=== PATIENT | female | born 1940 | race Caucasian/White ===

== ENCOUNTER → 2017-02-28 | Outpatient (CLI) | payer MEDICARE, OTHER ==
[~2017-02-28] MED LIST: ASPI1TAB PO; COUM2.5T17 PO; HAIRTAB5 PO; MAGN400C2 PO; NITR0.4D6 SL; OCUVCAP2 PO; PERC5TAB12 PO; PRAV40TA2 PO; SYST1SOL OU; TYLE325T5 PO
--- NOTE | 2017-02-28 15:21 | REP ---
MR LUMBAR SPINE WITHOUT CONTRAST: HISTORY: Spinal stenosis. Decreased signal intensity is on T2-weighted images is present in the lumbar intervertebral discs. The discs are decreased in height. These findings are consistent with disc degeneration. There is no disc bulge or herniation at the L1-2 level. There is hypertrophy of the posterior articulating facets. The L1 nerves exit the neural foramina without compression. A diffuse disc bulge is present at the L2-3 level. There is hypertrophy of the ligamenta flava and posterior articulating facets. There are 4 mm of grade I spondylolisthesis of L2 on 3. These findings produce minimal central canal stenosis. The L2 nerves exit the neural foramina without compression. A diffuse disc bulge is present at the L3-4 level. There is hypertrophy of the ligamenta flava and posterior articulating facets. These findings produce mild central canal stenosis. The L3 nerves exit the neural foramina without compression. A diffuse disc bulge is present at the L4-5 level. There is hypertrophy of the ligamenta flava and posterior articulating facets. Synovial cysts 4 mm in size are present medial to the L4-5 facet joints. There are 3 mm of grade I spondylolisthesis of L4 on 5. These findings produce severe central canal stenosis. The L4 nerves exit the neural foramina without compression. A diffuse disc bulge is present at the L5-S1 level. There is no thecal sac compression. There is hypertrophy of the posterior articulating facets. The L4 nerves exit the neural foramina without compression. The conus medullaris is normal in appearance terminating at the level of the L1-2 intervertebral disc. Increased signal intensity on T2-weighted images is present in the inferior endplate of the L3 vertebral body. This represents degenerative change. Normal signal intensity is present in the remaining lumbar vertebral bodies. IMPRESSION: 1. Minimal central canal stenosis at the L2-3 level secondary to disc bulge, ligamentous and facet hypertrophy and grade 1 spondylolisthesis. 2. Mild central canal stenosis at the L3-4 level secondary to disc bulge, ligamentous and facet hypertrophy. 3. Severe central canal stenosis at the L4-5 level secondary to disc bulge, ligamentous and facet hypertrophy , bilateral synovial cysts and grade 1 spondylolisthesis. 4. Diffuse disc bulge at the L5-S1 level without thecal sac or nerve compression. Signed by Francisco Santoyo MD 02/28/2017 03:34 P
== END ==
LOC: M RAD 13:42
PROVIDERS: ATTEND Orthopaedic Surgery
DX: M99.73 Connective tissue and disc stenosis of intervertebral foramina of lumbar region (principal); M51.37 Other intervertebral disc degeneration, lumbosacral region

== ENCOUNTER → 2017-03-08 | Outpatient (CLI) | payer MEDICARE, OTHER ==
--- NOTE | 2017-03-08 10:55 | REP ---
Right ribs four views: Comparison is 12/25/2015. There is no rib fracture or other rib abnormality. There is grade 1 compression deformity of the T7 vertebral body, unchanged. There is diffuse demineralization. There is thoracic scoliosis convex right. This is unchanged. There is mild right glenohumeral osteoarthritis. There is an accessory ossicle at the superior margin of the right acromioclavicular joint.
--- NOTE | 2017-03-08 11:03 | REP ---
Right scapula two views: There is diffuse demineralization. There is acromioclavicular osteoarthritis. There is glenohumeral osteoarthritis. There is no scapular fracture or other scapular abnormality.
--- NOTE | 2017-03-08 11:04 | REP ---
Right shoulder three views: There is diffuse demineralization. There is acromioclavicular glenohumeral osteoarthritis. There is no fracture or dislocation. There is a calcification at the superior margin of the acromioclavicular joint, likely a degenerative ossicle or accessory ossicle. There are no other calcifications. Impression: Osteoarthritis as described. Calcification at the superior margin of the acromioclavicular joint as described. Demineralization.
--- NOTE | 2017-03-08 11:47 | REP ---
RIGHT HUMERUS: Two views of right humerus performed and demonstrate no fracture or dislocation. There is narrowing, spurring and sclerotic change at the acromioclavicular and glenohumeral joints. IMPRESSION: Degenerative changes at the shoulder without evidence of acute fracture or dislocation.
== END ==
LOC: M CLY 09:55
PROVIDERS: ATTEND Nurse Practitioner Family
DX: S49.91XA Unspecified injury of right shoulder and upper arm, initial encounter (principal); S23.41XA Sprain of ribs, initial encounter; W17.89XA Other fall from one level to another, initial encounter; Y92.009 Unspecified place in unspecified non-institutional (private) residence as the place of occurrence of the external cause; M19.011 Primary osteoarthritis, right shoulder; M41.34 Thoracogenic scoliosis, thoracic region; M85.811 Other specified disorders of bone density and structure, right shoulder; Y99.8 Other external cause status; Y93.01 Activity, walking, marching and hiking
CPT/HCPCS: 71100; 73010; 73030; 73060; G0463

== ENCOUNTER → 2017-06-27 | Outpatient (REF) | payer MEDICARE, OTHER | LOC: M SFHCCLAY 09:24 | PROVIDERS: ATTEND Family Medicine | DX: I25.10 Atherosclerotic heart disease of native coronary artery without angina pectoris (principal); E78.00 Pure hypercholesterolemia, unspecified; M81.0 Age-related osteoporosis without current pathological fracture ==

== ENCOUNTER → 2017-06-27 | Outpatient (CLI) | payer MEDICARE, OTHER ==
--- NOTE | 2017-06-27 11:06 | REP ---
Clinical: Pain. Technique: AP, lateral, bilateral oblique views of the left foot. Findings: Age-related osteopenia and mild midfoot degenerative changes are appreciated including subchondral sclerosis and minimal joint space narrowing. Vascular calcifications are identified at the ankle. No acute fracture dislocation. Impression: Age-related osteopenia and mild midfoot degenerative changes. Signed by Aditya Barcenas MD 06/27/2017 10:57 A
== END ==
LOC: M CLY 09:45
PROVIDERS: ATTEND Family Medicine
DX: M79.672 Pain in left foot (principal); M77.42 Metatarsalgia, left foot; M19.072 Primary osteoarthritis, left ankle and foot; M89.9 Disorder of bone, unspecified
CPT/HCPCS: 73630; 90662; G0008

== ENCOUNTER → 2017-07-02 | Outpatient (REF) | payer MEDICARE, OTHER ==
[2017-07-02 13:41] LABS: ALBUMIN 3.6 GM/DL (3.2-5.2); ALBUMIN/GLOBULIN RATIO 1.09 (1.00-1.93); ALKALINE PHOSPHATASE 62 U/L (45-117); ALT/SGPT 23 U/L (12-78); ANION GAP 7 MEQ/L (8-16); AST/SGOT 16 U/L (7-37); BILIRUBIN,TOTAL 0.5 MG/DL (0.2-1.0); BLOOD UREA NITROGEN 18 MG/DL (7-18); CARBON DIOXIDE LEVEL 31 MEQ/L (21-32); CHLORIDE LEVEL 106 MEQ/L (98-107); CHOLESTEROL LEVEL 197 MG/DL (<200); CREATININE FOR GFR 0.68 MG/DL (0.55-1.02); GLOMERULAR FILTRATION RATE > 60.0 (>39); GLUCOSE, FASTING 86 MG/DL (83-110); POTASSIUM SERUM 4.3 MEQ/L (3.5-5.1); SODIUM LEVEL 144 MEQ/L (136-145); TOTAL PROTEIN 6.9 GM/DL (6.4-8.2); TRIGLYCERIDES LEVEL 94 MG/DL (<150)
== END ==
LOC: M SFHCCLAY 07:02
PROVIDERS: ATTEND Family Medicine
DX: I25.10 Atherosclerotic heart disease of native coronary artery without angina pectoris (principal); E78.00 Pure hypercholesterolemia, unspecified; M81.0 Age-related osteoporosis without current pathological fracture

== ENCOUNTER → 2017-07-09 | Outpatient (CLI) | payer MEDICARE, OTHER ==
--- NOTE | 2017-07-09 11:03 | REP ---
Clinical: Trauma. Fall. Technique: AP, lateral, bilateral oblique views of the left wrist. Findings: There is a comminuted intra-articular fracture of the distal radial metaphysis with volar angulation and overlying soft tissue swelling. Osteopenia and degenerative changes limit further evaluation of the carpal bones/wrist and visualized hand. Impression: 1. Comminuted intra-articular fracture of the distal radial metaphysis with volar angulation. 2. Osteopenia and degenerative changes. Signed by Aditya Barcenas MD 07/09/2017 10:55 A
--- NOTE | 2017-07-09 11:04 | REP ---
Clinical: Trauma. Technique: AP and lateral views of the left forearm. Findings: There is an acute fracture involving the distal radial metaphysis with volar angulation. Impression: Acute fracture involving the distal radial metaphysis. Signed by Aditya Barcenas MD 07/09/2017 10:55 A
== END ==
LOC: M CLY 10:07
PROVIDERS: ATTEND Nurse Practitioner Family
DX: S52.572A Other intraarticular fracture of lower end of left radius, initial encounter for closed fracture (principal); M85.88 Other specified disorders of bone density and structure, other site; R60.0 Localized edema; W19.XXXA Unspecified fall, initial encounter; X58.XXXA Exposure to other specified factors, initial encounter; Y92.098 Other place in other non-institutional residence as the place of occurrence of the external cause; Y93.9 Activity, unspecified
CPT/HCPCS: 73090; 73110; G0463

== ENCOUNTER → 2018-01-22 | Outpatient (CLI) | payer MEDICARE, OTHER | LOC: M CLY 14:57 | DX: M77.32 Calcaneal spur, left foot (principal); M79.672 Pain in left foot | CPT/HCPCS: 73610; G0463 ==

== ENCOUNTER → 2018-06-27 | Outpatient (REF) | payer MEDICARE, OTHER | LOC: M SFHCCLAY 08:26 | DX: I25.10 Atherosclerotic heart disease of native coronary artery without angina pectoris (principal); E78.00 Pure hypercholesterolemia, unspecified; M81.0 Age-related osteoporosis without current pathological fracture ==

== ENCOUNTER → 2018-07-07 | Outpatient (REF) | payer MEDICARE, OTHER ==
[2018-07-07 12:47] LABS: ALBUMIN 3.6 GM/DL (3.2-5.2); ALBUMIN/GLOBULIN RATIO 1.24 (1.00-1.93); ALKALINE PHOSPHATASE 72 U/L (45-117); ALT/SGPT 24 U/L (12-78); ANION GAP 7 MEQ/L (8-16); AST/SGOT 18 U/L (7-37); BILIRUBIN,TOTAL 0.4 MG/DL (0.2-1.0); BLOOD UREA NITROGEN 25 MG/DL (7-18); CALCIUM LEVEL 8.8 MG/DL (8.8-10.2); CARBON DIOXIDE LEVEL 29 MEQ/L (21-32); CHLORIDE LEVEL 106 MEQ/L (98-107); CHOLESTEROL LEVEL 213 MG/DL (<200); CHOLESTEROL RISK RATIO 2.315 (<5); CREATININE FOR GFR 0.71 MG/DL (0.55-1.30); GLOMERULAR FILTRATION RATE > 60.0 (>32); GLUCOSE, FASTING 91 MG/DL (70-100); HDL CHOLESTEROL 92 MG/DL (>40); LDL CHOLESTEROL 105 MG/DL (<100); NON-HDL-C 121 MG/DL; SODIUM LEVEL 142 MEQ/L (136-145); TOTAL 25(OH) VITAMIN D 31.6 NG/ML (30.0-100.0); TOTAL PROTEIN 6.5 GM/DL (6.4-8.2); TRIGLYCERIDES LEVEL 81 MG/DL (<150)
== END ==
LOC: M SFHCCLAY 07:05
DX: I25.10 Atherosclerotic heart disease of native coronary artery without angina pectoris (principal); E78.00 Pure hypercholesterolemia, unspecified; M81.0 Age-related osteoporosis without current pathological fracture
CPT/HCPCS: 80053

== ENCOUNTER → 2019-02-09 | Outpatient (REF) | payer MEDICARE, OTHER ==
[~2019-02-09] MED LIST changes: -ASPI1TAB PO; +ASPI81TA26 PO
[2019-02-09 11:58] LABS: CHOLESTEROL RISK RATIO 1.875 (<5)
== END ==
LOC: M SFHCCLAY 06:57
PROVIDERS: ATTEND Family Medicine
DX: I25.10 Atherosclerotic heart disease of native coronary artery without angina pectoris (principal)

== ENCOUNTER → 2019-07-27 | Outpatient (CLI) | payer MEDICARE, OTHER ==
--- NOTE | 2019-07-27 16:26 | REP ---
MRI lumbar spine: 07/27/2019. Indication: Low back pain. Comparison: 02/28/2017. Technique: Multiplanar short and long TR sequences of the lumbar spine were performed without IV Gadolinium. Findings: There is levoscoliosis of the lumbar spine with the convexity centered at L2/L3. Grade 1 anterolisthesis of L2 on L3 and L4 on L5 are present secondary to facet arthrosis. No worrisome marrow signal is present. Disc desiccation and disc space narrowing is present throughout most pronounced at L3/L4 and L5/S1. The visualized cord is unremarkable. L1/L2: There is no focal disc herniation or significant spinal canal / neural foraminal narrowing. L2/L3: Diffuse disc uncovering/bulge and bilateral facet arthropathy are present with moderate spinal canal and neural foraminal narrowing. L3/L4: Diffuse disc bulge and bilateral facet arthropathy are present with moderate to severe left greater than right recess narrowing. Moderate bilateral neural foraminal narrowing is present. L4/L5: Diffuse disc uncovering/bulge and bilateral facet arthropathy as well as ligamental laxity are present with moderate bilateral recess narrowing. Mild to moderate bilateral neural foraminal narrowing is present. L5/S1: Mild diffuse disc bulge and bilateral facet arthropathy are present without significant spinal canal or neural foraminal narrowing. Impression: Scoliosis, spondylolisthesis and multilevel degenerative sequelae as described. The greatest degree of recess narrowing is on the left at L3/L4. Electronically Signed by Arthur Sullivan DO 07/27/2019 04:16 P
== END ==
LOC: M RAD 15:00
PROVIDERS: ATTEND Orthopaedic Surgery
DX: M43.16 Spondylolisthesis, lumbar region (principal); M51.27 Other intervertebral disc displacement, lumbosacral region

== ENCOUNTER → 2019-09-04 | Outpatient (REF) | payer MEDICARE, OTHER ==
[2019-09-04 11:33] LABS: PLATELET COUNT, AUTOMATED 330 10^3/uL (150-450)
[2019-09-04 11:44] LABS: INR 1.03; PROTHROMBIN TIME 13.3 SECONDS (11.8-14.0)
[2019-09-04 11:45] LABS: PARTIAL THROMBOPLASTIN TIME 28.8 SECONDS (25.0-38.4)
== END ==
LOC: M LABDRAW1 09:15
PROVIDERS: ATTEND Physician Assistant
DX: Z01.812 Encounter for preprocedural laboratory examination (principal); M53.3 Sacrococcygeal disorders, not elsewhere classified

== ENCOUNTER → 2020-01-08 | Outpatient (CLI) | payer MEDICARE, OTHER | LOC: M LABSMTC 09:57 | PROVIDERS: ATTEND Physical Medicine & Rehabilitation | DX: Z11.59 Encounter for screening for other viral diseases (principal) ==

== ENCOUNTER → 2020-02-23 | Outpatient (REF) | payer MEDICARE, OTHER ==
[~2020-02-23] MED LIST changes: +ACET1TAB55 PO; +ALAW0.02 OU; +COLA100C5 PO; +CVS-161 PO; +D31000TA2 PO; +ECOT81TA5 PO; +XARE10TA PO
[2020-02-23 12:57] LABS: ALBUMIN 3.5 GM/DL (3.2-5.2); ALT/SGPT 121 U/L (12-78); BILIRUBIN,TOTAL 0.4 MG/DL (0.2-1.0); BLOOD UREA NITROGEN 16 MG/DL (7-18); CARBON DIOXIDE LEVEL 28 MEQ/L (21-32); CHLORIDE LEVEL 111 MEQ/L (98-107); CHOLESTEROL LEVEL 171 MG/DL (<200); CHOLESTEROL RISK RATIO 2.085 (<5); CREATININE FOR GFR 0.55 MG/DL (0.55-1.30); GLOMERULAR FILTRATION RATE > 60.0 (>32); GLUCOSE, FASTING 85 MG/DL (70-100); HDL CHOLESTEROL 82 MG/DL (>40); LDL CHOLESTEROL 70 MG/DL (<100); NON-HDL-C 89 MG/DL; SODIUM LEVEL 144 MEQ/L (136-145); TOTAL PROTEIN 6.6 GM/DL (6.4-8.2); TRIGLYCERIDES LEVEL 94 MG/DL (<150)
== END ==
LOC: M SFHCCLAY 07:05
PROVIDERS: ATTEND Family Medicine
DX: M81.0 Age-related osteoporosis without current pathological fracture (principal); I25.10 Atherosclerotic heart disease of native coronary artery without angina pectoris; Z79.01 Long term (current) use of anticoagulants; Z79.82 Long term (current) use of aspirin; Z79.899 Other long term (current) drug therapy

== ENCOUNTER → 2020-03-23 | Outpatient (CLI) | payer MEDICARE, OTHER ==
--- NOTE | 2020-05-21 10:34 | REP ---
RIGHT RIB SERIES: 4-VIEWS HISTORY: Contusion right anterior chest. FINDINGS: 4-views of the right rib are performed. There is osteopenia. No fracture or bone lesion is seen. There is mild biapical pleural thickening on the accompanying PA view of the chest with very mild bibasilar interstitial fibrotic change. The lungs are clear. There is no pneumothorax or pleural effusion. The heart is normal in size. There is calcification of the thoracic aorta. There is curvature of the lower thoracic spine convex to the right and at the thoracolumbar junction convex to the left. IMPRESSION: No evidence of right rib fracture. MTDD
== END ==
LOC: M WUC 16:07
PROVIDERS: ATTEND Physician Assistant
DX: S20.211A Contusion of right front wall of thorax, initial encounter (principal); I70.0 Atherosclerosis of aorta; X58.XXXA Exposure to other specified factors, initial encounter; Y92.9 Unspecified place or not applicable

== ENCOUNTER → 2020-05-04 | Outpatient (CLI) | payer MEDICARE, OTHER ==
--- NOTE | 2020-05-13 13:19 | REP ---
CHEST X-RAY: 2-VIEWS HISTORY: Interstitial fibrosis. COMPARISON: 03/23/2020. FINDINGS: The lungs are hyperinflated as before. Pleural angles are sharp. No new infiltrate is seen. Heart is not enlarged. The thoracic spine shows an S-shaped moderate scoliotic curve unchanged. There are clips in the left upper quadrant of the abdomen. Pulmonary vasculature is not increased. IMPRESSION: Thoracic scoliosis and mild hyperinflation. Otherwise, no acute disease. MTDD
== END ==
LOC: M CLY 13:06
PROVIDERS: ATTEND Nurse Practitioner Family
DX: J84.9 Interstitial pulmonary disease, unspecified (principal); M17.11 Unilateral primary osteoarthritis, right knee

== ENCOUNTER → 2020-05-04 | Outpatient (REF) | payer MEDICARE, OTHER ==
[2020-05-04 16:54] LABS: ALBUMIN 3.6 GM/DL (3.2-5.2); ALT/SGPT 94 U/L (12-78); BILIRUBIN,TOTAL 0.3 MG/DL (0.2-1.0); BLOOD UREA NITROGEN 21 MG/DL (7-18); CARBON DIOXIDE LEVEL 30 MEQ/L (21-32); CHLORIDE LEVEL 110 MEQ/L (98-107); CREATININE FOR GFR 0.69 MG/DL (0.55-1.30); GLOMERULAR FILTRATION RATE > 60.0 (>32); GLUCOSE, FASTING 115 MG/DL (70-100); POTASSIUM SERUM 3.9 MEQ/L (3.5-5.1); SODIUM LEVEL 142 MEQ/L (136-145); TOTAL PROTEIN 6.9 GM/DL (6.4-8.2)
[2020-05-04 16:59] LABS: HEMOGLOBIN 13.6 g/dl (12.0-15.5); MEAN CORPUSCULAR HEMOGLOBIN 31.3 pg (27.0-33.0); MEAN CORPUSCULAR HGB CONC 31.6 g/dl (32.0-36.5); MEAN CORPUSCULAR VOLUME 98.9 fl (80.0-96.0); PLATELET COUNT, AUTOMATED 357 10^3/uL (150-450); RED BLOOD COUNT 4.35 10^6/uL (4.00-5.40); WHITE BLOOD COUNT 8.5 10^3/uL (4.0-10.0)
[2020-05-04 17:23] LABS: INR 0.98; PROTHROMBIN TIME 13.2 SECONDS (12.5-14.3)
[2020-05-04 18:27] LABS: ERYTHROCYTE SEDIMENTATION RATE 6 mm/hr (0-30)
== END ==
LOC: M LABDRAWC 16:10
PROVIDERS: ATTEND Orthopaedic Surgery
DX: M17.11 Unilateral primary osteoarthritis, right knee (principal)

== ENCOUNTER → 2020-05-06 | Outpatient (CLI) | payer MEDICARE, OTHER | LOC: M LABSMTC 09:37 | PROVIDERS: ATTEND Anesthesiology | DX: Z01.812 Encounter for preprocedural laboratory examination (principal); Z20.828 Contact with and (suspected) exposure to other viral communicable diseases | CPT/HCPCS: C9803; U0003 ==

== ENCOUNTER 2020-05-11 07:26 | Inpatient (IN) | payer MEDICARE, OTHER ==
--- NOTE | 2020-05-10 14:26 | HPE ---
DATE OF ADMISSION: 05/11/2020 ATTENDING: Dr. Alphonso Rouse. CHIEF COMPLAINT: Right knee pain and stiffness. HISTORY: This is an 80-year-old female patient with progressively worsening right knee pain and stiffness. She failed to improve with conservative management. She has pain with weightbearing activities and activities of daily living. She is elected for surgery for her continued symptoms. She is consented for a right total knee arthroplasty by Dr. Rouse. X-rays are notable for end- stage degenerative changes of the right knee. Medical optimization completed by her primary care office at the [facility]. ALLERGIES: TICLID. CURRENT MEDICATIONS: * Aspirin 81 mg one tablet once per day. She will discontinue that as of today. She was not told to discontinue that prior to today. * Pravastatin 40 mg one tablet once per day. * Vqxa-qxv-zoeihct calcium with vitamin D. * Iqef-dxw-kiyorrj magnesium. * Zcsd-smy-dbedtfi vitamin D. MEDICAL CONDITIONS: * Symptomatic osteoarthritis of the right knee. * Coronary artery disease status post stent placement. * History of myocardial infarction. * Elevated cholesterol. SURGICAL HISTORY: * Total knee arthroplasty on the left side. * Gallbladder removed. * Appendectomy. FAMILY HISTORY: Noncontributory. REVIEW OF SYSTEMS: Denies fever or chills. Denies chest pain, shortness of breath, or cough. Denies difficulty with breathing. She denies exposure to COVID. Denies travel outside of [place]. Denies abdominal pain. She has persistent pain in the right knee with weightbearing activities and activities of daily living. PHYSICAL EXAMINATION: GENERAL: The patient ambulates with a slight limping gait favoring her right side. RIGHT KNEE EXAM: Skin is intact, no erythema, edema, or ecchymosis. Irritability at the extremes of range of motion. The calf is soft, nontender to palpation. Stable to varus and valgus stress. It is a well-perfused right lower extremity. NECK: Supple without adenopathy or JVD. LUNGS: Clear to auscultation without rales or wheeze. HEART: Regular rate and rhythm. ABDOMEN: Bowel sounds are present. VITAL SIGNS: Current blood pressure 120/60, pulse 89, respirations 20, temperature 98.1, weight 115 pounds, height 5 feet 2 inches. LABORATORY DATA: Glucose 115, BUN 21, creatinine 0.69. Sodium 142, potassium 3.9. Pro time 13.2, INR 0.98. Sedimentation rate 6. WBC count 8.5, RBC count 4.3, hemoglobin 13.6, hematocrit 43.0. EKG: EKG notable for sinus rhythm. CHEST X-RAY: Not present for review today. IMPRESSION: Symptomatic osteoarthritis of the right knee. PLAN: She is consented by Dr. Rouse for a right total knee arthroplasty. We discussed the use of the aspirin and she needs to quit it as of today. She should have stopped it 5-7 days ago. I do not feel that it would change our plan for the surgery at this point, as the anesthesia just needs to be aware that she did take her aspirin as of today, 05/09/2020. She understands the importance of being n.p.o. and what n.p.o. means. She will call the hospital one day prior. She understands what time to call. She understands to be on time for her appointment. We went over her directions at this point. In terms of COVID, she should be at home in self-quarantine until the time of her surgery. All of her questions were answered. IESHA
[~2020-05-11] VITALS: Ht 157.5 cm; Wt 53.0 kg
[~2020-05-11 07:26] MED LIST changes: +CelecoXIB 400 MG CAP PO ONE; -ECOT81TA5 PO; +LR 1,000 ML IV ONE; +MIDAZOLAM INJ 2MG/2ML VIAL (J2250 PER 1MG) IV SCH; +PERCOCET 5MG/325MG TAB PO ONE; +PREGABALIN 75 MG CAP(LYRICA) PO ONE; -XARE10TA PO; +ceFAZolin SOD 2 GM in IV 1 EA IV ONE; +fentaNYL 100 MCG/2 ML INJECTION (J3010) IV SCH
[2020-05-11] MEDS ORDERED: TRANEXAMIC ACID 100 MG/ML 10ML VIAL As Ordered ONE (08:35)
[2020-05-11] MEDS ORDERED: BUPIVACAINE/EPIN 0.25% 30 ML VIAL As Ordered ONE (08:35)
[2020-05-11] MEDS ORDERED: BUPIVACAINE HCL 0.5% 10ML VIAL As Ordered ONE (08:35)
[2020-05-11] MEDS ORDERED: BUPIVACAINE LIPOSOME/PF 1.3% 20ML VIAL (13.3MG/ML)(EXPAREL)(C9290 PER1MG) As Ordered ONE (08:36)
[2020-05-11] MEDS ORDERED: EPINEPHrine INJ 1 MG/ML 1ML AMP As Ordered ONE (08:36)
[2020-05-11] MEDS ORDERED: ACETAMINOPHEN 1000MG 100ML IV BTL (OFIRMEV) (J0131 PER 10MG) As Ordered ONE (08:38)
[2020-05-11] MEDS ORDERED: ONDANSETRON 4MG/2ML VIAL As Ordered ONE (08:38)
[2020-05-11] MEDS ORDERED: propofoL 500 MG/50 ML VIAL As Ordered ONE (08:38)
[2020-05-11] MEDS ORDERED: dexameTHASONE 4 MG/ML 1ML VIAL (J1100 PER 1MG) As Ordered ONE (08:38)
[2020-05-11] MEDS ORDERED: LIDOCAINE 2% 100MG/5ML SDV (FOR ANES.) As Ordered ONE (08:38)
[2020-05-11] MEDS ORDERED: KETOROLAC 60MG 2ML VIAL As Ordered ONE (08:38)
[2020-05-11] MEDS ORDERED: fentaNYL 100 MCG/2 ML INJECTION (J3010) As Ordered ONE ×2 (08:39→09:32)
[2020-05-11] MEDS ORDERED: MIDAZOLAM INJ 2MG/2ML VIAL (J2250 PER 1MG) As Ordered ONE ×2 (08:39→09:32)
[2020-05-11] MEDS ORDERED: propofoL 200 MG/20 ML VIAL As Ordered ONE (08:40)
[2020-05-11] MEDS ORDERED: CLINDAMYCIN INJ 900MG/6ML VIAL As Ordered ONE (10:06)
[2020-05-11] MEDS ORDERED: EPINEPHrine 1MG/10ML SYRINGE 1.5IN ONE (11:27)
[2020-05-11] MEDS ORDERED: dexameTHASONE 10MG/1ML VIAL PRES.FREE (J1100 PER 1MG) ONE (11:27)
[2020-05-11] MEDS ORDERED: ROPIvacaine 0.5% 30ML INJECTION (J2795 PER 1MG) ONE (11:27)
[2020-05-11] MEDS ORDERED: oxyCODONE 5MG TAB PO PRN (12:45)
[2020-05-11] MEDS ORDERED: ONDANSETRON 4MG/2ML VIAL IV PRN ×2 (12:45→13:45)
[2020-05-11] MEDS ORDERED: fentaNYL 100 MCG/2 ML INJECTION (J3010) IV PRN (12:45)
[2020-05-11] MEDS ORDERED: METOCLOPRAMIDE INJ 10MG/2ML VIAL (J2765 PER 1) IV PRN (12:45)
[2020-05-11] MEDS ORDERED: MEPERIDINE INJ 25 MG/ML VIAL (J2175) IV PRN (12:45)
[2020-05-11] MEDS ORDERED: LR 1,000 ML IV SCH (12:45)
[2020-05-11] MEDS ORDERED: MORPHINE 4 MG/ML 1ML VIAL/SYRINGE (J2270) IV PRN (13:45)
[2020-05-11] MEDS ORDERED: ACETAMINOPHEN TAB 650MG DOSE (2X325MG) PO PRN (13:45)
[2020-05-11] MEDS ORDERED: MORPHINE 2 MG/ML 1ML VIAL (J2270) IV PRN (13:45)
[2020-05-11] MEDS ORDERED: PERCOCET 5MG/325MG TAB PO PRN (13:45)
[2020-05-11] MEDS ORDERED: PROMETHAZINE INJ 25 MG/ML VIAL (J2550) IV PRN (13:45)
--- NOTE | 2020-05-11 15:05 | CR.PDOC ---
General Date of Consultation: May 11, 2020 Referring Provider: Alphonso Rouse MD Attending Physician: JOSE DE JESUS ADDISON MD Consultation REASON FOR CONSULTATION/CHIEF COMPLAINT: s/p R total knee arthroplasty HISTORY OF PRESENT ILLNESS: Mrs. Epstein is a very pleasant 80-year-old female with a history of end-stage osteoarthritis of the right knee, coronary artery disease status post stent placement, hypercholesterolemia. She is postop day 0 following a right total knee arthroplasty by Dr. Rouse. She is alert and awake. Hospitalist service was consulted for comanagement of medical problems. At this time. She denies any chest pain, shortness of breath, nausea, vomiting, subjective fevers or chills. She is alert and oriented 3. She states that she sustained a myocardial infarction approximately 10 years ago. She continues to take aspirin and statin, but no other cardiovascular medications. ALLERGIES: Please see below. HOME MEDICATIONS: Please see below. PAST MEDICAL HISTORY: VT s/p stenting Hypercholesterolemia HTN Low vitamin D PAST SURGICAL HISTORY: L total knee replacement Cholecystectomy Appendectomy FAMILY HISTORY: Review with patient, no contributory findings SOCIAL HISTORY: Patient denies smoking Patient denies etoh use Patient denies illicit drug use REVIEW OF SYSTEMS: CONSTITUTIONAL: patient denies fevers, chills HEENT: patient denies blurred vision, loss of vision, headache,. CARDIOVASCULAR: patient denies chest pain, palpitations. RESPIRATORY: patient denies shortness of breath, cough, hemoptysis. GASTROINTESTINAL: patient denies abdominal pain, n/v/d, blood in stool. GENITOURINARY: patient denies dysuria, discharge. SKIN: patient denies rashes. MUSCULOSKELETAL: patient denies joint pain, neck pain. NEUROLOGICAL: patient denies focal weakness, numbness, seizures. PSYCHIATRIC: patient denies SI/HI. ENDOCRINE: patient denies polyuria, heat intolerance, cold intolerance. HEMATOLOGIC/LYMPHATIC: patient denies easy bruising. PHYSICAL EXAMINATION: VITAL SIGNS: please see below General: NAD, comfortable HEENT: PERRLA, EOMI, sclerae clear Neck: supple, normal ROM, no JVD Respiratory: lungs CTAB, no wheeze, no rales, no crackles CVS: RRR, normal S1, S2, no murmurs Abdo: soft, no masses, no hepatosplenomegaly, BS+, no rebound tenderness Extremities: no edema, pulses 2+ MSK: no joint deformities, normal ROM. R knee dressing clean, dry and intact. Neuro: no focal neuro deficits, moving all 4 extremities, CN2-12 intact. Strength 5/5 in all 4 extremities. No nystagmus. Psych: calm, cooperative, AAO x 3 LABORATORY DATA: Please see below. ASSESSMENT/PLAN: 1.R knee total arthroplasty: management per Orthopedics service. kamila-op Ancef. Pain control, DVT ppx per ortho service. 2.Constipation ppx: bowel regimen. 3.Hx of CAD: c/w asa/statin. 4.HLD: c/w statin 5.HTN: controlled off medication. BP appropriate for age group. 6. Low vit D: c/w OTC replacement DVT ppx: xarelto per ortho service. Vital Signs/I&O Vital Signs Date Time Temp Pulse Resp B/P (MAP) Pulse Ox O2 Delivery O2 Flow Rate FiO2 05/11/20 14:35 72 18 138/88 (105) 96 Room Air 05/11/20 14:00 98 05/11/20 10:15 2 Allergies Coded Allergies: ticlopidine (Verified Adverse Reaction, Unknown, INCREASED LIVER FUNCTION TEST, 05/11/20) Home Medications Scheduled Acetaminophen (Acetaminophen) 325 Mg Tablet, 325 MG PO ASDIRECTED, (Reported) Aspirin (Aspirin EC) 81 Mg Tab, 81 MG PO DAILY, (Reported) C,E,Zinc,Copper 24/Om3/Lut/My (Ocuvite Adult 50 Plus Softgel) 1 Cap Cap, 1 CAP PO DAILY, (Reported) Ketotifen Fumarate ([place]) 0.025% 10ML Drops, 1 DROP OU BID, #10 (Reported) Magnesium Oxide (Magnesium) 400 Mg Cap, 400 MG PO DAILY, (Reported) Multivitamin with Minerals (Hair, Skin and Nails) 1 Each Tablet, 1 TAB PO DAILY, (Reported) Pravastatin Sodium (Pravastatin Sodium) 40 Mg Tab, 40 MG PO QHS, (Reported) Miscellaneous Medications Cholecalciferol (Vitamin D3) (Vitamin D3) 1,000 Unit Tablet, 2,000 UNITS PO, (Reported) JOSE DE JESUS ADDISON MD May 11, 2020 15:05
[2020-05-11] MEDS ORDERED: SENNA 8.6 MG TAB (SENOKOT) PO PRN (15:15)
[2020-05-11] MEDS ORDERED: MOM 30ML SUSPENSION UDC PO PRN (15:15)
[2020-05-11 17:25] VITALS: BP 143/83
[2020-05-11] MEDS: D5W/0.45% SODIUM CHLORIDE 1,000 ML IV SCH (17:38)
[2020-05-11] MEDS: ceFAZolin SOD 2 GM in IV 1 EA IV SCH (17:38)
[2020-05-11 17:40] VITALS: BP 128/69
[2020-05-11] MEDS: PRAVASTATIN 20 MG TAB PO SCH (20:28)
[2020-05-11 22:00] VITALS: BP 124/69
[2020-05-11] MEDS: PERCOCET 5MG/325MG TAB PO PRN (23:43)
[2020-05-12 02:00] VITALS: BP 126/68
[2020-05-12] MEDS: ceFAZolin SOD 2 GM in IV 1 EA IV SCH (02:32)
[2020-05-12] MEDS: PERCOCET 5MG/325MG TAB PO PRN ×3 (05:48→20:53)
[2020-05-12] MEDS: D5W/0.45% SODIUM CHLORIDE 1,000 ML IV SCH ×2 (05:49→15:52)
[2020-05-12 06:00] VITALS: BP 119/72
[2020-05-12] MEDS ORDERED: PERC5TAB12 PO (06:17)
[2020-05-12] MEDS ORDERED: XARE10TA PO ×2 (06:17→06:22)
--- NOTE | 2020-05-12 07:40 | IPNPDOC ---
Date Seen The patient was seen on 05/12/20. Progress Note SUBJECTIVE: Patient seen and examined at bedside. POD#1 s/p R total knee arthroplasty. Doing well. Knee pain moderate when weight bearing, otherwise mil d. Ambulating, working with PT. No acute events overnight. Denies CP, n/v/d. OBJECTIVE PHYSICAL EXAMINATION: VITAL SIGNS: Please see below. General: NAD, comfortable HEENT: PERRLA, EOMI, sclerae clear Neck: supple, normal ROM, no JVD Respiratory: lungs CTAB, no wheeze, no rales, no crackles CVS: RRR, normal S1, S2, no murmurs Abdo: soft, no masses, no hepatosplenomegaly, BS+, no rebound tenderness Extremities: no edema, pulses 2+ MSK: no joint deformities, normal ROM. R knee dressing clean, dry and intact. Neuro: no focal neuro deficits, moving all 4 extremities, CN2-12 intact. Strength 5/5 in all 4 extremities. No nystagmus. Psych: calm, cooperative, AAO x 3 LABORATORY DATA, IMAGING STUDIES, MICROBIOLOGY: Please see below. DVT prophylaxis ordered?: Y, xarelto Ass;ssment: 80-year-old female with a history of end-stage osteoarthritis of the right knee, coronary artery disease status post stent placement, hypercholesterolemia. She is postop day 1 following a right total knee arthroplasty by Dr. Rouse. 1.R knee total arthroplasty: management per Orthopedics service. kamila-op Ancef. Pain control, DVT ppx per ortho service. 2.Constipation ppx: bowel regimen. 3.Hx of CAD: c/w asa/statin. 4.HLD: c/w statin 5.HTN: controlled off medication. BP appropriate for age group. 6. Low vit D: c/w OTC replacement DVT ppx: xarelto per ortho service. DISPOSITION: likely DC today by primary service. PT/OT deemed safe for DC home. VS, I&O, 24H, Fishbone Vital Signs/I&O Vital Signs Date Time Temp Pulse Resp B/P (MAP) Pulse Ox O2 Delivery O2 Flow Rate FiO2 05/12/20 06:18 18 05/12/20 06:00 97.5 98 119/72 (88) 94 Room Air 05/11/20 10:15 2 I&O- Last 24 Hours up to 6 AM 05/12/20 06:00 Intake Total 2310 ml Output Total 425 ml Balance 1885 ml JOSE DE JESUS ADDISON MD May 12, 2020 07:40
[2020-05-12] MEDS: ASPIRIN 81 MG ENTERIC TAB PO SCH (08:57)
[2020-05-12] MEDS: MAGNESIUM OXIDE 400 MG TAB (MAG-OX) PO SCH (08:57)
[2020-05-12] MEDS: MIRALAX *UNIT DOSE* 17GM PACKET PO SCH (08:58)
[2020-05-12 10:00] VITALS: BP 89/58
[2020-05-12 10:05] VITALS: BP 120/68
[2020-05-12 14:00] VITALS: BP 109/60
[2020-05-12] MEDS ORDERED: RIVAROXABAN 10 MG TAB (XARELTO) PO SCH (18:00)
[2020-05-12 20:00] VITALS: BP 111/59
[2020-05-12] MEDS: PRAVASTATIN 20 MG TAB PO SCH (20:52)
[2020-05-13] MEDS: PERCOCET 5MG/325MG TAB PO PRN ×2 (03:12→10:09)
[2020-05-13] MEDS ORDERED: ECOT81TA5 PO (06:15)
[2020-05-13 06:29] VITALS: BP 106/59
--- NOTE | 2020-05-13 07:35 | IPNPDOC ---
Date Seen The patient was seen on 05/13/20. Progress Note SUBJECTIVE: Patient seen and examined at bedside. POD#2 s/p R total knee arthroplasty. Doing well. Cleared by PT/OT for safe return home. No acute events overnight. Denies CP, n/v/d. OBJECTIVE PHYSICAL EXAMINATION: VITAL SIGNS: Please see below. General: NAD, comfortable HEENT: PERRLA, EOMI, sclerae clear Neck: supple, normal ROM, no JVD Respiratory: lungs CTAB, no wheeze, no rales, no crackles CVS: RRR, normal S1, S2, no murmurs Abdo: soft, no masses, no hepatosplenomegaly, BS+, no rebound tenderness Extremities: no edema, pulses 2+ MSK: no joint deformities, normal ROM. R knee dressing clean, dry and intact. Neuro: no focal neuro deficits, moving all 4 extremities, CN2-12 intact. Strength 5/5 in all 4 extremities. No nystagmus. Psych: calm, cooperative, AAO x 3 LABORATORY DATA, IMAGING STUDIES, MICROBIOLOGY: Please see below. DVT prophylaxis ordered?: Y, xarelto Ass;ssment: 80-year-old female with a history of end-stage osteoarthritis of the right knee, coronary artery disease status post stent placement, hypercholesterolemia. She is postop day 2 following a right total knee arthroplasty by Dr. Rouse. 1.R knee total arthroplasty: management per Orthopedics service. kamila-op Ancef. Pain control, DVT ppx per ortho service. 2.Constipation ppx: bowel regimen. 3.Hx of CAD: c/w asa/statin. 4.HLD: c/w statin 5.HTN: controlled off medication. BP appropriate for age group. 6. Low vit D: c/w OTC replacement DVT ppx: xarelto per ortho service. DISPOSITION:planned for DC today. Require discharge medication planning/insurance approval. VS, I&O, 24H, Fishbone Vital Signs/I&O Vital Signs Date Time Temp Pulse Resp B/P (MAP) Pulse Ox O2 Delivery O2 Flow Rate FiO2 05/13/20 06:29 99.3 91 20 106/59 (75) 97 Room Air 05/11/20 10:15 2 I&O- Last 24 Hours up to 6 AM 05/13/20 05:59 Intake Total 2620 ml Output Total 200 ml Balance 2420 ml JOSE DE JESUS ADDISON MD May 13, 2020 07:35
[2020-05-13] MEDS ORDERED: FLUBLOK(EGG FREE)(QUAD)INFLUENZA VACC 0.5ML SYRINGE 18YRS & OLDER IM ONE (09:00)
[2020-05-13] MEDS: MIRALAX *UNIT DOSE* 17GM PACKET PO SCH (09:01)
[2020-05-13] MEDS: MAGNESIUM OXIDE 400 MG TAB (MAG-OX) PO SCH (09:02)
[2020-05-13] MEDS: ASPIRIN 81 MG ENTERIC TAB PO SCH (09:02)
--- NOTE | 2020-05-17 12:52 | DS ---
DATE OF ADMISSION: 05/11/2020 DATE OF DISCHARGE: 05/13/2020 ATTENDING PHYSICIAN: Alphonso Rouse MD ADMITTING DIAGNOSIS: Right knee osteoarthritis. OTHER DIAGNOSES: Hyperlipidemia, coronary artery disease status post stent, history of acute myocardial infarction (AMI). DISCHARGE DIAGNOSIS: Right knee osteoarthritis status post right total knee arthroplasty. HISTORY: Patient is an 80-year-old female with progressively worsening right knee pain and stiffness. She failed to improve with conservative measures. She continued to have symptoms with weightbearing activities and activities of daily living. She consented for an elective right total knee arthroplasty with Dr. Rouse for her continued symptoms. OPERATION PERFORMED: Right total knee arthroplasty. HOSPITAL COURSE: The patient underwent a right total knee arthroplasty under spinal anesthesia with femoral nerve block. Surgery was uneventful and her hospital course was without complication. She was up with physical therapy per their protocol weightbearing as tolerated on the right lower extremity. Patient was discharged on oral pain medications and will resume her preoperative medications and diet. Patient will use her thromboembolic deterrent stockings and take her anticoagulant postoperatively as directed to prevent deep venous thrombosis. Patient will followup in our office in 12-14 days for a wound check and reevaluation. She will give us a call sooner if there is any increase in pain, redness, drainage, numbness or tingling in the extremity, fever greater than 101 degrees, or any other concerns. Please see medical record for additional details. CLEOPATRAD
--- NOTE | 2020-05-18 08:47 | REP ---
RIGHT KNEE SERIES: 2-VIEWS HISTORY: Postop. COMPARISON: Right knee radiographs from 09/2009. FINDINGS: The patient is status post right knee arthroplasty. Femoral, tibial, and patellar prosthetic components are well-aligned with respect to each other and their [place] bones. There is diffuse osteopenia. Extensive vascular calcification is noted. Periarticular soft tissue emphysema is seen. IMPRESSION: Status post right knee arthroplasty. MTDD
--- NOTE | 2020-05-18 09:24 | RO ---
DATE OF OPERATION: 05/11/2020 PREOPERATIVE DIAGNOSIS: Right knee osteoarthritis. POSTOPERATIVE DIAGNOSIS: Right knee osteoarthritis. PROCEDURE: Right total knee replacement. SURGEON: Alphonso Rouse M.D. ANESTHESIA: Spinal. ESTIMATED BLOOD LOSS: Less than 70 mL, replaced with crystalloid. COMPLICATIONS: No complications. INDICATIONS: Progressive discomfort in the knee and radiographic evidence of right knee osteoarthritis. The patient has elected for operative intervention. COMPONENTS USED: Include the DePuy Attune system, rotating platform, cruciate sparing knee replacement, size 6 femoral component, size 6 mm polyethylene component/spacer, size 6 tibial tray, size 32 mm patellar button. Radiopaque bone cement. INDICATIONS: Progressive discomfort, right knee. The patient has elected for operative intervention. Consent was given in detail including a minesh discussion of pathology involved, procedure performed, alternatives including doing nothing, risks including but not limited to pain, failure, infection, bleeding, blood loss and complete relief from symptoms, blood clots, need for more surgery risks and other problems. The patient agrees to proceed. OPERATIVE COURSE: The patient was identified in the holding area. Site and side verified. Block was accomplished, brought to the operating room. Spinal was accomplished. The patient was positioned for exposure of the right knee for arthroplasty. A tourniquet was placed high on the right thigh. The tourniquet was not inflated during the procedure. She was sterilely prepped and draped in the usual fashion for exposure. Incision was outlined with a marking pen, infiltrated with 1/4% Marcaine with epinephrine and then 6 mL of 1/4% Marcaine with epinephrine was injected intra-articularly. The incision for a standard midline incision was made with a 10 blade, developed down through skin, subcuticular tissues to the extensor mechanism. Standard medial parapatellar arthrotomy accomplished. The medial release was accomplished sharply. The infrapatellar fat pad was sacrificed and removed. The patella was everted. The knee was placed in a flexed position. The femoral opening drill was utilized. The intramedullary guide was placed 6 degrees of valgus alignment. It was pinned into place, intramedullary guide removed. I placed retractors. Mr. Yo utilized the oscillating saw to make the distal femoral cut. The knee was flexed further. AP sizing guide was applied, a size [address], 3 degrees external rotation. Next, once this was accomplished, the guide was removed. Pins were retained. A 4-in-1 cutting block was installed. It was secured with threaded pins. Next, Mr. oY secured retractors while I utilized the oscillating saw to make the anterior, posterior and then the chamfer cuts. Next, this guide was then removed. Next, the sulcus guide, size 6 was applied and I made the sulcus cut using the oscillating saw. Next, the extramedullary tibial guide was installed 4 mm off the medial side. Guide was pinned into place. Retractors were placed and the tibial cut was made with an oscillating saw. Next, once this was accomplished, the lamina spreaders were installed and I removed the meniscal tissue and verified no loose bodies in the posterior capsule. Next, this was accomplished and also the anterior cruciate had been removed. The sizing blocks were utilized with size 6, stable in extension, stable in flexion. Next, appropriate retractors were placed. The tibia was sized for a 6 template which was pinned into place. Next, tibial broach guide was installed. A tibial drill was utilized. Tibial broach was utilized. The broach was left in place, the guide removed. Next, a trial femoral component was installed. A trial 6 spacer was installed. The knee was placed through a range of motion. We were able to achieve full extension and stable flexion, were stable with varus, valgus stress. Femoral drill holes were made with a step drill. Next, the knee was extended, patella everted. A posterior patellar cut was made with the oscillating saw while Mr. Yo secured the patella with retractors. Next, a 32 mm patella cutting jig was installed, held into place by Mr. Yo. I made the patella plug drill holes. Next, a trial patella was installed, 32 mm. The knee was placed through a range of motion. Patellar tracking was excellent. Next, once this was accomplished, all trial components were removed. Capsular tissues were anesthetized with Exparel. We also applied TXA solution for hemostasis. Pulse lavage was then accomplished while Mr. Yo stepped to the back table to prepare the radiopaque bone cement. Next, knee surfaces were dried. When the cement was the appropriate consistency, I applied cement for the proximal tibia and cemented the tibial component. I cleared excess cement using curettes. We installed the nontrial tibial rotating platform, polyethylene. Next, cement was applied to the distal femur. Cruciate sparing femoral component was installed, tamped into place with the nylon impactor, nontrial. Excess cement cleared with curettes. Next, the knee was placed in extended position. A small amount of cement was placed on the posterior patella. Nontrial patella was then cemented into place, secured using the clamp. Excess cement cleared using curettes. Next, pulse lavage was accomplished and again, I applied the remaining TXA solution and we also instilled the remaining Exparel solution through subcuticular tissues. Next, once the cement was the appropriate consistency, the clamps were removed. The knee was inspected. The knee was again placed through a range of motion. The patella was stable. The knee had a good range of motion. Next, arthrotomy was closed with interrupted and Stratafix running stitch. Next, the dermis was closed with interrupted stitch. Prineo dressing was applied. No tourniquet had been utilized for this procedure. The patient was moved to the recovery room in good condition. For further details. please refer to the medical record. Mr. Yo was present and participated in the entirety of rhe case in capacity of assistant professor of biochemistry. IESHA
== END 2020-05-13 10:15 | disposition home health service (06) | DRG 470 ==
LOC: M OR 07:26 → M MS5PR 17:05
PROVIDERS: ADMIT Orthopaedic Surgery; ATTEND Orthopaedic Surgery
PROC: 0SRC0J9 Replacement of Right Knee Joint with Synthetic Substitute, Cemented, Open Approach (ICD-10-PCS; principal; 2020-05-11 09:40)
DX: M17.11 Unilateral primary osteoarthritis, right knee (principal); I25.10 Atherosclerotic heart disease of native coronary artery without angina pectoris; I25.2 Old myocardial infarction; E55.9 Vitamin D deficiency, unspecified; K59.00 Constipation, unspecified; E78.00 Pure hypercholesterolemia, unspecified; I10 Essential (primary) hypertension; R26.89 Other abnormalities of gait and mobility; Z79.82 Long term (current) use of aspirin; Z79.899 Other long term (current) drug therapy; Z96.652 Presence of left artificial knee joint; Z90.49 Acquired absence of other specified parts of digestive tract; Z95.5 Presence of coronary angioplasty implant and graft

== ENCOUNTER → 2020-06-20 | Outpatient (REF) | payer MEDICARE, OTHER ==
[~2020-06-20] MED LIST changes: -CelecoXIB 400 MG CAP PO ONE; +ECOT81TA5 PO; -LR 1,000 ML IV ONE; -MIDAZOLAM INJ 2MG/2ML VIAL (J2250 PER 1MG) IV SCH; -PERCOCET 5MG/325MG TAB PO ONE; -PREGABALIN 75 MG CAP(LYRICA) PO ONE; +XARE10TA PO; -ceFAZolin SOD 2 GM in IV 1 EA IV ONE; -fentaNYL 100 MCG/2 ML INJECTION (J3010) IV SCH
[2020-06-20 11:49] LABS: HEMATOCRIT 43.9 % (36.0-47.0); HEMOGLOBIN 13.4 g/dl (12.0-15.5); MEAN CORPUSCULAR HGB CONC 30.5 g/dl (32.0-36.5); MEAN CORPUSCULAR VOLUME 98.2 fl (80.0-96.0); PLATELET COUNT, AUTOMATED 414 10^3/uL (150-450); RED BLOOD COUNT 4.47 10^6/uL (4.00-5.40); WHITE BLOOD COUNT 7.9 10^3/uL (4.0-10.0)
[2020-06-20 12:09] LABS: ERYTHROCYTE SEDIMENTATION RATE 9 mm/hr (0-30)
[2020-06-20 13:38] LABS: ALBUMIN 3.8 GM/DL (3.2-5.2); ALT/SGPT 61 U/L (12-78); BILIRUBIN,TOTAL 0.3 MG/DL (0.2-1.0); BLOOD UREA NITROGEN 22 MG/DL (7-18); CALCIUM LEVEL 9.5 MG/DL (8.8-10.2); CARBON DIOXIDE LEVEL 29 MEQ/L (21-32); CHLORIDE LEVEL 106 MEQ/L (98-107); FREE T4 1.04 NG/DL (0.76-1.46); GLOMERULAR FILTRATION RATE > 60.0 (>32); GLUCOSE, FASTING 91 MG/DL (70-100); POTASSIUM SERUM 4.5 MEQ/L (3.5-5.1); SODIUM LEVEL 141 MEQ/L (136-145); TOTAL PROTEIN 7.3 GM/DL (6.4-8.2)
== END ==
LOC: M SFHCCLAY 06:50
PROVIDERS: ATTEND Family Medicine
DX: R63.4 Abnormal weight loss (principal); I25.10 Atherosclerotic heart disease of native coronary artery without angina pectoris; E78.00 Pure hypercholesterolemia, unspecified

== ENCOUNTER → 2020-08-01 | Outpatient (REF) | payer MEDICARE, OTHER ==
[2020-08-01 11:55] LABS: PLATELET COUNT, AUTOMATED 356 10^3/uL (150-450)
[2020-08-01 12:13] LABS: INR 0.92; PROTHROMBIN TIME 12.5 SECONDS (12.5-14.3)
[2020-08-01 12:14] LABS: PARTIAL THROMBOPLASTIN TIME 29.2 SECONDS (24.2-38.5)
== END ==
LOC: M LABDRAWC 11:10
PROVIDERS: ATTEND Physician Assistant
DX: M47.817 Spondylosis without myelopathy or radiculopathy, lumbosacral region (principal); Z51.81 Encounter for therapeutic drug level monitoring

== ENCOUNTER → 2021-02-15 | Outpatient (REF) | payer MEDICARE, OTHER ==
[2021-02-15 12:25] LABS: FREE T4 0.94 NG/DL (0.76-1.46); VITAMIN B12 LEVEL 282 PG/ML (247-911)
== END ==
LOC: M SFHCCLAY 09:08
PROVIDERS: ATTEND Family Medicine
DX: G31.84 Mild cognitive impairment of uncertain or unknown etiology (principal)

== ENCOUNTER → 2021-02-21 | Outpatient (CLI) | payer MEDICARE, OTHER ==
[~2021-02-21] MED LIST changes: +ACET-897 PO; +ASPI-161 PO; +PARO10TA3 PO
== END ==
LOC: M WUC 12:05
PROVIDERS: ATTEND Physician Assistant
DX: M19.041 Primary osteoarthritis, right hand (principal); Z87.828 Personal history of other (healed) physical injury and trauma

== ENCOUNTER → 2021-03-01 | Outpatient (CLI) | payer MEDICARE, OTHER ==
[~2021-03-01] MED LIST changes: -ACET-897 PO; -ASPI-161 PO; -PARO10TA3 PO
--- NOTE | 2021-03-01 14:58 | REPVR ---
PROCEDURE INFORMATION: Exam: MR Head Without Contrast Exam date and time: 03/01/2021 12:34 PM Age: 80 years old Clinical indication: Cerebral degeneration; Cognitive impairment; Additional info: Mild cognitive impariment TECHNIQUE: Imaging protocol: MR of the head without contrast. COMPARISON: No relevant prior studies available. FINDINGS: Brain: There is moderate patchy increased T2 signal intensity within the bilateral cerebral periventricular white matter, consistent with chronic microvascular ischemic changes. There are multiple small focal areas of chronic ischemia in bilateral frontal, parietal and periatrial white matter. Chronic ischemic changes/lacunar infarctions are seen in bilateral basal ganglia. Chronic ischemic changes are seen in the nellie. There is no abnormal diffusion weighted signal intensity to suggest an acute ischemic event. There is mild diffuse cerebral atrophy present, consistent with this patient's age. Cerebral ventricles: The ventricular system demonstrates mild diffuse compensatory enlargement. Bones/joints: Unremarkable. Paranasal sinuses: Normal as visualized. No acute sinusitis. Mastoid air cells: Normal as visualized. No mastoid effusion. Orbital cavity: Unremarkable. Soft tissues: Unremarkable. IMPRESSION: 1. No acute infarction, masses or hemorrhage is seen. No acute intracranial abnormality is identified. 2. Diffuse age-related cerebral atrophy and moderate chronic microvascular white matter ischemic changes, without evidence of an acute intracranial abnormality. Electronically signed by: Oscar Olivarez On 03/01/2021 14:57:52 PM
== END ==
LOC: M RAD 11:44
PROVIDERS: ATTEND Family Medicine
DX: G31.89 Other specified degenerative diseases of nervous system (principal)

== ENCOUNTER 2021-04-12 09:54 | Inpatient (IN) | payer MEDICARE, OTHER ==
[~2021-04-12] VITALS: Ht 157.5 cm; Wt 52.7 kg
[2021-04-12] MEDS ORDERED: BOOSTRIX/ADACEL VACCINE (DIPHTH/PERTUSS/ACELL/TETANUS) 0.5ML SYR IM ONE (10:15)
--- NOTE | 2021-04-12 10:31 | REPVR ---
PROCEDURE INFORMATION: Exam: CT Head Without Contrast Exam date and time: 04/12/2021 10:23 AM Age: 81 years old Clinical indication: Injury or trauma; Fall; Blunt trauma (contusions or hematomas) TECHNIQUE: Imaging protocol: Computed tomography of the head without contrast. Radiation optimization: All CT scans at this facility use at least one of these dose optimization techniques: automated exposure control; mA and/or kV adjustment per patient size (includes targeted exams where dose is matched to clinical indication); or iterative reconstruction. COMPARISON: MRI-Brain without Contrast 03/01/2021 12:13 PM FINDINGS: Brain: There is no acute intracranial hemorrhage or mass effect. Moderate diffuse volume loss is within the range of normal for patient age. There are small vessel ischemic changes within the periventricular and subcortical white matter, but the normal muse-white matter delineation is maintained. Cerebral ventricles: Prominence of the ventricular system is commensurate with volume loss. Paranasal sinuses: Visualized sinuses are unremarkable. No fluid levels. Mastoid air cells: Visualized mastoid air cells are well aerated. Bones/joints: Unremarkable. No acute fracture. Soft tissues: There is right parietal soft tissue injury, with hematoma formation. IMPRESSION: No acute intracranial hemorrhage or calvarial fracture. Soft tissue injury. Electronically signed by: Eli Romo On 04/12/2021 10:31:30 AM
--- NOTE | 2021-04-12 10:38 | REPVR ---
PROCEDURE INFORMATION: Exam: CT Cervical Spine Without Contrast Exam date and time: 04/12/2021 10:23 AM Age: 81 years old Clinical indication: Injury or trauma; Fall; Blunt trauma TECHNIQUE: Imaging protocol: Computed tomography images of the cervical spine without contrast. Radiation optimization: All CT scans at this facility use at least one of these dose optimization techniques: automated exposure control; mA and/or kV adjustment per patient size (includes targeted exams where dose is matched to clinical indication); or iterative reconstruction. COMPARISON: CR SPINE CERVICAL COMPL 04/20/2015 11:28 AM FINDINGS: Bones/joints: There is straightening of the normal cervical lordosis. No acute fracture. Normal alignment. Discs/Spinal canal/Neural foramina: There is multilevel severe intervertebral disc space loss at C3/4, C4/5, C5/6 and C6/7. There is multilevel facet hypertrophy. Larynx: There is polypoid soft tissue thickening of the epiglottis. There is suspected right-sided vocal cord paralysis, with medial displacement of the right aryepiglottic fold and right vocal fold. Lungs: There is biapical scarring. Soft tissues: Unremarkable. IMPRESSION: 1. No acute fracture. 2. Polypoid mucosal thickening of the epiglottis. Direct inspection by ENT is recommended to exclude neoplasm. 3. 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 Clinical correlation is recommended. Electronically signed by: Eli Romo On 04/12/2021 10:38:13 AM
--- NOTE | 2021-04-12 11:14 | REP ---
INDICATION: fall. COMPARISON: None. TECHNIQUE: AP view pelvis. FINDINGS: Study is submitted for interpretation at 10:59 a.m. for reasons unknown to me. There is no evidence of acute fracture or dislocation. There is narrowing and sclerosis at the pubic symphysis. Phleboliths and vascular calcifications are noted in the pelvis. IMPRESSION: No acute fracture or dislocation. <Electronically signed by Fausto Chung > 04/12/21 [id number]
--- NOTE | 2021-04-12 11:15 | REP ---
INDICATION: fall. COMPARISON: None. TECHNIQUE: AP and frogleg right hip. FINDINGS: Study is submitted for interpretation 10:59 a.m. for reasons unknown to me. There is no evidence of acute fracture, dislocation or intrinsic bone disease. There are mild degenerative changes at the right hip joint. There are vascular calcifications in the adjacent soft tissues. IMPRESSION: No acute fracture or dislocation. <Electronically signed by Fausto Chung > 04/12/21 [id number]
--- NOTE | 2021-04-12 11:15 | REP ---
INDICATION: fall. COMPARISON: Comparison chest x-ray May 04, 2020. TECHNIQUE: AP chest x-ray, single view. FINDINGS: There is a mild S-shaped thoracic and lumbar scoliosis unchanged. Monitoring electrodes are seen. The lungs are well inflated and clear. The pleural angles are sharp. Heart size is normal. There is diffuse osteopenia. No rib or other fracture is apparent. IMPRESSION: Diffuse osteopenia and scoliosis. Otherwise no acute disease. <Electronically signed by Franky Fregoso > 04/12/21 1111
--- NOTE | 2021-04-12 11:16 | REP ---
INDICATION: fall COMPARISON: None. TECHNIQUE: AP and lateral right lower leg. FINDINGS: There is no evidence of acute fracture, dislocation, or intrinsic bone disease.Total knee prosthesis is noted in good position. There are diffuse vascular calcifications. IMPRESSION: No fracture or dislocation. <Electronically signed by Fausto Chung > 04/12/21 111
--- NOTE | 2021-04-12 11:16 | REP ---
INDICATION: fall. COMPARISON: None. TECHNIQUE: AP and lateral views of the mid and distal femur. FINDINGS: AP and lateral views of the right femur demonstrate diffuse osteopenia and extensive vascular calcification. There is a right knee arthroplasty in position. No fracture or subluxation is seen. No opaque foreign body noted. IMPRESSION: Status post right knee arthroplasty. Vascular calcification and osteoporosis. No fracture seen on these views. <Electronically signed by Franky Fregoso > 04/12/21 [id number]
[2021-04-12 11:19] LABS: BASO # 0.1 10^3/uL (0.0-0.2); BASO % 0.5 % (0.0-1.0); EOS # 0.1 10^3/uL (0.0-0.5); EOS % 0.8 % (0.0-3.0); HEMATOCRIT 42.1 % (36.0-47.0); HEMOGLOBIN 13.5 g/dl (12.0-15.5); LYMPH # 1.4 10^3/uL (1.5-5.0); LYMPH % 12.9 % (24.0-44.0); MEAN CORPUSCULAR HEMOGLOBIN 31.1 pg (27.0-33.0); MEAN CORPUSCULAR HGB CONC 32.1 g/dl (32.0-36.5); MONO # 0.8 10^3/uL (0.0-0.8); MONO % 7.7 % (2.0-8.0); NEUTROPHILS # 8.5 10^3/uL (1.5-8.5); NEUTROPHILS % 77.5 % (36.0-66.0); PLATELET COUNT, AUTOMATED 310 10^3/uL (150-450); RED BLOOD COUNT 4.34 10^6/uL (4.00-5.40); WHITE BLOOD COUNT 10.9 10^3/uL (4.0-10.0)
[2021-04-12 12:20] LABS: BLOOD UREA NITROGEN 18 MG/DL (7-18); CALCIUM LEVEL 8.6 MG/DL (8.8-10.2); CARBON DIOXIDE LEVEL 28 MEQ/L (21-32); CHLORIDE LEVEL 109 MEQ/L (98-107); CK-MB VALUE MASS 115.2 NG/ML (<3.6); CPK CREATINE PHOSPHOKINASE 2818 U/L (26-192); CREATININE FOR GFR 0.41 MG/DL (0.55-1.30); GLOMERULAR FILTRATION RATE > 60.0 (>32); GLUCOSE, FASTING 98 MG/DL (70-100); MB/CK RELATIVE INDEX 4.09 (< OR =4); POTASSIUM SERUM 5.3 MEQ/L (3.5-5.1); SODIUM LEVEL 140 MEQ/L (136-145); TROPONIN I < 0.02 NG/ML (< 0.10)
[2021-04-12] MEDS ORDERED: NS 1,000 ML IV ONE (13:55)
[2021-04-12] MEDS ORDERED: LIDOCAINE 2% 5ML JELLY UROJET TOP ONE (14:10)
[2021-04-12] MEDS: NS 1,000 ML IV SCH ×2 (14:30→20:53)
[2021-04-12] MEDS ORDERED: MAALOX 30 ML SUSP *UDC PO PRN (14:30)
[2021-04-12] MEDS ORDERED: MOM 30ML SUSPENSION UDC PO PRN (14:30)
[2021-04-12] MEDS ORDERED: PARO10TA3 PO (14:40)
[2021-04-12] MEDS ORDERED: ASPI-161 PO (14:40)
[2021-04-12] MEDS ORDERED: ACET-897 PO (14:40)
[2021-04-12] MEDS ORDERED: HOME MED LIST COMPLETE! XX SCH (14:45)
--- NOTE | 2021-04-12 15:14 | HPEPDOC ---
[facility] Medical History & Physical Date of Admission Apr 12, 2021 Date of Service: Apr 12, 2021 Primary Care Physician: Raj Rodríguez MD Attending Physician: LINDSEY HARDEN DO History and Physical CHIEF COMPLAINT: Fall with head injury HISTORY OF PRESENT ILLNESS: Patient is an 81-year-old female who presented to the emergency department via EMS earlier today, 04/12/2021, after falling backwards down stairs on asphalt. Patient states that she was trying to walk up a flight of stairs into a house where she was about to get her hair done when she missed the pole with her arms. Patient states that it was a very large step and she began to fall backwards and fell hitting her head. Patient hit the right side of the back of her head and her chest on the ground. Patient denied losing any consciousness. Patient states that she has been having some weakness and some falls at home prior to this. Patient had recently seen her primary care provider in the beginning of February where her son expressed concerns about her mobility and cognitive functioning at this time. Patient only complains of a headache. Patient did have an episode of dizziness while in the emergency department and the emergency department provider did an NIH stroke scale which was 0. Patient says that the dizziness has relented by the time I come into the room to talk with her. Patient says that she did not have any dizziness, lightheadedness, or other symptom prior to the fall. Patient remembers all the events leading up to and after the fall. Patient does not have any other complaints at this time. PAST MEDICAL HISTORY: 1. Myocardial infarction 1997. 2. Shingles thousand 14. 3. Diverticulitis of the colon. 4. Left wrist fracture thousand 17 5. Arthritis in right knee. PAST SURGICAL HISTORY: 1. Cholecystectomy 1995. 2. Appendectomy 1955. 3. Cardiac stents in 1997 and 1999. 4. Back operation in 1983 5. Left total knee replacement 2014 and right total knee replacement 2019 SOCIAL HISTORY: Patient currently lives alone at home but says her son lives in the house across the street. Patient denies smoking or illicit drug use and says she has 1 glass of wine at night. FAMILY HISTORY: Father was from a myocardial infarction, mother of myocardial infarction ALLERGIES: Please see below. REVIEW OF SYSTEMS: General: Patient denies fevers HEENT: Patient reports a headache Cardiovascular: Patient denies chest pain Respiratory: Patient denies shortness of breath, cough GI: Patient denies abdominal pain, nausea, vomiting, diarrhea : Patient denies increased frequency or pain with urination Extremities: Patient denies swelling or pain in extremities Neurological: Patient denies numbness or tingling in legs Skin: Patient denies any new rashes or lesions. Hematologic: Patient denies any easy bruising. Lymphatic: Patient denies any lumps lumps or bumps in neck, axilla, or groin HOME MEDICATIONS: Please see below. PHYSICAL EXAMINATION: VITAL SIGNS: Temperature 96.5, pulse 79, respiratory rate 18, blood pressure 127/67, pulse oximetry 96% on room air. General: Alert and oriented female patient who was laying in bed when I walked in the room. Patient was able to sit up under her own power. Patient did not appear to be in any acute distress. HEENT: Normocephalic, bruising some swelling on the vertex of the head on the right side, no raccoon eyes or nolan signs, moist mucous membranes. Neck: No lymphadenopathy or thyromegaly, or tenderness in the cervical spine Cardiac: Regular rate and rhythm, no murmurs, normal S1, normal S2 Pulm: Clear to auscultation bilaterally. No wheezes, rhonchi, rales Abd: Nondistended, nontender to palpation, normal bowel sounds Ext: No edema bilateral lower extremities Neuro: [id number] testing within normal limits bilaterally. Patient had equal strength in upper and lower extremities bilaterally. Patient reported sensation to light touch in upper and lower extremities bilaterally. Cranial nerves III through XII intact bilaterally Skin: Skin of the head, neck, upper and lower extremities, back was examined not show any evidence of rash or wounds LABORATORY DATA: See below. IMAGING: CT of the cervical spine without contrast from 2020 is reported to show no acute fracture. Polypoid mucosal thickening in the epiglottis. Direct inspection by ENT is recommended to exclude neoplasm. 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 Clinical correlation is recommended. Chest x-ray performed on 04/12/2021 is reported to show diffuse osteopenia and scoliosis. Otherwise no acute disease. Right femur x-ray performed on 04/12/2021 is reported to show status post right knee arthroplasty. Vascular calcification osteoporosis. No fracture seen on these views. Head CT performed without contrast on 04/12/2021 is reported to show no acute intracranial hemorrhage or calvarial fracture. Soft tissue injury. Right hip x-ray performed on 04/12/2021 is where to show no acute fracture dis location. Pelvis x-ray performed on 04/12/2021 is reported to show no acute fracture dislocation. Right tibia/fibular x-ray performed on 04/12/2001 is reported to show no fracture dislocation. MICROBIOLOGY: Please see below. ASSESSMENT: 81-year-old female who presented to the emergency department after a fall walking up stairs and striking her head was found to have a mildly elevated creatinine kinase. PLAN: 1. Fall with head injury. Patient has a large bruise on the back of her head and has a concussion based on her symptoms. Patient will have every 4 neurochecks. No heparin will be given for DVT prophylaxis due to the possibility of a bleed. If the patient's neurochecks change, CT the head can be reordered at that time. We will continue to monitor the patient and try to keep sensory information to the minimal by lowering the lights and trying to avoid loud noises. We will continue to monitor patient. 2. Mild rhabdomyolysis. Patient's creatinine kinase is mildly elevated which is most likely secondary to the fall. Patient will be given a bolus in the emergency department and will be given a liter of normal saline at 100 cc/h after that and we will recheck in the morning. Patient does not have any signs of kidney injury or myoglobinuria at this time. 3. Mass found on epiglottis. There was a mass found on the CT of the cervical spine per the radiology report. If this causes a problem inpatient, ENT will be consulted if not, patient can follow-up with ENT outpatient. 4. Coronary artery disease. Continue patient's home medications. 5. Recurrent falls. Patient is fallen multiple times apparently there is a concern for her ability to take care of her self based on notes from primary care office. Patient did have an MRI of her brain in February 2021 which was reported to show no acute infarction, masses, or hemorrhage is seen, no acute intracranial abnormality identified. Diffuse age-related cerebral atrophy and moderate chronic microvascular white matter ischemic changes, without evidence of acute intracranial abnormality. 6. DVT prophylaxis teds and sequentials due to above 7. CODE STATUS: Patient would like to be DNR/DNI. Patient states that she filled out paperwork at her primary care office however, I was unable to track this down. I did go back and speak with the patient. Patient states that if her heart were to stop beating that she would not want CPR performed. Patient expresses the understanding that if her heart stops beating and CPR is not done, then she will . Patient understands this and would like to be DO NOT RE SUSCITATE. Patient also does not want a breathing tube. I did explain what intubation and mechanical ventilation entailed including a breathing tube being placed in the trachea and a machine breathing for her and patient states that she does not want this. Patient will also be made DO NOT INTUBATE at this time. Disposition: Patient will be admitted to the medical surgical floor and I do expect greater than 2 midnights. Vital Signs Vital Signs Date Time Temp Pulse Resp B/P (MAP) Pulse Ox O2 Delivery O2 Flow Rate FiO2 04/12/21 13:30 79 127/67 (87) 96 04/12/21 10:15 Room Air 04/12/21 10:08 96.5 18 Laboratory Data Labs 24H Laboratory Tests 2 04/12/21 10:25: Immature Granulocyte % (Auto) 0.6, Neutrophils (%) (Auto) 77.5H, Lymphocytes (%) (Auto) 12.9L, Monocytes (%) (Auto) 7.7, Eosinophils (%) (Auto) 0.8, Basophils (%) (Auto) 0.5, Neutrophils # (Auto) 8.5, Lymphocytes # (Auto) 1.4L, Monocytes # (Auto) 0.8, Eosinophils # (Auto) 0.1, Basophils # (Auto) 0.1, Nucleated Red Blood Cells % (auto) 0.0, Anion Gap 3L, Glomerular Filtration Rate > 60.0, Calcium Level 8.6L, Total Creatine Kinase 2818H, Creatine Kinase MB 115.2H, Creatine Kinase MB Relative Index 4.09H, Troponin I < 0.02 04/12/21 13:50: Urine Color YELLOW, Urine Appearance CLEAR, Urine pH 5.0, Urine Specific Spur 1.013, Urine Protein NEGATIVE, Urine Glucose (UA) NEGATIVE, Urine Ketones TRACEH, Urine Blood NEGATIVE, Urine Nitrite NEGATIVE, Urine Bilirubin NEGATIVE, Urine Urobilinogen 0.2, Urine Leukocyte Esterase NEGATIVE, Urine WBC (Auto) 0, Urine RBC (Auto) 0, Urine Hyaline Casts (Auto) 0, Urine Bacteria (Auto) NEGATIVE, Urine Squamous Epithelial Cells 0, Urine Mucus (Auto) SMALL, Urine Sperm (Auto) 04/12/21 14:23: CBC/BMP Laboratory Tests 04/12/21 10:25 Home Medications Scheduled Aspirin (Aspirin EC) 81 Mg Tablet.dr, 81 MG PO DAILY C,E,Zinc,Copper 24/Om3/Lut/My (Ocuvite Adult 50 Plus Softgel) 1 Cap Cap, 1 CAP PO DAILY Cholecalciferol (Vitamin D3) (Vitamin D3) 1,000 Unit Tablet, 1,000 UNITS PO DAILY Ketotifen Fumarate (Alaway) 0.025% 10ML Drops, 1 DROP OU BID Paroxetine HCl (Paroxetine) 10 Mg Tablet, 10 MG PO DAILY Pravastatin Sodium (Pravastatin Sodium) 40 Mg Tab, 40 MG PO DAILY Scheduled PRN Acetaminophen (Tylenol Extra Strength) 500 Mg Tablet, 500 MG PO DAILY PRN for PAIN LEVEL 1-4 Allergies Coded Allergies: ticlopidine (Verified Adverse Reaction, Unknown, INCREASED LIVER FUNCTION TEST, 05/11/20) A-FIB/CHADSVASC A-FIB History Current/History of A-Fib/PAF?: No LINDSEY HARDEN DO Apr 12, 2021 15:14
[2021-04-12 15:18] LABS: RSV AMPLIFICATION NEGATIVE (NEGATIVE)
[2021-04-12] MEDS: ACETAMINOPHEN TAB 650MG DOSE (2X325MG) PO PRN (16:53)
--- NOTE | 2021-04-12 19:36 | ECGEPIP ---
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
[2021-04-12] MEDS ORDERED: ONDANSETRON 4MG/2ML VIAL As Ordered ONE (19:55)
[2021-04-12] MEDS: ONDANSETRON 4MG/2ML VIAL IV PRN (20:00)
[2021-04-12 20:30] VITALS: BP 125/69
[2021-04-13] MEDS: ACETAMINOPHEN TAB 650MG DOSE (2X325MG) PO PRN ×3 (01:02→21:39)
[2021-04-13 06:00] VITALS: BP 118/62
[2021-04-13 06:38] LABS: HEMATOCRIT 38.8 % (36.0-47.0); HEMOGLOBIN 12.5 g/dl (12.0-15.5); MEAN CORPUSCULAR HEMOGLOBIN 31.1 pg (27.0-33.0); MEAN CORPUSCULAR HGB CONC 32.2 g/dl (32.0-36.5); MEAN CORPUSCULAR VOLUME 96.5 fl (80.0-96.0); PLATELET COUNT, AUTOMATED 293 10^3/uL (150-450); RED BLOOD COUNT 4.02 10^6/uL (4.00-5.40); WHITE BLOOD COUNT 7.4 10^3/uL (4.0-10.0)
[2021-04-13 07:23] LABS: BLOOD UREA NITROGEN 12 MG/DL (7-18); CALCIUM LEVEL 8.4 MG/DL (8.8-10.2); CARBON DIOXIDE LEVEL 29 MEQ/L (21-32); CHLORIDE LEVEL 111 MEQ/L (98-107); CPK CREATINE PHOSPHOKINASE 2039 U/L (26-192); CREATININE FOR GFR 0.34 MG/DL (0.55-1.30); GLOMERULAR FILTRATION RATE > 60.0 (>32); GLUCOSE, FASTING 96 MG/DL (70-100); MAGNESIUM LEVEL 2.1 MG/DL (1.8-2.4); POTASSIUM SERUM 4.1 MEQ/L (3.5-5.1); SODIUM LEVEL 143 MEQ/L (136-145)
[2021-04-13] MEDS: ONDANSETRON 4MG/2ML VIAL IV PRN ×2 (08:13→20:39)
[2021-04-13] MEDS ORDERED: MECLIZINE 12.5 MG TAB PO PRN (09:40)
[2021-04-13] MEDS: VITAMIN D 1,000 INTERNATIONAL UNITS TABLET PO SCH (10:31)
[2021-04-13] MEDS: PRAVASTATIN 20 MG TAB PO SCH (10:31)
[2021-04-13] MEDS: OCUVITE 1 TAB PO SCH (10:31)
[2021-04-13] MEDS: ASPIRIN 81MG ENTERIC TABLET PO SCH (10:31)
[2021-04-13] MEDS: PARoxetine 10MG TABLET PO SCH (10:32)
[2021-04-13] MEDS: SODIUM CHLORIDE NASAL 0.65% SPRAY BTL (OCEAN) SCH ×3 (10:35→20:39)
--- NOTE | 2021-04-13 12:46 | IPNPDOC ---
Text Note Date of Service The patient was seen on 04/13/21. NOTE Subjective: Patient is an 81-year-old female present to the emergency department via EMS on 1020. After falling backwards down stairs and hitting her head on asphalt. Patient is complaining of a mild headache and some dizziness while she is walking around but is otherwise feeling well. Patient describes it as the room is spinning when she is walking around. Patient states that she did well overnight and does not have any complaints at this time. Review of systems: General: Patient denies fevers HEENT: Patient denies headaches Cardiovascular: Patient denies chest pain Respiratory: Patient denies shortness of breath, cough GI: Patient denies abdominal pain, nausea, vomiting, diarrhea : Patient denies increased frequency or pain with urination Extremities: Patient denies swelling or pain in extremities Neurological: Patient denies numbness or tingling in legs Physical exam: Vitals: See below General: Alert and oriented female patient who was laying in bed when I walked in. Patient did not appear to be in any acute distress. HEENT: Normocephalic, small area of swelling on the vertex of the head to the right, moist mucous membranes. Neck: No lymphadenopathy or thyromegaly Cardiac: Regular rate and rhythm, no murmurs, normal S1, normal S2 Pulm: Clear to auscultation bilaterally. No wheezes, rhonchi, rales Abd: Nondistended, nontender to palpation, normal bowel sounds Ext: No edema bilateral lower extremities Labs: See below Imaging: No new imaging has been performed. Assessment/plan: 81-year-old female sent to the emergency department after falling walking up a flight of stairs and striking the back of her head on asphalt who was found to h ave a mildly elevated creatinine kinase with dizziness. 1. Fall with head injury. Patient does have a large bruise in the back of her head and a concussion based on her symptoms. Neurochecks been negative so far. We will continue to monitor the patient. If the patient continues to have dizziness into tomorrow, patient will have repeat CT of the head otherwise the patient is doing well can hopefully be discharged tomorrow with postconcussive physical therapy. 2. Mild rhabdomyolysis. This is improved. We will give the patient 1 more liter of fluid at this time and will continue to monitor. 3. Mass found on epiglottis. Patient had a mass found on CT of cervical spine per radiology report. If this causes a problem inpatient, ENT be consulted if not, patient can follow-up with ENT outpatient. 4. Coronary artery disease. Continue home medications. 5. Recurrent falls. I spoke with the patient's son who lives next to his mother who states that the patient will be able to take care of herself at home like she has been. Patient does have issues walking around but as long as she uses a walker, she is able to walk around and take care of herself. Patient can be discharged hopefully in the next 24 to 48 hours home. DVT Prophylaxis: Teds and sequentials Disposition: Pending improvement in dizziness. VS,Roccobone, I+O VS, Fishbone, I+O Laboratory Tests 04/13/21 06:02 Vital Signs Date Time Temp Pulse Resp B/P (MAP) Pulse Ox O2 Delivery O2 Flow Rate FiO2 04/13/21 06:00 97.7 74 15 118/62 (80) 95 Room Air I&O- Last 24 Hours up to 6 AM 04/13/21 06:00 Intake Total 720 ml Output Total 260 ml Balance 460 ml LINDSEY HARDEN DO Apr 13, 2021 12:46
[2021-04-13 14:00] VITALS: BP 147/87
[2021-04-13 21:15] VITALS: BP 124/67
[2021-04-14 04:57] VITALS: BP 157/70
[2021-04-14 08:15] LABS: HEMATOCRIT 41.9 % (36.0-47.0); HEMOGLOBIN 13.6 g/dl (12.0-15.5); MEAN CORPUSCULAR HGB CONC 32.5 g/dl (32.0-36.5); MEAN CORPUSCULAR VOLUME 95.4 fl (80.0-96.0); PLATELET COUNT, AUTOMATED 317 10^3/uL (150-450); RED BLOOD COUNT 4.39 10^6/uL (4.00-5.40); WHITE BLOOD COUNT 9.6 10^3/uL (4.0-10.0)
[2021-04-14] MEDS: ASPIRIN 81MG ENTERIC TABLET PO SCH (08:32)
[2021-04-14] MEDS: OCUVITE 1 TAB PO SCH (08:32)
[2021-04-14] MEDS: PRAVASTATIN 20 MG TAB PO SCH (08:33)
[2021-04-14] MEDS: PARoxetine 10MG TABLET PO SCH (08:33)
[2021-04-14] MEDS: VITAMIN D 1,000 INTERNATIONAL UNITS TABLET PO SCH (08:33)
[2021-04-14] MEDS: ACETAMINOPHEN TAB 650MG DOSE (2X325MG) PO PRN (08:34)
[2021-04-14] MEDS: SODIUM CHLORIDE NASAL 0.65% SPRAY BTL (OCEAN) SCH (08:36)
[2021-04-14 08:39] LABS: BLOOD UREA NITROGEN 7 MG/DL (7-18); CALCIUM LEVEL 8.5 MG/DL (8.8-10.2); CARBON DIOXIDE LEVEL 28 MEQ/L (21-32); CHLORIDE LEVEL 106 MEQ/L (98-107); CREATININE FOR GFR 0.24 MG/DL (0.55-1.30); GLOMERULAR FILTRATION RATE > 60.0 (>32); GLUCOSE, FASTING 99 MG/DL (70-100); MAGNESIUM LEVEL 1.9 MG/DL (1.8-2.4); POTASSIUM SERUM 3.7 MEQ/L (3.5-5.1); SODIUM LEVEL 140 MEQ/L (136-145)
--- NOTE | 2021-04-14 11:30 | DS.PDOC ---
Discharge Summary General Date of Admission Apr 12, 2021 at 14:26 Date of Discharge 04/14/2021 Primary Care Physician: Raj Rodríguez MD Attending Physician: LINDSEY HARDEN DO Discharge Summary PROCEDURES PERFORMED DURING STAY: None. ADMITTING DIAGNOSES: 1. Fall with head injury. 2. Mild rhabdomyolysis 3. Mass found on epiglottis 4. Coronary artery disease 5. Recurrent falls DISCHARGE DIAGNOSES: 1. Fall with head injury, improved. 2. Concussion 3. Mild rhabdomyolysis, improved 4. Mass found on epiglottis 5. Coronary artery disease 6. Recurrent falls COMPLICATIONS/CHIEF COMPLAINT: Concussion,Rhabdomyolysis. HISTORY OF PRESENT ILLNESS: Patient is an 81-year-old female present to the emergency department via EMS on 1020 after falling backwards down a stair onto asphalt. Patient states that she was trying to walk up a flight of stairs into her house where she is about to get her hair done when she missed the pole with her arms and fell backwards. Patient denied losing any consciousness and did not feel dizzy or lightheaded prior to the fall. Patient remember all of the events from the fall through to arriving at the hospital and speaking with me. Patient only complains of a headache and had an episode of dizziness while in the emergency department. Emergency department fractured NIH stroke scale which was 0. Patient's dizziness has relented and when she is not moving she is not dizzy. Patient does have some pain in the back of her head but is otherwise feeling well at this time. HOSPITAL COURSE: Patient did well throughout her hospitalization only complained of a mild headache and some dizziness when moving around. Patient working physical therapy and the dizziness not affect her in any way. Patient had a CT of the cervical spine which showed a mass in the epiglottis. This was not causing the patient any problems acutely in the hospital and because of that, ENT was not consulted. Patient should follow up outpatient for this. If the patient continues to have dizziness, she can be seen by a postconcussive phys ical therapist. Otherwise, patient is doing well and wanted to go home on 04/14/2021. Patient's rhabdomyolysis did improve. Patient never had an acute kidney injury or myoglobinuria because of this. Patient will need continued monitoring outpatient but is ready for discharge at this time. Patient was discharged home on 04/14/2021. DISCHARGE MEDICATIONS: Please see below. ALLERGIES: Please see below. PHYSICAL EXAMINATION ON DISCHARGE: VITAL SIGNS: Please see below. General: Alert and oriented female patient who was sitting up in bed when I walked in the room. Patient not appear to be in any acute distress. HEENT: Normocephalic, atraumatic, moist mucous membranes. Neck: No lymphadenopathy or thyromegaly Cardiac: Regular rate and rhythm, no murmurs, normal S1, normal S2 Pulm: Clear to auscultation bilaterally. No wheezes, rhonchi, rales Abd: Nondistended, nontender to palpation, normal bowel sounds Ext: No edema bilateral lower extremities Neuro: Patient had equal strength in upper and lower extremities bilaterally. Patient reported sensation to light touch in upper and lower extremities bilaterally. Cranial nerves III through XII intact bilaterally LABORATORY DATA: Please see below. IMAGING: CT of the cervical spine without contrast from 2020 is reported to show no acute fracture. Polypoid mucosal thickening in the epiglottis. Direct inspection by ENT is recommended to exclude neoplasm. 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 Clinical correlation is recommended. Chest x-ray performed on 04/12/2021 is reported to show diffuse osteopenia and sc oliosis. Otherwise no acute disease. Right femur x-ray performed on 04/12/2021 is reported to show status post right knee arthroplasty. Vascular calcification osteoporosis. No fracture seen on these views. Head CT performed without contrast on 04/12/2021 is reported to show no acute intracranial hemorrhage or calvarial fracture. Soft tissue injury. Right hip x-ray performed on 04/12/2021 is where to show no acute fracture dislocation. Pelvis x-ray performed on 04/12/2021 is reported to show no acute fracture dislocation. Right tibia/fibular x-ray performed on 04/12/2001 is reported to show no fracture dislocation. PROGNOSIS: Good ACTIVITY: As tolerated. DIET: No added salt DISCHARGE PLAN: Discharge home DISPOSITION: . DISCHARGE INSTRUCTIONS: 1. Follow-up with your primary care provider within 5 to 7 days of discharge. 2. Continue to use your walker while walking around her house 3. Follow-up with your primary care provider about an ENT referral due to the mass that was found on the CT of the cervical spine 4. If you continue to have postconcussive symptoms, ask your primary care provider for a referral to a postconcussive physical therapist 5. Return the emergency department if symptoms worsen. ITEMS TO FOLLOWUP ON ON OUTPATIENT: 1. ENT referral for mass on epiglottis. DISCHARGE CONDITION: Stable. TIME SPENT ON DISCHARGE: 35 minutes. Vital Signs/I&Os Vital Signs Date Time Temp Pulse Resp B/P (MAP) Pulse Ox O2 Delivery O2 Flow Rate FiO2 04/14/21 04:57 97.2 90 20 157/70 (99) 96 Room Air I&O- Last 24 Hours up to 6 AM 04/14/21 06:00 Intake Total 690 ml Output Total 1100 ml Balance -410 ml Laboratory Data Labs 24H Laboratory Tests 2 04/14/21 07:35: Nucleated Red Blood Cells % (auto) 0.0, Anion Gap 6L, Glomerular Filtration Rate > 60.0, Calcium Level 8.5L, Magnesium Level 1.9, Total Creatine Kinase 2656H CBC/BMP Laboratory Tests 04/14/21 07:35 Discharge Medications Scheduled Aspirin (Aspirin EC) 81 Mg Tablet.dr, 81 MG PO DAILY, (Reported) C,E,Zinc,Copper 24/Om3/Lut/My (Ocuvite Adult 50 Plus Softgel) 1 Cap Cap, 1 CAP PO DAILY, (Reported) Cholecalciferol (Vitamin D3) (Vitamin D3) 1,000 Unit Tablet, 1,000 UNITS PO DAILY, (Reported) Ketotifen Fumarate (Alaway) 0.025% 10ML Drops, 1 DROP OU BID, (Reported) Paroxetine HCl (Paroxetine) 10 Mg Tablet, 10 MG PO DAILY, (Reported) Pravastatin Sodium (Pravastatin Sodium) 40 Mg Tab, 40 MG PO DAILY, (Reported) Scheduled PRN Acetaminophen (Tylenol Extra Strength) 500 Mg Tablet, 500 MG PO DAILY PRN for PAIN LEVEL 1-4, (Reported) Allergies Coded Allergies: ticlopidine (Verified Adverse Reaction, Unknown, INCREASED LIVER FUNCTION TEST, 05/11/20) LINDSEY HARDEN DO Apr 14, 2021 11:30
== END 2021-04-14 13:15 | disposition home or self-care (01) | DRG 90 ==
LOC: EDBD 09:54 → M ED 09:54 → M ED INP 14:26 → ENRESERV 19:00 → M MS5PR 20:27
PROVIDERS: ADMIT Family Medicine; ATTEND Family Medicine
DX: S06.0X0A Concussion without loss of consciousness, initial encounter (principal); T79.6XXA Traumatic ischemia of muscle, initial encounter; I25.2 Old myocardial infarction; Z90.49 Acquired absence of other specified parts of digestive tract; Z95.5 Presence of coronary angioplasty implant and graft; Z98.1 Arthrodesis status; Z96.653 Presence of artificial knee joint, bilateral; R29.6 Repeated falls; I25.10 Atherosclerotic heart disease of native coronary artery without angina pectoris; D38.0 Neoplasm of uncertain behavior of larynx; Z66 Do not resuscitate; Z79.82 Long term (current) use of aspirin; Z88.8 Allergy status to other drugs, medicaments and biological substances; Z79.899 Other long term (current) drug therapy; Z20.822 Contact with and (suspected) exposure to COVID-19; W10.8XXA Fall (on) (from) other stairs and steps, initial encounter; Y92.9 Unspecified place or not applicable; S20.224A Contusion of middle back wall of thorax, initial encounter

== ENCOUNTER → 2021-04-27 | Outpatient (REF) | payer MEDICARE, OTHER ==
[~2021-04-27] MED LIST changes: +ACET-897 PO; +ASPI-161 PO; +PARO10TA3 PO
[2021-04-28 12:57] LABS: ALBUMIN 3.7 GM/DL (3.2-5.2); ALT/SGPT 184 U/L (12-78); BILIRUBIN,TOTAL 0.3 MG/DL (0.2-1.0); BLOOD UREA NITROGEN 16 MG/DL (7-18); CALCIUM LEVEL 9.4 MG/DL (8.8-10.2); CARBON DIOXIDE LEVEL 28 MEQ/L (21-32); CHLORIDE LEVEL 105 MEQ/L (98-107); CPK CREATINE PHOSPHOKINASE 2528 U/L (26-192); CREATININE FOR GFR 0.44 MG/DL (0.55-1.30); GLOMERULAR FILTRATION RATE > 60.0 (>32); GLUCOSE, FASTING 96 MG/DL (70-100); POTASSIUM SERUM 5.5 MEQ/L (3.5-5.1); SODIUM LEVEL 140 MEQ/L (136-145); TOTAL PROTEIN 6.7 GM/DL (6.4-8.2)
== END ==
LOC: M SFHCCLAY 15:13
PROVIDERS: ATTEND Family Medicine
DX: M62.81 Muscle weakness (generalized) (principal); W19.XXXS Unspecified fall, sequela
CPT/HCPCS: 80053; 82550; 83519; 85652; 90682; 99495; G0008

== ENCOUNTER → 2021-05-11 | Outpatient (REF) | payer MEDICARE, OTHER ==
[2021-05-11 12:18] LABS: BLOOD UREA NITROGEN 19 MG/DL (7-18); CALCIUM LEVEL 9.5 MG/DL (8.8-10.2); CARBON DIOXIDE LEVEL 33 MEQ/L (21-32); CHLORIDE LEVEL 107 MEQ/L (98-107); CPK CREATINE PHOSPHOKINASE 2330 U/L (26-192); CREATININE FOR GFR 0.48 MG/DL (0.55-1.30); GLOMERULAR FILTRATION RATE > 60.0 (>32); GLUCOSE, FASTING 89 MG/DL (70-100); SODIUM LEVEL 142 MEQ/L (136-145)
== END ==
LOC: M SFHCCLAY 07:01
PROVIDERS: ATTEND Family Medicine
DX: M62.82 Rhabdomyolysis (principal)

== ENCOUNTER → 2021-08-02 | Outpatient (CLI) | payer MEDICARE, OTHER ==
--- NOTE | 2021-08-02 12:33 | REP ---
INDICATION: M79.641, RIGHT HAND PAIN. COMPARISON: 02/11/2021 TECHNIQUE: Four views FINDINGS: Once again, there is asymmetric intra digital joint space narrowing particularly affecting the D IP joints of all digits and the interphalangeal joint of the 1st digit. These changes are seen in conjunction with prominent marginal osteophytosis. There is lateral subluxation of the D IP joints of digits 2 through 5 status quo. Since the last exam a fracture involving the distal diaphysis of the 5th metacarpal has developed with mild anterior angulation. Chronic changes are again seen involving the wrist status quo. IMPRESSION: 1. There is an acute fracture involving the distal aspect of the 5th metacarpal. There are some subtle additional changes seen involving the base of the 5th metacarpal. A concomitant proximal fracture cannot be ruled out. Consider a wrist series which might better imaged the area. 2. Advanced chronic changes as described <Electronically signed by Raymond Alfaro > 08/02/21 [id number]
== END ==
LOC: M CLY 12:01
PROVIDERS: ATTEND Family Medicine
DX: M19.041 Primary osteoarthritis, right hand (principal); S62.306A Unspecified fracture of fifth metacarpal bone, right hand, initial encounter for closed fracture; X58.XXXA Exposure to other specified factors, initial encounter; Y92.9 Unspecified place or not applicable; Y93.9 Activity, unspecified; Y99.9 Unspecified external cause status

== ENCOUNTER → 2021-09-21 | Outpatient (REF) | payer MEDICARE, OTHER ==
[2021-09-21 16:36] LABS: ALBUMIN 3.5 GM/DL (3.2-5.2); ALT/SGPT 57 U/L (12-78); BILIRUBIN,TOTAL 0.2 MG/DL (0.2-1.0); BLOOD UREA NITROGEN 18 MG/DL (7-18); CALCIUM LEVEL 9.3 MG/DL (8.8-10.2); CARBON DIOXIDE LEVEL 31 MEQ/L (21-32); CHLORIDE LEVEL 105 MEQ/L (98-107); CHOLESTEROL LEVEL 186 MG/DL (<200); CHOLESTEROL RISK RATIO 2.695 (<5); GLOMERULAR FILTRATION RATE > 60.0 (>32); GLUCOSE, FASTING 88 MG/DL (70-100); HDL CHOLESTEROL 69 MG/DL (>40); LDL CHOLESTEROL 92 MG/DL (<100); NON-HDL-C 117 MG/DL; POTASSIUM SERUM 4.8 MEQ/L (3.5-5.1); SODIUM LEVEL 143 MEQ/L (136-145); TOTAL PROTEIN 7.3 GM/DL (6.4-8.2); TRIGLYCERIDES LEVEL 127 MG/DL (<150)
== END ==
LOC: M SFHCCLAY 10:34
PROVIDERS: ATTEND Family Medicine
DX: M62.81 Muscle weakness (generalized) (principal); I25.10 Atherosclerotic heart disease of native coronary artery without angina pectoris

== ENCOUNTER → 2022-01-18 | Outpatient (CLI) | payer MEDICARE, OTHER ==
[~2022-01-18] MED LIST changes: -D31000TA2 PO; +VITA100093 PO
== END ==
LOC: M CLY 11:35
PROVIDERS: ATTEND Family Medicine
DX: M54.6 Pain in thoracic spine (principal)

== ENCOUNTER → 2022-01-30 | Outpatient (CLI) | payer MEDICARE, OTHER | LOC: M RAD 14:33 | PROVIDERS: ATTEND Family Medicine | DX: S22.009D Unspecified fracture of unspecified thoracic vertebra, subsequent encounter for fracture with routine healing (principal) ==

== ENCOUNTER → 2022-01-30 | Outpatient (CLI) | payer MEDICARE, OTHER | LOC: M RAD 16:15 | PROVIDERS: ATTEND Family Medicine | DX: R93.89 Abnormal findings on diagnostic imaging of other specified body structures (principal) ==

== ENCOUNTER → 2022-05-17 | Outpatient (REF) | payer MEDICARE, OTHER | LOC: M SFHCCLAY 07:31 | PROVIDERS: ATTEND Family Medicine | DX: R74.8 Abnormal levels of other serum enzymes (principal) ==

== ENCOUNTER → 2022-08-09 | Outpatient (CLI) | payer MEDICARE, OTHER | LOC: M CLY 15:19 | PROVIDERS: ATTEND Family Medicine | DX: M33.20 Polymyositis, organ involvement unspecified (principal); S22.32XA Fracture of one rib, left side, initial encounter for closed fracture; I51.7 Cardiomegaly; X58.XXXA Exposure to other specified factors, initial encounter; Y92.9 Unspecified place or not applicable; Y93.9 Activity, unspecified; Y99.9 Unspecified external cause status ==

== ENCOUNTER 2022-09-25 18:34 | Inpatient (IN) | payer MEDICARE, OTHER ==
[~2022-09-25] VITALS: Ht 157.5 cm; Wt 50.9 kg
[2022-09-25] MEDS ORDERED: ONDANSETRON 4MG 2ML VIAL IV ONE (19:15)
[2022-09-25] MEDS ORDERED: MORPHINE 4 MG/ML 1ML VIAL IV ONE (19:15)
[2022-09-25 19:39] LABS: BASO # 0.1 10^3/uL (0.0-0.2); BASO % 0.3 % (0.0-1.0); EOS # 0.1 10^3/uL (0.0-0.5); EOS % 0.5 % (0.0-3.0); HEMOGLOBIN 13.8 g/dl (12.0-15.5); LYMPH # 2.2 10^3/uL (1.5-5.0); LYMPH % 12.2 % (24.0-44.0); MEAN CORPUSCULAR HEMOGLOBIN 30.5 pg (27.0-33.0); MEAN CORPUSCULAR HGB CONC 31.4 g/dl (32.0-36.5); MEAN CORPUSCULAR VOLUME 97.3 fl (80.0-96.0); MONO # 1.1 10^3/uL (0.0-0.8); MONO % 6.2 % (2.0-8.0); NEUTROPHILS # 14.2 10^3/uL (1.5-8.5); NEUTROPHILS % 80.1 % (36.0-66.0); PLATELET COUNT, AUTOMATED 366 10^3/uL (150-450); RED BLOOD COUNT 4.52 10^6/uL (4.00-5.40); WHITE BLOOD COUNT 17.8 10^3/uL (4.0-10.0)
[2022-09-25 20:06] LABS: BLOOD UREA NITROGEN 23 MG/DL (9-23); CARBON DIOXIDE LEVEL 29 MMOL/L (20-31); CHLORIDE LEVEL 109 MMOL/L (98-107); CREATININE FOR GFR 0.52 MG/DL (0.55-1.30); GLOMERULAR FILTRATION RATE > 60.0 (>32); GLUCOSE, FASTING 127 MG/DL (74-106); POTASSIUM SERUM 3.8 MMOL/L (3.5-5.1); SODIUM LEVEL 141 MMOL/L (136-145)
[2022-09-25] MEDS ORDERED: ACETAMINOPHEN 1000MG 100ML IV BAG IV ONE (20:25)
[2022-09-25 21:17] LABS: RSV AMPLIFICATION NEGATIVE (NEGATIVE)
[2022-09-25] MEDS: NS 1,000 ML IV SCH (22:14)
[2022-09-25] MEDS ORDERED: HEAL1TAB6 PO (22:32)
[2022-09-25] MEDS ORDERED: D-50TAB PO (22:32)
[2022-09-25] MEDS ORDERED: MAGN400T35 PO (22:32)
[2022-09-25] MEDS ORDERED: TURM500T PO (22:32)
[2022-09-25] MEDS ORDERED: HOME MED LIST COMPLETE! XX SCH (22:35)
[2022-09-25 23:16] LABS: CPK CREATINE PHOSPHOKINASE 746 U/L (34-145)
[2022-09-25 23:19] VITALS: BP 114/78
[2022-09-26] VITALS (7 sets, daily range): BP systolic 108–135; BP diastolic 56–77
[2022-09-26] MEDS: MORPHINE 2 MG/ML 1ML VIAL IV PRN ×2 (06:11→11:24)
[2022-09-26 06:18] LABS: BASO % 0.3 % (0.0-1.0); EOS % 0.3 % (0.0-3.0); HEMATOCRIT 37.1 % (36.0-47.0); HEMOGLOBIN 12.2 g/dl (12.0-15.5); LYMPH # 1.3 10^3/uL (1.5-5.0); LYMPH % 14.2 % (24.0-44.0); MEAN CORPUSCULAR HEMOGLOBIN 31.4 pg (27.0-33.0); MEAN CORPUSCULAR HGB CONC 32.9 g/dl (32.0-36.5); MEAN CORPUSCULAR VOLUME 95.4 fl (80.0-96.0); MONO % 10.5 % (2.0-8.0); NEUTROPHILS # 6.9 10^3/uL (1.5-8.5); NEUTROPHILS % 74.3 % (36.0-66.0); PLATELET COUNT, AUTOMATED 290 10^3/uL (150-450); RED BLOOD COUNT 3.89 10^6/uL (4.00-5.40); WHITE BLOOD COUNT 9.3 10^3/uL (4.0-10.0)
[2022-09-26 06:46] LABS: BLOOD UREA NITROGEN 22 MG/DL (9-23); CALCIUM LEVEL 8.4 MG/DL (8.3-10.6); CARBON DIOXIDE LEVEL 29 MMOL/L (20-31); CHLORIDE LEVEL 106 MMOL/L (98-107); CREATININE FOR GFR 0.51 MG/DL (0.55-1.30); GLOMERULAR FILTRATION RATE > 60.0 (>32); GLUCOSE, FASTING 120 MG/DL (74-106); POTASSIUM SERUM 4.2 MMOL/L (3.5-5.1); SODIUM LEVEL 141 MMOL/L (136-145)
[2022-09-26] MEDS: NS 1,000 ML IV SCH (09:29)
[2022-09-26] MEDS: ACETAMINOPHEN 500 MG TAB PO PRN (13:51)
[2022-09-26] MEDS: MAGNESIUM OXIDE 400MG TAB (MAG-OX) PO SCH (13:51)
[2022-09-26] MEDS ORDERED: LIDOCAINE 2% 100MG/5ML SDV (FOR ANES.) As Ordered ONE (18:58)
[2022-09-26] MEDS ORDERED: fentaNYL 100 MCG/2 ML INJECTION As Ordered ONE (18:58)
[2022-09-26] MEDS ORDERED: propofoL 200 MG/20 ML VIAL As Ordered ONE (18:58)
[2022-09-26] MEDS ORDERED: ceFAZolin 2 GM/D5W 50 ML IV BAG As Ordered ONE (18:58)
[2022-09-26] MEDS ORDERED: ONDANSETRON 4MG 2ML VIAL As Ordered ONE (18:58)
[2022-09-26] MEDS ORDERED: PHENYLephrine 500MCG 5ML (100MCG/ML) SYRINGE As Ordered ONE ×2 (18:59→19:21)
[2022-09-26] MEDS ORDERED: ACETAMINOPHEN 1000MG 100ML IV BAG As Ordered ONE (19:06)
[2022-09-26] MEDS ORDERED: DESFLURANE 240 ML INHALANT As Ordered ONE (19:14)
[2022-09-26] MEDS ORDERED: fentaNYL 100 MCG/2 ML INJECTION IV PRN (19:25)
[2022-09-26] MEDS ORDERED: ONDANSETRON 4MG 2ML VIAL IV PRN (19:25)
[2022-09-26] MEDS ORDERED: LR 1,000 ML IV SCH (19:25)
[2022-09-26] MEDS ORDERED: HYDROMORPHONE HCL 0.5 MG/ 0.5 ML SYRINGE IV PRN (19:25)
[2022-09-26] MEDS ORDERED: oxyCODONE 5MG TAB PO PRN (19:25)
[2022-09-26] MEDS ORDERED: PARoxetine 10MG TABLET PO SCH (21:00)
[2022-09-27] MEDS: ACETAMINOPHEN 500 MG TAB PO PRN (03:50)
[2022-09-27 05:24] VITALS: BP 108/59
[2022-09-27 08:00] VITALS: BP 110/63
[2022-09-27] MEDS ORDERED: ASPIRIN 81MG ENTERIC TABLET PO SCH (09:00)
[2022-09-27] MEDS ORDERED: PERCOCET 5MG/325MG TAB PO PRN (09:40)
[2022-09-27 10:00] VITALS: BP 110/62
[2022-09-27] MEDS: MAGNESIUM OXIDE 400MG TAB (MAG-OX) PO SCH (10:39)
[2022-09-27] MEDS ORDERED: MORP2INJ4 IV (11:44)
[2022-09-27] MEDS ORDERED: PERCOCET PO (11:44)
[2022-09-27 12:44] VITALS: BP 111/64
== END 2022-09-27 13:55 | disposition other institution (70) | DRG 481 ==
LOC: EDBD 18:34 → M ED 18:34 → M ED INP 20:51 → M MS5PR 23:11
PROVIDERS: ADMIT Family Medicine; ATTEND Family Medicine
PROC: BQ11ZZZ Fluoroscopy of Left Hip (ICD-10-PCS; 2022-09-26)
PROC: 0QS736Z Reposition Left Upper Femur with Intramedullary Internal Fixation Device, Percutaneous Approach (ICD-10-PCS; principal; 2022-09-26 15:00)
DX: S72.142A Displaced intertrochanteric fracture of left femur, initial encounter for closed fracture (principal); M62.82 Rhabdomyolysis; G93.40 Encephalopathy, unspecified; Z66 Do not resuscitate; E78.5 Hyperlipidemia, unspecified; R33.9 Retention of urine, unspecified; M85.88 Other specified disorders of bone density and structure, other site; I25.2 Old myocardial infarction; Z95.5 Presence of coronary angioplasty implant and graft; M17.0 Bilateral primary osteoarthritis of knee; F32.A Depression, unspecified; Z90.49 Acquired absence of other specified parts of digestive tract; Z96.653 Presence of artificial knee joint, bilateral; Z87.891 Personal history of nicotine dependence; W01.0XXA Fall on same level from slipping, tripping and stumbling without subsequent striking against object, initial encounter; Y92.009 Unspecified place in unspecified non-institutional (private) residence as the place of occurrence of the external cause; Z79.82 Long term (current) use of aspirin; Z79.899 Other long term (current) drug therapy; Z88.8 Allergy status to other drugs, medicaments and biological substances

== ENCOUNTER 2022-09-27 09:03 | Inpatient (IN) | payer MEDICARE, OTHER ==
[~2022-09-27] VITALS: Ht 157.5 cm; Wt 51.7 kg
[~2022-09-27 09:03] MED LIST changes: +D-50TAB PO; +HEAL1TAB6 PO; +MAGN400T35 PO; +TURM500T PO
[2022-09-27] MEDS ORDERED: PERCOCET PO (11:44)
[2022-09-27] MEDS ORDERED: MORP2INJ4 IV (11:44)
[2022-09-27 14:00] VITALS: BP 101/56
[2022-09-27] MEDS ORDERED: ONDANSETRON 4MG TAB PO PRN (15:25)
[2022-09-27] MEDS ORDERED: ONDANSETRON 4MG ORAL DISINTEGRATING TAB PO PRN (15:25)
[2022-09-27] MEDS: REMEDY PHYTOPLEX Z-GUARD PASTE 113GM TUBE (FROM STOREROOM PRODUCT) TOP SCH ×2 (15:51→20:49)
[2022-09-27] MEDS: ACETAMINOPHEN 500 MG TAB PO SCH ×2 (15:59→20:49)
[2022-09-27 20:18] VITALS: BP 125/60
[2022-09-27] MEDS: DOCUSATE SODIUM 100MG CAPSULE PO SCH (20:48)
[2022-09-27] MEDS: PARoxetine 10MG TABLET PO SCH (20:48)
[2022-09-27] MEDS: SENNA 8.6 MG TAB (SENOKOT) PO SCH (20:49)
[2022-09-27] MEDS: RAMELTEON 8 MG TAB (ROZEREM) PO PRN (20:49)
[2022-09-28 05:36] VITALS: BP 124/66
[2022-09-28 06:19] LABS: BASO % 0.3 % (0.0-1.0); EOS # 0.2 10^3/uL (0.0-0.5); EOS % 2.5 % (0.0-3.0); HEMATOCRIT 30.2 % (36.0-47.0); HEMOGLOBIN 9.6 g/dl (12.0-15.5); LYMPH # 1.6 10^3/uL (1.5-5.0); LYMPH % 17.6 % (24.0-44.0); MEAN CORPUSCULAR HGB CONC 31.8 g/dl (32.0-36.5); MEAN CORPUSCULAR VOLUME 97.4 fl (80.0-96.0); MONO # 0.9 10^3/uL (0.0-0.8); MONO % 9.8 % (2.0-8.0); NEUTROPHILS # 6.1 10^3/uL (1.5-8.5); NEUTROPHILS % 69.1 % (36.0-66.0); PLATELET COUNT, AUTOMATED 228 10^3/uL (150-450); WHITE BLOOD COUNT 8.9 10^3/uL (4.0-10.0)
[2022-09-28 06:40] LABS: ALBUMIN 2.6 G/DL (3.2-5.2); ALKALINE PHOSPHATASE 60 U/L (46-116); ALT/SGPT 34 U/L (7.0-40); AST/SGOT 25 U/L (<34); BILIRUBIN,TOTAL 0.6 MG/DL (0.3-1.2); BLOOD UREA NITROGEN 18 MG/DL (9-23); CARBON DIOXIDE LEVEL 28 MMOL/L (20-31); CHLORIDE LEVEL 107 MMOL/L (98-107); CREATININE FOR GFR 0.45 MG/DL (0.55-1.30); GLOMERULAR FILTRATION RATE > 60.0 (>32); GLUCOSE, FASTING 96 MG/DL (74-106); POTASSIUM SERUM 3.6 MMOL/L (3.5-5.1); SODIUM LEVEL 142 MMOL/L (136-145); TOTAL PROTEIN 5.4 G/DL (5.7-8.2)
[2022-09-28] MEDS: REMEDY PHYTOPLEX Z-GUARD PASTE 113GM TUBE (FROM STOREROOM PRODUCT) TOP SCH ×3 (09:00→19:47)
[2022-09-28] MEDS: PANTOPRAZOLE 40MG TAB (PROTONIX) PO SCH (09:19)
[2022-09-28] MEDS: DOCUSATE SODIUM 100MG CAPSULE PO SCH ×2 (09:19→19:46)
[2022-09-28] MEDS: MAGNESIUM OXIDE 400MG TAB (MAG-OX) PO SCH (09:19)
[2022-09-28] MEDS: ASPIRIN 81MG ENTERIC TABLET PO SCH (09:19)
[2022-09-28] MEDS: ACETAMINOPHEN 500 MG TAB PO SCH ×3 (09:20→19:47)
[2022-09-28] MEDS: LACTOBACILLUS ACIDOPHILUS CAP (BACID) PO SCH ×2 (10:26→17:19)
[2022-09-28] MEDS: DICLOFENAC EPOLAMINE 1.3% PATCH TOP SCH ×2 (10:34→19:48)
[2022-09-28] MEDS: ENOXAPARIN 40MG/0.4ML SYRINGE (J1650 PER 10MG) SC SCH (10:34)
[2022-09-28] MEDS: LevoFLOXacin 250 MG TABLET PO SCH (10:34)
[2022-09-28 14:00] VITALS: BP 110/58
[2022-09-28] MEDS: SENNA 8.6 MG TAB (SENOKOT) PO SCH (19:46)
[2022-09-28] MEDS: PARoxetine 10MG TABLET PO SCH (19:46)
[2022-09-28] MEDS: RAMELTEON 8 MG TAB (ROZEREM) PO PRN (19:46)
[2022-09-28 20:00] VITALS: BP_SYST 116; BP_SYST 16; BP_DIAS 53
[2022-09-29] MEDS: LevoFLOXacin 250 MG TABLET PO SCH (05:46)
[2022-09-29 06:00] VITALS: BP 148/64
[2022-09-29] MEDS: DOCUSATE SODIUM 100MG CAPSULE PO SCH ×2 (08:39→20:22)
[2022-09-29] MEDS: ACETAMINOPHEN 500 MG TAB PO SCH ×3 (08:39→20:23)
[2022-09-29] MEDS: MAGNESIUM OXIDE 400MG TAB (MAG-OX) PO SCH (08:39)
[2022-09-29] MEDS: PANTOPRAZOLE 40MG TAB (PROTONIX) PO SCH (08:39)
[2022-09-29] MEDS: LACTOBACILLUS ACIDOPHILUS CAP (BACID) PO SCH ×2 (08:39→17:24)
[2022-09-29] MEDS: ASPIRIN 81MG ENTERIC TABLET PO SCH (08:40)
[2022-09-29] MEDS: REMEDY PHYTOPLEX Z-GUARD PASTE 113GM TUBE (FROM STOREROOM PRODUCT) TOP SCH ×3 (08:40→21:00)
[2022-09-29] MEDS: DICLOFENAC EPOLAMINE 1.3% PATCH TOP SCH ×2 (08:40→20:22)
[2022-09-29] MEDS: ENOXAPARIN 40MG/0.4ML SYRINGE (J1650 PER 10MG) SC SCH (08:40)
[2022-09-29 14:00] VITALS: BP 108/55
[2022-09-29 20:00] VITALS: BP 124/59
[2022-09-29] MEDS: PARoxetine 10MG TABLET PO SCH (20:22)
[2022-09-29] MEDS: SENNA 8.6 MG TAB (SENOKOT) PO SCH (20:22)
[2022-09-30 06:00] VITALS: BP 132/63
[2022-09-30] MEDS: LevoFLOXacin 250 MG TABLET PO SCH (06:05)
[2022-09-30] MEDS: DOCUSATE SODIUM 100MG CAPSULE PO SCH ×2 (08:34→22:15)
[2022-09-30] MEDS: ACETAMINOPHEN 500 MG TAB PO SCH ×3 (08:34→20:14)
[2022-09-30] MEDS: ASPIRIN 81MG ENTERIC TABLET PO SCH (08:34)
[2022-09-30] MEDS: MAGNESIUM OXIDE 400MG TAB (MAG-OX) PO SCH (08:34)
[2022-09-30] MEDS: REMEDY PHYTOPLEX Z-GUARD PASTE 113GM TUBE (FROM STOREROOM PRODUCT) TOP SCH ×3 (08:35→21:00)
[2022-09-30] MEDS: LACTOBACILLUS ACIDOPHILUS CAP (BACID) PO SCH ×2 (08:35→17:46)
[2022-09-30] MEDS: DICLOFENAC EPOLAMINE 1.3% PATCH TOP SCH ×2 (08:35→20:14)
[2022-09-30] MEDS: PANTOPRAZOLE 40MG TAB (PROTONIX) PO SCH (08:35)
[2022-09-30] MEDS: ENOXAPARIN 40MG/0.4ML SYRINGE (J1650 PER 10MG) SC SCH (08:35)
[2022-09-30 20:09] VITALS: BP 129/64
[2022-09-30] MEDS: PARoxetine 10MG TABLET PO SCH (20:14)
[2022-09-30] MEDS: RAMELTEON 8 MG TAB (ROZEREM) PO PRN (22:15)
[2022-09-30] MEDS: SENNA 8.6 MG TAB (SENOKOT) PO SCH (22:15)
[2022-10-01 06:00] VITALS: BP 129/73
[2022-10-01 06:36] LABS: HEMATOCRIT 30.8 % (36.0-47.0); HEMOGLOBIN 9.7 g/dl (12.0-15.5); MEAN CORPUSCULAR HEMOGLOBIN 30.9 pg (27.0-33.0); MEAN CORPUSCULAR HGB CONC 31.5 g/dl (32.0-36.5); MEAN CORPUSCULAR VOLUME 98.1 fl (80.0-96.0); PLATELET COUNT, AUTOMATED 356 10^3/uL (150-450); RED BLOOD COUNT 3.14 10^6/uL (4.00-5.40); WHITE BLOOD COUNT 7.7 10^3/uL (4.0-10.0)
[2022-10-01] MEDS: DOCUSATE SODIUM 100MG CAPSULE PO SCH ×2 (09:00→21:17)
[2022-10-01] MEDS: REMEDY PHYTOPLEX Z-GUARD PASTE 113GM TUBE (FROM STOREROOM PRODUCT) TOP SCH ×3 (09:00→21:00)
[2022-10-01] MEDS: ASPIRIN 81MG ENTERIC TABLET PO SCH (09:23)
[2022-10-01] MEDS: PANTOPRAZOLE 40MG TAB (PROTONIX) PO SCH (09:23)
[2022-10-01] MEDS: MAGNESIUM OXIDE 400MG TAB (MAG-OX) PO SCH (09:23)
[2022-10-01] MEDS: LACTOBACILLUS ACIDOPHILUS CAP (BACID) PO SCH ×2 (09:23→17:29)
[2022-10-01] MEDS: ENOXAPARIN 40MG/0.4ML SYRINGE (J1650 PER 10MG) SC SCH (09:24)
[2022-10-01] MEDS: DICLOFENAC EPOLAMINE 1.3% PATCH TOP SCH ×2 (09:24→21:00)
[2022-10-01] MEDS: ACETAMINOPHEN 500 MG TAB PO SCH ×3 (09:24→21:00)
[2022-10-01] MEDS: oxyCODONE 5MG TAB PO PRN (11:17)
[2022-10-01 12:59] LABS: BLOOD UREA NITROGEN 18 MG/DL (9-23); CALCIUM LEVEL 8.8 MG/DL (8.3-10.6); CARBON DIOXIDE LEVEL 27 MMOL/L (20-31); CHLORIDE LEVEL 106 MMOL/L (98-107); GLOMERULAR FILTRATION RATE > 60.0 (>32); GLUCOSE, FASTING 105 MG/DL (74-106); SODIUM LEVEL 142 MMOL/L (136-145)
[2022-10-01 14:00] VITALS: BP 126/67
[2022-10-01] MEDS: PARoxetine 10MG TABLET PO SCH (21:17)
[2022-10-01] MEDS: SENNA 8.6 MG TAB (SENOKOT) PO SCH (21:17)
[2022-10-01] MEDS: RAMELTEON 8 MG TAB (ROZEREM) PO PRN (23:43)
[2022-10-02 06:00] VITALS: BP 115/55
[2022-10-02] MEDS: DICLOFENAC EPOLAMINE 1.3% PATCH TOP SCH ×2 (08:18→20:16)
[2022-10-02] MEDS: MAGNESIUM OXIDE 400MG TAB (MAG-OX) PO SCH (08:19)
[2022-10-02] MEDS: ACETAMINOPHEN 500 MG TAB PO SCH ×3 (08:19→20:16)
[2022-10-02] MEDS: PANTOPRAZOLE 40MG TAB (PROTONIX) PO SCH (08:19)
[2022-10-02] MEDS: LACTOBACILLUS ACIDOPHILUS CAP (BACID) PO SCH ×2 (08:19→17:17)
[2022-10-02] MEDS: ASPIRIN 81MG ENTERIC TABLET PO SCH (08:19)
[2022-10-02] MEDS: ENOXAPARIN 40MG/0.4ML SYRINGE (J1650 PER 10MG) SC SCH (08:20)
[2022-10-02] MEDS: REMEDY PHYTOPLEX Z-GUARD PASTE 113GM TUBE (FROM STOREROOM PRODUCT) TOP SCH ×3 (08:20→20:17)
[2022-10-02] MEDS: DOCUSATE SODIUM 100MG CAPSULE PO SCH ×2 (09:00→20:16)
[2022-10-02 14:00] VITALS: BP 125/61
[2022-10-02 20:00] VITALS: BP 118/63
[2022-10-02] MEDS: RAMELTEON 8 MG TAB (ROZEREM) PO PRN (20:15)
[2022-10-02] MEDS: PARoxetine 10MG TABLET PO SCH (20:16)
[2022-10-02] MEDS: SENNA 8.6 MG TAB (SENOKOT) PO SCH (20:16)
[2022-10-03 06:00] VITALS: BP 131/68
[2022-10-03] MEDS: ENOXAPARIN 40MG/0.4ML SYRINGE (J1650 PER 10MG) SC SCH (08:13)
[2022-10-03] MEDS: DOCUSATE SODIUM 100MG CAPSULE PO SCH ×2 (08:13→20:09)
[2022-10-03] MEDS: PANTOPRAZOLE 40MG TAB (PROTONIX) PO SCH (08:13)
[2022-10-03] MEDS: LACTOBACILLUS ACIDOPHILUS CAP (BACID) PO SCH ×2 (08:13→17:02)
[2022-10-03] MEDS: MAGNESIUM OXIDE 400MG TAB (MAG-OX) PO SCH (08:13)
[2022-10-03] MEDS: ASPIRIN 81MG ENTERIC TABLET PO SCH (08:13)
[2022-10-03] MEDS: REMEDY PHYTOPLEX Z-GUARD PASTE 113GM TUBE (FROM STOREROOM PRODUCT) TOP SCH ×3 (08:14→20:10)
[2022-10-03] MEDS: ACETAMINOPHEN 500 MG TAB PO SCH ×3 (08:14→20:08)
[2022-10-03] MEDS: DICLOFENAC EPOLAMINE 1.3% PATCH TOP SCH (11:30)
[2022-10-03 12:15] LABS: BASO # 0.1 10^3/uL (0.0-0.2); BASO % 0.5 % (0.0-1.0); EOS # 0.3 10^3/uL (0.0-0.5); EOS % 2.9 % (0.0-3.0); HEMATOCRIT 34.8 % (36.0-47.0); HEMOGLOBIN 10.9 g/dl (12.0-15.5); LYMPH % 16.6 % (24.0-44.0); MEAN CORPUSCULAR HEMOGLOBIN 30.7 pg (27.0-33.0); MEAN CORPUSCULAR HGB CONC 31.3 g/dl (32.0-36.5); MONO # 0.9 10^3/uL (0.0-0.8); MONO % 7.8 % (2.0-8.0); NEUTROPHILS # 8.5 10^3/uL (1.5-8.5); NEUTROPHILS % 71.4 % (36.0-66.0); PLATELET COUNT, AUTOMATED 542 10^3/uL (150-450); RED BLOOD COUNT 3.55 10^6/uL (4.00-5.40); WHITE BLOOD COUNT 11.9 10^3/uL (4.0-10.0)
[2022-10-03 12:43] LABS: BLOOD UREA NITROGEN 20 MG/DL (9-23); CALCIUM LEVEL 9.2 MG/DL (8.3-10.6); CARBON DIOXIDE LEVEL 26 MMOL/L (20-31); CHLORIDE LEVEL 104 MMOL/L (98-107); CREATININE FOR GFR 0.45 MG/DL (0.55-1.30); GLOMERULAR FILTRATION RATE > 60.0 (>32); GLUCOSE, FASTING 102 MG/DL (74-106); POTASSIUM SERUM 4.3 MMOL/L (3.5-5.1); SODIUM LEVEL 138 MMOL/L (136-145)
[2022-10-03 14:10] VITALS: BP 120/59
[2022-10-03 20:00] VITALS: BP 129/60
[2022-10-03] MEDS: SENNA 8.6 MG TAB (SENOKOT) PO SCH (20:09)
[2022-10-03] MEDS: PARoxetine 10MG TABLET PO SCH (20:09)
[2022-10-03] MEDS: FLUTICASONE PROP 0.05% NASAL SPRAY 16 GM (FLONASE) NARES SCH (20:10)
[2022-10-03] MEDS: SODIUM CHLORIDE NASAL 0.65% SPRAY BTL (OCEAN) SCH (20:10)
[2022-10-04 06:00] VITALS: BP 127/58
[2022-10-04] MEDS: ASPIRIN 81MG ENTERIC TABLET PO SCH (08:54)
[2022-10-04] MEDS: LACTOBACILLUS ACIDOPHILUS CAP (BACID) PO SCH ×2 (08:54→17:10)
[2022-10-04] MEDS: MAGNESIUM OXIDE 400MG TAB (MAG-OX) PO SCH (08:54)
[2022-10-04] MEDS: ENOXAPARIN 40MG/0.4ML SYRINGE (J1650 PER 10MG) SC SCH (08:55)
[2022-10-04] MEDS: DOCUSATE SODIUM 100MG CAPSULE PO SCH ×2 (08:55→20:15)
[2022-10-04] MEDS: FLUTICASONE PROP 0.05% NASAL SPRAY 16 GM (FLONASE) NARES SCH ×2 (08:55→20:16)
[2022-10-04] MEDS: ACETAMINOPHEN 500 MG TAB PO SCH ×3 (08:55→20:15)
[2022-10-04] MEDS: SODIUM CHLORIDE NASAL 0.65% SPRAY BTL (OCEAN) SCH ×3 (08:55→20:16)
[2022-10-04] MEDS: REMEDY PHYTOPLEX Z-GUARD PASTE 113GM TUBE (FROM STOREROOM PRODUCT) TOP SCH ×3 (08:55→20:16)
[2022-10-04] MEDS: PANTOPRAZOLE 40MG TAB (PROTONIX) PO SCH (08:56)
[2022-10-04 12:58] LABS: BASO # 0.1 10^3/uL (0.0-0.2); BASO % 0.5 % (0.0-1.0); EOS # 0.3 10^3/uL (0.0-0.5); EOS % 2.6 % (0.0-3.0); HEMATOCRIT 34.6 % (36.0-47.0); HEMOGLOBIN 10.7 g/dl (12.0-15.5); LYMPH # 1.9 10^3/uL (1.5-5.0); LYMPH % 16.3 % (24.0-44.0); MEAN CORPUSCULAR HEMOGLOBIN 30.5 pg (27.0-33.0); MEAN CORPUSCULAR HGB CONC 30.9 g/dl (32.0-36.5); MEAN CORPUSCULAR VOLUME 98.6 fl (80.0-96.0); MONO # 0.7 10^3/uL (0.0-0.8); MONO % 6.4 % (2.0-8.0); NEUTROPHILS # 8.3 10^3/uL (1.5-8.5); NEUTROPHILS % 73.1 % (36.0-66.0); PLATELET COUNT, AUTOMATED 583 10^3/uL (150-450); RED BLOOD COUNT 3.51 10^6/uL (4.00-5.40); WHITE BLOOD COUNT 11.4 10^3/uL (4.0-10.0)
[2022-10-04 14:00] VITALS: BP 126/63
[2022-10-04] MEDS: CEPHALEXIN 500 MG CAP PO SCH ×2 (17:10→23:50)
[2022-10-04 20:00] VITALS: BP 132/62
[2022-10-04] MEDS: PARoxetine 10MG TABLET PO SCH (20:15)
[2022-10-04] MEDS: SENNA 8.6 MG TAB (SENOKOT) PO SCH (20:16)
[2022-10-04] MEDS: traZODone 25MG PER 1/2 TABLET PO SCH (20:16)
[2022-10-05 05:45] VITALS: BP 132/71
[2022-10-05] MEDS: CEPHALEXIN 500 MG CAP PO SCH ×4 (05:57→23:08)
[2022-10-05 07:05] LABS: BASO # 0.1 10^3/uL (0.0-0.2); BASO % 0.7 % (0.0-1.0); EOS # 0.4 10^3/uL (0.0-0.5); EOS % 4.6 % (0.0-3.0); HEMATOCRIT 30.2 % (36.0-47.0); HEMOGLOBIN 9.4 g/dl (12.0-15.5); LYMPH # 1.7 10^3/uL (1.5-5.0); LYMPH % 22.6 % (24.0-44.0); MEAN CORPUSCULAR HEMOGLOBIN 30.4 pg (27.0-33.0); MEAN CORPUSCULAR HGB CONC 31.1 g/dl (32.0-36.5); MEAN CORPUSCULAR VOLUME 97.7 fl (80.0-96.0); MONO # 0.8 10^3/uL (0.0-0.8); MONO % 10.1 % (2.0-8.0); NEUTROPHILS # 4.7 10^3/uL (1.5-8.5); NEUTROPHILS % 61.1 % (36.0-66.0); PLATELET COUNT, AUTOMATED 549 10^3/uL (150-450); RED BLOOD COUNT 3.09 10^6/uL (4.00-5.40); WHITE BLOOD COUNT 7.6 10^3/uL (4.0-10.0)
[2022-10-05 07:32] LABS: BLOOD UREA NITROGEN 20 MG/DL (9-23); CALCIUM LEVEL 8.4 MG/DL (8.3-10.6); CARBON DIOXIDE LEVEL 29 MMOL/L (20-31); CHLORIDE LEVEL 107 MMOL/L (98-107); CREATININE FOR GFR 0.46 MG/DL (0.55-1.30); GLOMERULAR FILTRATION RATE > 60.0 (>32); GLUCOSE, FASTING 88 MG/DL (74-106); POTASSIUM SERUM 4.6 MMOL/L (3.5-5.1); SODIUM LEVEL 140 MMOL/L (136-145)
[2022-10-05] MEDS: ASPIRIN 81MG ENTERIC TABLET PO SCH (09:09)
[2022-10-05] MEDS: MAGNESIUM OXIDE 400MG TAB (MAG-OX) PO SCH (09:09)
[2022-10-05] MEDS: DOCUSATE SODIUM 100MG CAPSULE PO SCH ×2 (09:09→20:35)
[2022-10-05] MEDS: PANTOPRAZOLE 40MG TAB (PROTONIX) PO SCH (09:09)
[2022-10-05] MEDS: SODIUM CHLORIDE NASAL 0.65% SPRAY BTL (OCEAN) SCH ×3 (09:10→20:37)
[2022-10-05] MEDS: FLUTICASONE PROP 0.05% NASAL SPRAY 16 GM (FLONASE) NARES SCH ×2 (09:10→20:37)
[2022-10-05] MEDS: ACETAMINOPHEN 500 MG TAB PO SCH ×3 (09:10→20:35)
[2022-10-05] MEDS: ENOXAPARIN 40MG/0.4ML SYRINGE (J1650 PER 10MG) SC SCH (09:10)
[2022-10-05] MEDS: REMEDY PHYTOPLEX Z-GUARD PASTE 113GM TUBE (FROM STOREROOM PRODUCT) TOP SCH ×3 (09:11→20:37)
[2022-10-05] MEDS: LACTOBACILLUS ACIDOPHILUS CAP (BACID) PO SCH ×2 (09:16→17:31)
[2022-10-05] MEDS: oxyCODONE 5MG TAB PO PRN (10:10)
[2022-10-05] MEDS ORDERED: oxyCODONE 5MG TAB PO PRN (11:40)
[2022-10-05] MEDS: oxyCODONE 5MG TAB PO SCH (12:00)
[2022-10-05 14:11] VITALS: BP 119/56
[2022-10-05 20:00] VITALS: BP 106/61
[2022-10-05] MEDS: traZODone 25MG PER 1/2 TABLET PO SCH (20:35)
[2022-10-05] MEDS: PARoxetine 10MG TABLET PO SCH (20:35)
[2022-10-05] MEDS: SENNA 8.6 MG TAB (SENOKOT) PO SCH (20:35)
[2022-10-06 06:00] VITALS: BP 117/68
[2022-10-06] MEDS: CEPHALEXIN 500 MG CAP PO SCH ×3 (06:02→17:10)
[2022-10-06] MEDS: REMEDY PHYTOPLEX Z-GUARD PASTE 113GM TUBE (FROM STOREROOM PRODUCT) TOP SCH ×3 (08:19→21:00)
[2022-10-06] MEDS: ENOXAPARIN 40MG/0.4ML SYRINGE (J1650 PER 10MG) SC SCH (08:26)
[2022-10-06] MEDS: oxyCODONE 5MG TAB PO SCH ×2 (08:28→12:00)
[2022-10-06] MEDS: DOCUSATE SODIUM 100MG CAPSULE PO SCH ×2 (08:29→21:10)
[2022-10-06] MEDS: ACETAMINOPHEN 500 MG TAB PO SCH ×3 (08:29→21:10)
[2022-10-06] MEDS: LACTOBACILLUS ACIDOPHILUS CAP (BACID) PO SCH ×2 (08:29→17:10)
[2022-10-06] MEDS: PANTOPRAZOLE 40MG TAB (PROTONIX) PO SCH (08:29)
[2022-10-06] MEDS: ASPIRIN 81MG ENTERIC TABLET PO SCH (08:29)
[2022-10-06] MEDS: MAGNESIUM OXIDE 400MG TAB (MAG-OX) PO SCH (08:30)
[2022-10-06] MEDS: SODIUM CHLORIDE NASAL 0.65% SPRAY BTL (OCEAN) SCH ×3 (08:30→21:10)
[2022-10-06] MEDS: FLUTICASONE PROP 0.05% NASAL SPRAY 16 GM (FLONASE) NARES SCH ×2 (08:30→21:10)
[2022-10-06 14:00] VITALS: BP 110/59
[2022-10-06 20:00] VITALS: BP 136/76
[2022-10-06] MEDS: PARoxetine 10MG TABLET PO SCH (21:09)
[2022-10-06] MEDS: SENNA 8.6 MG TAB (SENOKOT) PO SCH (21:09)
[2022-10-06] MEDS: traZODone 25MG PER 1/2 TABLET PO SCH (21:09)
[2022-10-07] MEDS: CEPHALEXIN 500 MG CAP PO SCH ×4 (00:59→17:19)
[2022-10-07 06:00] VITALS: BP 123/75
[2022-10-07] MEDS: PANTOPRAZOLE 40MG TAB (PROTONIX) PO SCH (08:30)
[2022-10-07] MEDS: ASPIRIN 81MG ENTERIC TABLET PO SCH (08:30)
[2022-10-07] MEDS: DOCUSATE SODIUM 100MG CAPSULE PO SCH ×2 (08:30→20:31)
[2022-10-07] MEDS: LACTOBACILLUS ACIDOPHILUS CAP (BACID) PO SCH ×2 (08:30→17:18)
[2022-10-07] MEDS: MAGNESIUM OXIDE 400MG TAB (MAG-OX) PO SCH (08:30)
[2022-10-07] MEDS: ACETAMINOPHEN 500 MG TAB PO SCH ×3 (08:31→20:31)
[2022-10-07] MEDS: oxyCODONE 5MG TAB PO SCH ×2 (08:32→12:10)
[2022-10-07] MEDS: ENOXAPARIN 40MG/0.4ML SYRINGE (J1650 PER 10MG) SC SCH (08:33)
[2022-10-07] MEDS: FLUTICASONE PROP 0.05% NASAL SPRAY 16 GM (FLONASE) NARES SCH ×2 (08:33→20:35)
[2022-10-07] MEDS: SODIUM CHLORIDE NASAL 0.65% SPRAY BTL (OCEAN) SCH ×3 (08:33→20:35)
[2022-10-07] MEDS: REMEDY PHYTOPLEX Z-GUARD PASTE 113GM TUBE (FROM STOREROOM PRODUCT) TOP SCH ×3 (08:34→20:35)
[2022-10-07 14:00] VITALS: BP 125/70
[2022-10-07 20:17] VITALS: BP 113/56
[2022-10-07] MEDS: SENNA 8.6 MG TAB (SENOKOT) PO SCH (20:31)
[2022-10-07] MEDS: traZODone 25MG PER 1/2 TABLET PO SCH (20:31)
[2022-10-07] MEDS: PARoxetine 10MG TABLET PO SCH (20:31)
[2022-10-08] MEDS: CEPHALEXIN 500 MG CAP PO SCH ×5 (00:05→23:51)
[2022-10-08 05:30] VITALS: BP 123/64
[2022-10-08] MEDS: oxyCODONE 5MG TAB PO SCH ×2 (07:43→11:48)
[2022-10-08] MEDS: LACTOBACILLUS ACIDOPHILUS CAP (BACID) PO SCH ×2 (07:43→17:26)
[2022-10-08] MEDS: ENOXAPARIN 40MG/0.4ML SYRINGE (J1650 PER 10MG) SC SCH (07:44)
[2022-10-08] MEDS: DOCUSATE SODIUM 100MG CAPSULE PO SCH ×2 (07:44→21:19)
[2022-10-08] MEDS: ACETAMINOPHEN 500 MG TAB PO SCH ×3 (07:44→21:20)
[2022-10-08] MEDS: MAGNESIUM OXIDE 400MG TAB (MAG-OX) PO SCH (07:44)
[2022-10-08] MEDS: PANTOPRAZOLE 40MG TAB (PROTONIX) PO SCH (07:44)
[2022-10-08] MEDS: ASPIRIN 81MG ENTERIC TABLET PO SCH (07:44)
[2022-10-08] MEDS: FLUTICASONE PROP 0.05% NASAL SPRAY 16 GM (FLONASE) NARES SCH ×2 (07:45→21:00)
[2022-10-08] MEDS: REMEDY PHYTOPLEX Z-GUARD PASTE 113GM TUBE (FROM STOREROOM PRODUCT) TOP SCH ×3 (07:45→21:00)
[2022-10-08] MEDS: SODIUM CHLORIDE NASAL 0.65% SPRAY BTL (OCEAN) SCH ×3 (07:45→21:00)
[2022-10-08 10:56] LABS: BASO # 0.1 10^3/uL (0.0-0.2); BASO % 0.6 % (0.0-1.0); EOS # 0.2 10^3/uL (0.0-0.5); EOS % 1.9 % (0.0-3.0); HEMATOCRIT 36.3 % (36.0-47.0); HEMOGLOBIN 11.4 g/dl (12.0-15.5); LYMPH # 2.2 10^3/uL (1.5-5.0); LYMPH % 17.4 % (24.0-44.0); MEAN CORPUSCULAR HGB CONC 31.4 g/dl (32.0-36.5); MEAN CORPUSCULAR VOLUME 98.6 fl (80.0-96.0); MONO # 0.8 10^3/uL (0.0-0.8); MONO % 6.6 % (2.0-8.0); NEUTROPHILS # 9.1 10^3/uL (1.5-8.5); NEUTROPHILS % 72.7 % (36.0-66.0); PLATELET COUNT, AUTOMATED 834 10^3/uL (150-450); RED BLOOD COUNT 3.68 10^6/uL (4.00-5.40); WHITE BLOOD COUNT 12.5 10^3/uL (4.0-10.0)
[2022-10-08 11:32] LABS: BLOOD UREA NITROGEN 15 MG/DL (9-23); CALCIUM LEVEL 8.9 MG/DL (8.3-10.6); CARBON DIOXIDE LEVEL 26 MMOL/L (20-31); CHLORIDE LEVEL 106 MMOL/L (98-107); CREATININE FOR GFR 0.47 MG/DL (0.55-1.30); GLOMERULAR FILTRATION RATE > 60.0 (>32); GLUCOSE, FASTING 92 MG/DL (74-106); SODIUM LEVEL 139 MMOL/L (136-145)
[2022-10-08] MEDS: GABAPENTIN 100 MG CAP PO SCH ×3 (11:48→21:20)
[2022-10-08] MEDS: LIDOCAINE 5% (LIDODERM) PATCH TD SCH (11:50)
[2022-10-08 14:00] VITALS: BP 112/57
[2022-10-08 19:26] VITALS: BP 128/69
[2022-10-08] MEDS: SENNA 8.6 MG TAB (SENOKOT) PO SCH (21:20)
[2022-10-08] MEDS: traZODone 25MG PER 1/2 TABLET PO SCH (21:20)
[2022-10-08] MEDS: PARoxetine 10MG TABLET PO SCH (21:20)
[2022-10-09 06:23] VITALS: BP 124/58
[2022-10-09] MEDS: CEPHALEXIN 500 MG CAP PO SCH ×3 (06:45→17:32)
[2022-10-09] MEDS: oxyCODONE 5MG TAB PO SCH ×2 (07:03→12:13)
[2022-10-09] MEDS: LACTOBACILLUS ACIDOPHILUS CAP (BACID) PO SCH ×2 (07:03→17:32)
[2022-10-09 08:15] LABS: BASO # 0.1 10^3/uL (0.0-0.2); EOS # 0.3 10^3/uL (0.0-0.5); HEMATOCRIT 34.6 % (36.0-47.0); HEMOGLOBIN 10.5 g/dl (12.0-15.5); LYMPH # 1.8 10^3/uL (1.5-5.0); LYMPH % 25.1 % (24.0-44.0); MEAN CORPUSCULAR HEMOGLOBIN 30.3 pg (27.0-33.0); MEAN CORPUSCULAR HGB CONC 30.3 g/dl (32.0-36.5); MEAN CORPUSCULAR VOLUME 99.7 fl (80.0-96.0); MONO # 0.5 10^3/uL (0.0-0.8); MONO % 6.4 % (2.0-8.0); NEUTROPHILS # 4.5 10^3/uL (1.5-8.5); NEUTROPHILS % 62.7 % (36.0-66.0); PLATELET COUNT, AUTOMATED 808 10^3/uL (150-450); RED BLOOD COUNT 3.47 10^6/uL (4.00-5.40); WHITE BLOOD COUNT 7.2 10^3/uL (4.0-10.0)
[2022-10-09] MEDS: SODIUM CHLORIDE NASAL 0.65% SPRAY BTL (OCEAN) SCH ×3 (09:00→20:38)
[2022-10-09] MEDS: REMEDY PHYTOPLEX Z-GUARD PASTE 113GM TUBE (FROM STOREROOM PRODUCT) TOP SCH ×3 (09:00→20:38)
[2022-10-09] MEDS: FLUTICASONE PROP 0.05% NASAL SPRAY 16 GM (FLONASE) NARES SCH ×2 (09:00→20:38)
[2022-10-09] MEDS: LIDOCAINE 5% (LIDODERM) PATCH TD SCH (09:15)
[2022-10-09] MEDS: ACETAMINOPHEN 500 MG TAB PO SCH ×3 (09:16→20:38)
[2022-10-09] MEDS: GABAPENTIN 100 MG CAP PO SCH ×3 (09:16→20:38)
[2022-10-09] MEDS: ASPIRIN 81MG ENTERIC TABLET PO SCH (09:16)
[2022-10-09] MEDS: MAGNESIUM OXIDE 400MG TAB (MAG-OX) PO SCH (09:16)
[2022-10-09] MEDS: DOCUSATE SODIUM 100MG CAPSULE PO SCH ×2 (09:16→20:38)
[2022-10-09] MEDS: PANTOPRAZOLE 40MG TAB (PROTONIX) PO SCH (09:16)
[2022-10-09] MEDS: ENOXAPARIN 40MG/0.4ML SYRINGE (J1650 PER 10MG) SC SCH (09:17)
[2022-10-09 14:00] VITALS: BP_SYST 118; BP_SYST 122; BP_DIAS 80; BP_DIAS 82
[2022-10-09 20:00] VITALS: BP 122/68
[2022-10-09] MEDS: traZODone 25MG PER 1/2 TABLET PO SCH (20:37)
[2022-10-09] MEDS: SENNA 8.6 MG TAB (SENOKOT) PO SCH (20:37)
[2022-10-09] MEDS: PARoxetine 10MG TABLET PO SCH (20:38)
[2022-10-10] MEDS: CEPHALEXIN 500 MG CAP PO SCH ×4 (01:05→17:06)
[2022-10-10 06:00] VITALS: BP 124/61
[2022-10-10 06:38] LABS: BASO # 0.1 10^3/uL (0.0-0.2); BASO % 0.7 % (0.0-1.0); EOS # 0.3 10^3/uL (0.0-0.5); EOS % 3.8 % (0.0-3.0); HEMATOCRIT 31.7 % (36.0-47.0); HEMOGLOBIN 9.8 g/dl (12.0-15.5); LYMPH # 1.7 10^3/uL (1.5-5.0); LYMPH % 23.3 % (24.0-44.0); MEAN CORPUSCULAR HEMOGLOBIN 30.6 pg (27.0-33.0); MEAN CORPUSCULAR HGB CONC 30.9 g/dl (32.0-36.5); MEAN CORPUSCULAR VOLUME 99.1 fl (80.0-96.0); MONO # 0.6 10^3/uL (0.0-0.8); MONO % 8.6 % (2.0-8.0); NEUTROPHILS # 4.6 10^3/uL (1.5-8.5); NEUTROPHILS % 62.5 % (36.0-66.0); PLATELET COUNT, AUTOMATED 746 10^3/uL (150-450); WHITE BLOOD COUNT 7.4 10^3/uL (4.0-10.0)
[2022-10-10] MEDS: oxyCODONE 5MG TAB PO SCH ×3 (06:49→11:55)
[2022-10-10 07:01] LABS: BLOOD UREA NITROGEN 18 MG/DL (9-23); CALCIUM LEVEL 8.6 MG/DL (8.3-10.6); CARBON DIOXIDE LEVEL 30 MMOL/L (20-31); CHLORIDE LEVEL 105 MMOL/L (98-107); CREATININE FOR GFR 0.45 MG/DL (0.55-1.30); GLOMERULAR FILTRATION RATE > 60.0 (>32); GLUCOSE, FASTING 81 MG/DL (74-106); POTASSIUM SERUM 4.7 MMOL/L (3.5-5.1); SODIUM LEVEL 141 MMOL/L (136-145)
[2022-10-10] MEDS: SODIUM CHLORIDE NASAL 0.65% SPRAY BTL (OCEAN) SCH ×3 (09:00→19:49)
[2022-10-10] MEDS: FLUTICASONE PROP 0.05% NASAL SPRAY 16 GM (FLONASE) NARES SCH ×2 (09:00→19:49)
[2022-10-10] MEDS: REMEDY PHYTOPLEX Z-GUARD PASTE 113GM TUBE (FROM STOREROOM PRODUCT) TOP SCH ×3 (09:00→19:49)
[2022-10-10] MEDS: MAGNESIUM OXIDE 400MG TAB (MAG-OX) PO SCH (09:10)
[2022-10-10] MEDS: ENOXAPARIN 40MG/0.4ML SYRINGE (J1650 PER 10MG) SC SCH (09:10)
[2022-10-10] MEDS: DOCUSATE SODIUM 100MG CAPSULE PO SCH ×2 (09:10→19:47)
[2022-10-10] MEDS: LACTOBACILLUS ACIDOPHILUS CAP (BACID) PO SCH ×2 (09:10→17:06)
[2022-10-10] MEDS: GABAPENTIN 100 MG CAP PO SCH ×3 (09:10→19:48)
[2022-10-10] MEDS: PANTOPRAZOLE 40MG TAB (PROTONIX) PO SCH (09:11)
[2022-10-10] MEDS: ASPIRIN 81MG ENTERIC TABLET PO SCH (09:11)
[2022-10-10] MEDS: ACETAMINOPHEN 500 MG TAB PO SCH ×3 (09:11→19:48)
[2022-10-10] MEDS: LIDOCAINE 5% (LIDODERM) PATCH TD SCH (09:12)
[2022-10-10] MEDS ORDERED: MIRALAX *UNIT DOSE* 17GM PACKET PO SCH (16:40)
[2022-10-10] MEDS: SENNA 8.6 MG TAB (SENOKOT) PO SCH (19:47)
[2022-10-10] MEDS: PARoxetine 10MG TABLET PO SCH (19:48)
[2022-10-10] MEDS: traZODone 25MG PER 1/2 TABLET PO SCH (19:48)
[2022-10-10 20:00] VITALS: BP 104/59
[2022-10-11] MEDS: CEPHALEXIN 500 MG CAP PO SCH ×2 (00:19→05:17)
[2022-10-11 06:00] VITALS: BP 115/57
[2022-10-11] MEDS: SODIUM CHLORIDE NASAL 0.65% SPRAY BTL (OCEAN) SCH (09:00)
[2022-10-11] MEDS: REMEDY PHYTOPLEX Z-GUARD PASTE 113GM TUBE (FROM STOREROOM PRODUCT) TOP SCH (09:00)
[2022-10-11] MEDS: FLUTICASONE PROP 0.05% NASAL SPRAY 16 GM (FLONASE) NARES SCH (09:00)
[2022-10-11] MEDS ORDERED: MIRALAX *UNIT DOSE* 17GM PACKET PO SCH (09:00)
[2022-10-11] MEDS: ASPIRIN 81MG ENTERIC TABLET PO SCH (09:18)
[2022-10-11] MEDS: PANTOPRAZOLE 40MG TAB (PROTONIX) PO SCH (09:18)
[2022-10-11] MEDS: GABAPENTIN 100 MG CAP PO SCH (09:18)
[2022-10-11] MEDS: DOCUSATE SODIUM 100MG CAPSULE PO SCH (09:18)
[2022-10-11] MEDS: MAGNESIUM OXIDE 400MG TAB (MAG-OX) PO SCH (09:19)
[2022-10-11] MEDS: ENOXAPARIN 40MG/0.4ML SYRINGE (J1650 PER 10MG) SC SCH (09:19)
[2022-10-11] MEDS: LIDOCAINE 5% (LIDODERM) PATCH TD SCH (09:20)
[2022-10-11] MEDS: LACTOBACILLUS ACIDOPHILUS CAP (BACID) PO SCH (09:24)
[2022-10-11] MEDS: oxyCODONE 5MG TAB PO SCH (09:24)
[2022-10-11] MEDS: ACETAMINOPHEN 500 MG TAB PO SCH (09:25)
[2022-10-11] MEDS ORDERED: LIDO5TD TD (09:49)
[2022-10-11] MEDS ORDERED: GABA-1171 PO (09:49)
[2022-10-11] MEDS ORDERED: SENN18TA PO (09:49)
[2022-10-11] MEDS ORDERED: TRAZ-252 PO (09:49)
[2022-10-11] MEDS ORDERED: COLA100C5 PO (09:49)
[2022-10-11] MEDS ORDERED: PANT40TA29 PO (09:49)
[2022-10-11] MEDS ORDERED: MIRA1POW3 PO (09:49)
== END 2022-10-11 11:45 | DRG 560 ==
LOC: M PM&R 14:00
PROVIDERS: ADMIT Physical Medicine & Rehabilitation; ATTEND Physical Medicine & Rehabilitation
DX: S72.142D Displaced intertrochanteric fracture of left femur, subsequent encounter for closed fracture with routine healing (principal); T81.42XA Infection following a procedure, deep incisional surgical site, initial encounter; I25.2 Old myocardial infarction; E78.5 Hyperlipidemia, unspecified; I25.10 Atherosclerotic heart disease of native coronary artery without angina pectoris; R33.9 Retention of urine, unspecified; D72.829 Elevated white blood cell count, unspecified; G47.00 Insomnia, unspecified; F41.8 Other specified anxiety disorders; Z74.09 Other reduced mobility; Z74.1 Need for assistance with personal care; Z95.5 Presence of coronary angioplasty implant and graft; Z96.643 Presence of artificial hip joint, bilateral; Z90.49 Acquired absence of other specified parts of digestive tract; Z87.891 Personal history of nicotine dependence; Z79.82 Long term (current) use of aspirin; Z79.899 Other long term (current) drug therapy; Z88.8 Allergy status to other drugs, medicaments and biological substances; Z66 Do not resuscitate; J34.89 Other specified disorders of nose and nasal sinuses

== ENCOUNTER → 2022-10-15 | Outpatient (REF) ==
[~2022-10-15] MED LIST changes: +GABA-1171 PO; +LIDO5TD TD; +MIRA1POW3 PO; +MORP2INJ4 IV; +PANT40TA29 PO; +PERCOCET PO; +SENN18TA PO; +TRAZ-252 PO
[2022-10-15 10:23] LABS: HEMATOCRIT 33.7 % (36.0-47.0); HEMOGLOBIN 10.5 g/dl (12.0-15.5); MEAN CORPUSCULAR HEMOGLOBIN 30.8 pg (27.0-33.0); MEAN CORPUSCULAR HGB CONC 31.2 g/dl (32.0-36.5); MEAN CORPUSCULAR VOLUME 98.8 fl (80.0-96.0); PLATELET COUNT, AUTOMATED 719 10^3/uL (150-450); RED BLOOD COUNT 3.41 10^6/uL (4.00-5.40); WHITE BLOOD COUNT 7.8 10^3/uL (4.0-10.0)
== END ==
PROVIDERS: ATTEND Physician Assistant
DX: K92.2 Gastrointestinal hemorrhage, unspecified (principal)

== ENCOUNTER → 2022-10-22 | Outpatient (CLI) | payer MEDICARE, OTHER | LOC: M SOG 08:21 | PROVIDERS: ATTEND Physician Assistant | DX: Z47.89 Encounter for other orthopedic aftercare (principal) ==

== ENCOUNTER → 2022-10-22 | Outpatient (REF) ==
[2022-10-22 12:30] LABS: BLOOD UREA NITROGEN 19 MG/DL (9-23); CARBON DIOXIDE LEVEL 28 MMOL/L (20-31); CHLORIDE LEVEL 107 MMOL/L (98-107); CREATININE FOR GFR 0.46 MG/DL (0.55-1.30); GLOMERULAR FILTRATION RATE > 60.0 (>32); GLUCOSE, FASTING 73 MG/DL (74-106); SODIUM LEVEL 142 MMOL/L (136-145)
[2022-10-22 12:42] LABS: HEMATOCRIT 37.5 % (36.0-47.0); HEMOGLOBIN 11.4 g/dl (12.0-15.5); MEAN CORPUSCULAR HEMOGLOBIN 30.2 pg (27.0-33.0); MEAN CORPUSCULAR HGB CONC 30.4 g/dl (32.0-36.5); MEAN CORPUSCULAR VOLUME 99.5 fl (80.0-96.0); PLATELET COUNT, AUTOMATED 542 10^3/uL (150-450); RED BLOOD COUNT 3.77 10^6/uL (4.00-5.40); WHITE BLOOD COUNT 8.2 10^3/uL (4.0-10.0)
== END ==
PROVIDERS: ATTEND Physician Assistant
DX: K92.2 Gastrointestinal hemorrhage, unspecified (principal)

== ENCOUNTER → 2022-11-14 | Outpatient (REF) ==
[2022-11-14 11:02] LABS: HEMOGLOBIN 12.7 g/dl (12.0-15.5); MEAN CORPUSCULAR HEMOGLOBIN 30.1 pg (27.0-33.0); MEAN CORPUSCULAR VOLUME 97.2 fl (80.0-96.0); PLATELET COUNT, AUTOMATED 358 10^3/uL (150-450); RED BLOOD COUNT 4.22 10^6/uL (4.00-5.40); WHITE BLOOD COUNT 8.7 10^3/uL (4.0-10.0)
[2022-11-14 11:39] LABS: BLOOD UREA NITROGEN 25 MG/DL (9-23); CALCIUM LEVEL 8.7 MG/DL (8.3-10.6); CARBON DIOXIDE LEVEL 26 MMOL/L (20-31); CHLORIDE LEVEL 109 MMOL/L (98-107); CREATININE FOR GFR 0.58 MG/DL (0.55-1.30); GLOMERULAR FILTRATION RATE > 60.0 (>32); GLUCOSE, FASTING 68 MG/DL (74-106); POTASSIUM SERUM 3.4 MMOL/L (3.5-5.1); SODIUM LEVEL 144 MMOL/L (136-145)
== END ==
PROVIDERS: ATTEND Physician Assistant
DX: E78.5 Hyperlipidemia, unspecified (principal)

== ENCOUNTER → 2022-11-30 | Outpatient (REF) | payer MEDICARE, OTHER ==
[2022-11-30 08:57] LABS: HEMATOCRIT 42.2 % (36.0-47.0); HEMOGLOBIN 13.2 g/dl (12.0-15.5); MEAN CORPUSCULAR HEMOGLOBIN 29.7 pg (27.0-33.0); MEAN CORPUSCULAR HGB CONC 31.3 g/dl (32.0-36.5); MEAN CORPUSCULAR VOLUME 94.8 fl (80.0-96.0); PLATELET COUNT, AUTOMATED 382 10^3/uL (150-450); RED BLOOD COUNT 4.45 10^6/uL (4.00-5.40); WHITE BLOOD COUNT 6.5 10^3/uL (4.0-10.0)
[2022-11-30 09:35] LABS: ALBUMIN 3.6 G/DL (3.2-5.2); ALKALINE PHOSPHATASE 117 U/L (46-116); ALT/SGPT 30 U/L (7.0-40); AST/SGOT 30 U/L (<34); BILIRUBIN,TOTAL 0.4 MG/DL (0.3-1.2); BLOOD UREA NITROGEN 17 MG/DL (9-23); CARBON DIOXIDE LEVEL 28 MMOL/L (20-31); CHLORIDE LEVEL 107 MMOL/L (98-107); CREATININE FOR GFR 0.49 MG/DL (0.55-1.30); GLOMERULAR FILTRATION RATE > 60.0 (>32); GLUCOSE, FASTING 110 MG/DL (74-106); POTASSIUM SERUM 4.1 MMOL/L (3.5-5.1); SODIUM LEVEL 143 MMOL/L (136-145); TOTAL PROTEIN 6.7 G/DL (5.7-8.2)
[2022-11-30 09:37] LABS: FREE T4 1.18 NG/DL (0.89-1.76); THYROID STIMULATING HORMONE 2.052 uIU/ML (0.55-4.78); TOTAL 25(OH) VITAMIN D 31.1 NG/ML (20.0-100.0)
== END ==
PROVIDERS: ATTEND Family Medicine
DX: R60.9 Edema, unspecified (principal); Z79.899 Other long term (current) drug therapy

== ENCOUNTER → 2022-12-24 | Outpatient (CLI) | payer MEDICARE, OTHER | LOC: M SOG 10:07 | PROVIDERS: ATTEND Physician Assistant | DX: S72.142D Displaced intertrochanteric fracture of left femur, subsequent encounter for closed fracture with routine healing (principal); Z98.890 Other specified postprocedural states ==

== ENCOUNTER 2022-12-30 12:46 | Emergency (ER) | payer MEDICARE, OTHER ==
[~2022-12-30] VITALS: Ht 157.5 cm; Wt 52.7 kg
[2022-12-30 14:48] VITALS: BP 123/65
== END 2022-12-30 15:10 | disposition home or self-care (01) ==
LOC: EDBD 12:46 → M ED 12:46
DX: S70.01XA Contusion of right hip, initial encounter (principal); W01.198A Fall on same level from slipping, tripping and stumbling with subsequent striking against other object, initial encounter; Y92.009 Unspecified place in unspecified non-institutional (private) residence as the place of occurrence of the external cause; Y93.01 Activity, walking, marching and hiking; Y99.8 Other external cause status; I25.2 Old myocardial infarction; E78.5 Hyperlipidemia, unspecified; Z88.8 Allergy status to other drugs, medicaments and biological substances; Z79.899 Other long term (current) drug therapy; Z79.82 Long term (current) use of aspirin

== ENCOUNTER → 2023-01-03 | Outpatient (CLI) | payer MEDICARE, OTHER ==
[~2023-01-03] MED LIST changes: +SENN-111 PO; -SENN18TA PO
== END ==
LOC: M CLY 14:14
PROVIDERS: ATTEND Family Medicine
DX: M51.36 Other intervertebral disc degeneration, lumbar region (principal); M51.37 Other intervertebral disc degeneration, lumbosacral region

== ENCOUNTER → 2023-01-03 | Outpatient (REF) | payer MEDICARE, OTHER ==
[2023-01-03 17:18] LABS: HEMATOCRIT 42.9 % (36.0-47.0); HEMOGLOBIN 13.8 g/dl (12.0-15.5); MEAN CORPUSCULAR HEMOGLOBIN 29.7 pg (27.0-33.0); MEAN CORPUSCULAR HGB CONC 32.2 g/dl (32.0-36.5); MEAN CORPUSCULAR VOLUME 92.3 fl (80.0-96.0); PLATELET COUNT, AUTOMATED 387 10^3/uL (150-450); RED BLOOD COUNT 4.65 10^6/uL (4.00-5.40); WHITE BLOOD COUNT 7.8 10^3/uL (4.0-10.0)
[2023-01-03 17:48] LABS: ALBUMIN 3.5 G/DL (3.2-5.2); ALKALINE PHOSPHATASE 109 U/L (46-116); ALT/SGPT 42 U/L (7.0-40); AST/SGOT 31 U/L (<34); BILIRUBIN,TOTAL 0.3 MG/DL (0.3-1.2); BLOOD UREA NITROGEN 22 MG/DL (9-23); CALCIUM LEVEL 9.7 MG/DL (8.3-10.6); CARBON DIOXIDE LEVEL 28 MMOL/L (20-31); CHLORIDE LEVEL 106 MMOL/L (98-107); CREATININE FOR GFR 0.48 MG/DL (0.55-1.30); FREE T4 1.24 NG/DL (0.89-1.76); GLOMERULAR FILTRATION RATE > 60.0 (>32); GLUCOSE, FASTING 103 MG/DL (74-106); POTASSIUM SERUM 4.2 MMOL/L (3.5-5.1); SODIUM LEVEL 141 MMOL/L (136-145); THYROID STIMULATING HORMONE 1.352 uIU/ML (0.55-4.78); TOTAL 25(OH) VITAMIN D 44.7 NG/ML (20.0-100.0); TOTAL PROTEIN 6.9 G/DL (5.7-8.2)
== END ==
LOC: M SFHCCLAY 13:53
PROVIDERS: ATTEND Family Medicine
DX: R60.9 Edema, unspecified (principal); Z79.899 Other long term (current) drug therapy

== ENCOUNTER 2023-03-11 21:15 | Inpatient (IN) | payer MEDICARE, OTHER ==
[~2023-03-11] VITALS: Ht 157.5 cm; Wt 50.9 kg
[2023-03-11 22:24] LABS: BASO % 0.6 % (0.0-1.0); EOS # 0.2 10^3/uL (0.0-0.5); EOS % 2.5 % (0.0-3.0); HEMATOCRIT 39.2 % (36.0-47.0); HEMOGLOBIN 12.5 g/dl (12.0-15.5); LYMPH # 2.1 10^3/uL (1.5-5.0); LYMPH % 30.6 % (24.0-44.0); MEAN CORPUSCULAR HEMOGLOBIN 29.9 pg (27.0-33.0); MEAN CORPUSCULAR HGB CONC 31.9 g/dl (32.0-36.5); MEAN CORPUSCULAR VOLUME 93.8 fl (80.0-96.0); MONO # 0.8 10^3/uL (0.0-0.8); MONO % 11.3 % (2.0-8.0); NEUTROPHILS # 3.7 10^3/uL (1.5-8.5); NEUTROPHILS % 54.6 % (36.0-66.0); PLATELET COUNT, AUTOMATED 363 10^3/uL (150-450); RED BLOOD COUNT 4.18 10^6/uL (4.00-5.40); WHITE BLOOD COUNT 6.8 10^3/uL (4.0-10.0)
[2023-03-11 22:32] LABS: ALBUMIN 3.6 G/DL (3.2-5.2); ALKALINE PHOSPHATASE 90 U/L (46-116); ALT/SGPT 44 U/L (7.0-40); AST/SGOT 30 U/L (<34); BILIRUBIN,TOTAL 0.4 MG/DL (0.3-1.2); BLOOD UREA NITROGEN 25 MG/DL (9-23); CARBON DIOXIDE LEVEL 28 MMOL/L (20-31); CHLORIDE LEVEL 107 MMOL/L (98-107); CREATININE FOR GFR 0.41 MG/DL (0.55-1.30); GLOMERULAR FILTRATION RATE > 60.0 (>32); GLUCOSE, FASTING 107 MG/DL (74-106); POTASSIUM SERUM 3.1 MMOL/L (3.5-5.1); SODIUM LEVEL 144 MMOL/L (136-145); TOTAL PROTEIN 6.5 G/DL (5.7-8.2)
[2023-03-11] MEDS ORDERED: MORPHINE 2 MG/ML 1ML VIAL IV ONE (22:45)
[2023-03-11] MEDS ORDERED: VITMTA PO (23:39)
[2023-03-11] MEDS ORDERED: DICL20GE TOP (23:39)
[2023-03-11] MEDS ORDERED: MIRA1POW3 PO (23:39)
[2023-03-11] MEDS ORDERED: ENSU1LIQ PO (23:39)
[2023-03-11] MEDS ORDERED: MILKSUS3 PO (23:39)
[2023-03-11] MEDS ORDERED: VITA100093 PO (23:39)
[2023-03-11] MEDS ORDERED: ACET-897 PO (23:39)
[2023-03-11] MEDS ORDERED: ERGO500029 PO (23:39)
[2023-03-11] MEDS ORDERED: PARO10TA3 PO (23:39)
[2023-03-11] MEDS ORDERED: VIAC1CHW PO (23:39)
[2023-03-11] MEDS ORDERED: CALC20SPR ×2 (23:39)
[2023-03-11] MEDS ORDERED: PANT40TA29 PO (23:39)
[2023-03-11] MEDS ORDERED: SENN1TAB41 PO (23:39)
[2023-03-11] MEDS ORDERED: MELA3TAB30 PO (23:39)
[2023-03-11] MEDS ORDERED: DICL100G10 TOP (23:47)
[2023-03-11] MEDS ORDERED: HOME MED LIST COMPLETE! XX SCH (23:50)
[2023-03-11 23:52] LABS: INR 0.92; PROTHROMBIN TIME 12.6 SECONDS (12.5-14.5)
[2023-03-11 23:53] LABS: PARTIAL THROMBOPLASTIN TIME 26.8 SECONDS (24.8-34.2)
[2023-03-12] VITALS (7 sets, daily range): BP systolic 98–146; BP diastolic 50–110; TEMP 97.2–98.4; O2SAT 89–94
[2023-03-12 00:06] LABS: RSV AMPLIFICATION NEGATIVE (NEGATIVE)
[2023-03-12] MEDS ORDERED: SENOKOT S TAB PO PRN (01:15)
[2023-03-12] MEDS ORDERED: ONDANSETRON 4MG 2ML VIAL IV PRN ×2 (01:15→17:30)
[2023-03-12] MEDS: HYDROMORPHONE HCL 0.5 MG/ 0.5 ML SYRINGE IV PRN ×3 (03:18→12:34)
[2023-03-12] MEDS: KCL 10MEQ/100ML SWI (KRUN) 10 MEQ in IV 1 EA IV SCH ×3 (03:20→04:21)
[2023-03-12] MEDS: LR 1,000 ML IV SCH ×3 (04:49→20:19)
[2023-03-12 06:21] LABS: BLOOD UREA NITROGEN 22 MG/DL (9-23); CALCIUM LEVEL 8.3 MG/DL (8.3-10.6); CARBON DIOXIDE LEVEL 26 MMOL/L (20-31); CHLORIDE LEVEL 107 MMOL/L (98-107); CREATININE FOR GFR 0.34 MG/DL (0.55-1.30); GLOMERULAR FILTRATION RATE > 60.0 (>32); GLUCOSE, FASTING 117 MG/DL (74-106); POTASSIUM SERUM 3.7 MMOL/L (3.5-5.1); SODIUM LEVEL 143 MMOL/L (136-145)
[2023-03-12] MEDS: DOCUSATE SODIUM 100MG CAPSULE PO SCH ×2 (08:08→20:18)
[2023-03-12] MEDS: PANTOPRAZOLE 40MG TAB (PROTONIX) PO SCH (08:08)
[2023-03-12] MEDS: MULTIVITAMINS/MINERALS THERAP 1 TAB PO SCH (09:00)
[2023-03-12] MEDS: ASPIRIN 81MG ENTERIC TABLET PO SCH (09:00)
[2023-03-12] MEDS ORDERED: MIRALAX *UNIT DOSE* 17GM PACKET PO PRN (11:05)
[2023-03-12] MEDS: VITAMIN D 1,000 INTERNATIONAL UNITS TABLET PO SCH (11:24)
[2023-03-12] MEDS: CALCITONIN NASAL SPRAY 3.7ML BTL SCH (12:18)
[2023-03-12] MEDS ORDERED: LIDOCAINE 2% 100MG/5ML SDV (FOR ANES.) As Ordered ONE (13:35)
[2023-03-12] MEDS ORDERED: KETAMINE HCL 200MG/20ML VIAL As Ordered ONE (13:35)
[2023-03-12] MEDS ORDERED: propofoL 200 MG/20 ML VIAL As Ordered ONE (13:35)
[2023-03-12] MEDS ORDERED: ceFAZolin 1GM VIAL As Ordered ONE (16:02)
[2023-03-12] MEDS ORDERED: PHENYLEPHRINE 10MG/ML 1ML VIAL As Ordered ONE (16:12)
[2023-03-12] MEDS ORDERED: VASOPRESSIN INJ 20UNITS/ML 1ML VIAL As Ordered ONE (17:00)
[2023-03-12] MEDS ORDERED: fentaNYL 100 MCG/2 ML INJECTION IV PRN (17:30)
[2023-03-12] MEDS ORDERED: oxyCODONE 5MG TAB PO PRN (17:30)
[2023-03-12] MEDS ORDERED: LR 1,000 ML IV SCH (17:30)
[2023-03-12] MEDS ORDERED: HYDROMORPHONE HCL 0.5 MG/ 0.5 ML SYRINGE IV PRN (17:30)
[2023-03-12] MEDS ORDERED: ACETAMINOPHEN 1000MG 100ML IV BAG As Ordered ONE (17:34)
[2023-03-12] MEDS: HEPARIN SOD (PORCINE) 5000UNITS/ML 1ML VIAL/SYRINGE SC SCH (20:18)
[2023-03-12] MEDS ORDERED: PARoxetine 10MG TABLET PO SCH (21:00)
[2023-03-12] MEDS ORDERED: RAMELTEON 8 MG TAB (ROZEREM) PO PRN (21:25)
[2023-03-12] MEDS: ceFAZolin SOD 2 GM in IV 1 EA IV SCH (23:23)
[2023-03-13] MEDS: HYDROMORPHONE HCL 0.5 MG/ 0.5 ML SYRINGE IV PRN ×2 (00:31→11:30)
[2023-03-13 01:56] VITALS: BP 99/59; TEMP 98.1; O2SAT 92
[2023-03-13 05:17] VITALS: BP 97/57; TEMP 97.7; O2SAT 89
[2023-03-13] MEDS: LR 1,000 ML IV SCH (06:18)
[2023-03-13] MEDS: ceFAZolin SOD 2 GM in IV 1 EA IV SCH (08:58)
[2023-03-13] MEDS: MULTIVITAMINS/MINERALS THERAP 1 TAB PO SCH (08:59)
[2023-03-13] MEDS: VITAMIN D 1,000 INTERNATIONAL UNITS TABLET PO SCH (08:59)
[2023-03-13] MEDS: ASPIRIN 81MG ENTERIC TABLET PO SCH (08:59)
[2023-03-13] MEDS: HEPARIN SOD (PORCINE) 5000UNITS/ML 1ML VIAL/SYRINGE SC SCH (08:59)
[2023-03-13] MEDS: PANTOPRAZOLE 40MG TAB (PROTONIX) PO SCH (08:59)
[2023-03-13] MEDS: DOCUSATE SODIUM 100MG CAPSULE PO SCH (08:59)
[2023-03-13] MEDS: CALCITONIN NASAL SPRAY 3.7ML BTL SCH (09:00)
[2023-03-13 13:36] VITALS: BP 113/56; TEMP 98.2; O2SAT 90
== END 2023-03-13 14:50 | DRG 482 ==
LOC: M ED 21:15 → M ED INP 23:46 → M MS5PR 03-12 02:45
PROVIDERS: ADMIT Internal Medicine; ATTEND Internal Medicine
PROC: 0QP Lower Bones, Removal (ICD-10-PCS; 2023-03-12)
PROC: BQ14ZZZ Fluoroscopy of Left Femur (ICD-10-PCS; 2023-03-12)
PROC: 0QS734Z Reposition Left Upper Femur with Internal Fixation Device, Percutaneous Approach (ICD-10-PCS; principal; 2023-03-12 14:00)
DX: S72.302A Unspecified fracture of shaft of left femur, initial encounter for closed fracture (principal); K21.9 Gastro-esophageal reflux disease without esophagitis; M81.0 Age-related osteoporosis without current pathological fracture; K59.00 Constipation, unspecified; F39 Unspecified mood [affective] disorder; I25.10 Atherosclerotic heart disease of native coronary artery without angina pectoris; Z95.5 Presence of coronary angioplasty implant and graft; Z90.49 Acquired absence of other specified parts of digestive tract; Z79.82 Long term (current) use of aspirin; Z79.899 Other long term (current) drug therapy; Z88.8 Allergy status to other drugs, medicaments and biological substances; X58.XXXA Exposure to other specified factors, initial encounter; Y92.009 Unspecified place in unspecified non-institutional (private) residence as the place of occurrence of the external cause; E87.6 Hypokalemia; Z20.822 Contact with and (suspected) exposure to COVID-19; Z66 Do not resuscitate; Z96.652 Presence of left artificial knee joint

== ENCOUNTER 2023-03-13 11:19 | Inpatient (IN) | payer MEDICARE, OTHER, MEDICAID ==
[~2023-03-13] VITALS: Ht 157.5 cm; Wt 53.5 kg
[~2023-03-13 11:19] MED LIST changes: +CALC20SPR; +DICL100G10 TOP; +DICL20GE TOP; +ENSU1LIQ PO; +ERGO500029 PO; +MELA3TAB30 PO; +MILKSUS3 PO; +SENN1TAB41 PO; +VIAC1CHW PO; +VITMTA PO
[2023-03-13 15:00] VITALS: BP 115/57; TEMP 97.8; O2SAT 92
[2023-03-13] MEDS ORDERED: RAMELTEON 8 MG TAB (ROZEREM) PO PRN (16:30)
[2023-03-13] MEDS ORDERED: BISACODYL 10MG SUPP PR PRN (16:30)
[2023-03-13] MEDS ORDERED: ceFAZolin SOD 2 GM in IV 1 EA IV ONE (17:00)
[2023-03-13] MEDS: oxyCODONE 5MG TAB PO PRN (17:31)
[2023-03-13] MEDS: SENNA 8.6 MG TAB (SENOKOT) PO SCH (19:39)
[2023-03-13] MEDS: DOCUSATE SODIUM 100MG CAPSULE PO SCH (19:39)
[2023-03-13 20:00] VITALS: BP 118/58; TEMP 98.2; O2SAT 96
[2023-03-13] MEDS: PARoxetine 10MG TABLET PO SCH (20:32)
[2023-03-13] MEDS: PANTOPRAZOLE 40MG TAB (PROTONIX) PO SCH (20:32)
[2023-03-13] MEDS: ACETAMINOPHEN 500 MG TAB PO SCH (20:33)
[2023-03-13] MEDS: HEPARIN SOD (PORCINE) 5000UNITS/ML 1ML VIAL/SYRINGE SC SCH (20:33)
[2023-03-14] VITALS (7 sets, daily range): BP systolic 101–133; BP diastolic 51–60; TEMP 97.2–98.7; O2SAT 94–95
[2023-03-14 06:55] LABS: BASO % 0.2 % (0.0-1.0); EOS # 0.1 10^3/uL (0.0-0.5); EOS % 1.1 % (0.0-3.0); LYMPH # 1.5 10^3/uL (1.5-5.0); LYMPH % 16.3 % (24.0-44.0); MEAN CORPUSCULAR HEMOGLOBIN 30.7 pg (27.0-33.0); MEAN CORPUSCULAR HGB CONC 32.8 g/dl (32.0-36.5); MEAN CORPUSCULAR VOLUME 93.5 fl (80.0-96.0); MONO % 11.2 % (2.0-8.0); NEUTROPHILS # 6.5 10^3/uL (1.5-8.5); NEUTROPHILS % 70.5 % (36.0-66.0); PLATELET COUNT, AUTOMATED 205 10^3/uL (150-450); RED BLOOD COUNT 2.15 10^6/uL (4.00-5.40); WHITE BLOOD COUNT 9.2 10^3/uL (4.0-10.0)
[2023-03-14 07:01] LABS: HEMATOCRIT 20.1 % (36.0-47.0); HEMOGLOBIN 6.6 g/dl (12.0-15.5)
[2023-03-14 07:05] LABS: ALBUMIN 2.3 G/DL (3.2-5.2); ALKALINE PHOSPHATASE 63 U/L (46-116); ALT/SGPT 24 U/L (7.0-40); AST/SGOT 78 U/L (<34); BILIRUBIN,TOTAL 0.7 MG/DL (0.3-1.2); BLOOD UREA NITROGEN 16 MG/DL (9-23); CALCIUM LEVEL 7.6 MG/DL (8.3-10.6); CARBON DIOXIDE LEVEL 29 MMOL/L (20-31); CHLORIDE LEVEL 105 MMOL/L (98-107); CREATININE FOR GFR 0.36 MG/DL (0.55-1.30); GLOMERULAR FILTRATION RATE > 60.0 (>32); GLUCOSE, FASTING 105 MG/DL (74-106); POTASSIUM SERUM 3.2 MMOL/L (3.5-5.1); SODIUM LEVEL 141 MMOL/L (136-145); TOTAL PROTEIN 4.7 G/DL (5.7-8.2)
[2023-03-14] MEDS: DOCUSATE SODIUM 100MG CAPSULE PO SCH ×2 (07:46→19:20)
[2023-03-14] MEDS ORDERED: POTASSIUM CHLORIDE 10MEQ SR TABLET PO ONE ×2 (09:05→12:00)
[2023-03-14] MEDS: PANTOPRAZOLE 40MG TAB (PROTONIX) PO SCH ×2 (09:10→20:08)
[2023-03-14] MEDS: ASPIRIN 81MG ENTERIC TABLET PO SCH (09:10)
[2023-03-14] MEDS: VITAMIN D 1,000 INTERNATIONAL UNITS TABLET PO SCH (09:10)
[2023-03-14] MEDS: ACETAMINOPHEN 500 MG TAB PO SCH ×3 (09:11→20:09)
[2023-03-14] MEDS: HEPARIN SOD (PORCINE) 5000UNITS/ML 1ML VIAL/SYRINGE SC SCH (09:14)
[2023-03-14] MEDS: CALCITONIN NASAL SPRAY 3.7ML BTL SCH (09:19)
[2023-03-14 09:22] LABS: MAGNESIUM LEVEL 1.5 MG/DL (1.8-2.4)
[2023-03-14 09:24] LABS: HEMATOCRIT 20.2 % (36.0-47.0)
[2023-03-14 09:26] LABS: HEMOGLOBIN 6.6 g/dl (12.0-15.5)
[2023-03-14] MEDS: MAG SULF 1GM/100ML (MAG RUN) 1 GM in IV 1 EA IV SCH ×2 (10:21→12:00)
[2023-03-14] MEDS ORDERED: ACETAMINOPHEN TAB 650MG DOSE (2X325MG) PO ONE (11:00)
[2023-03-14] MEDS ORDERED: diphenhydrAMINE 25MG CAP PO ONE (11:00)
[2023-03-14 12:34] LABS: PROCALCITONIN 0.17 ng/ml
[2023-03-14] MEDS ORDERED: MAG SULF 1GM/100ML (MAG RUN) 1 GM in IV 1 EA IV ONE (15:30)
[2023-03-14 17:16] LABS: HEMOGLOBIN 9.7 g/dl (12.0-15.5)
[2023-03-14] MEDS: SENNA 8.6 MG TAB (SENOKOT) PO SCH (19:20)
[2023-03-14] MEDS: PARoxetine 10MG TABLET PO SCH (20:08)
[2023-03-14] MEDS: MAGNESIUM OXIDE 400MG TAB (MAG-OX) PO SCH (20:08)
[2023-03-15] MEDS: oxyCODONE 5MG TAB PO PRN (01:30)
[2023-03-15 06:00] VITALS: BP 140/73; TEMP 97.9; O2SAT 94
[2023-03-15 06:06] LABS: BASO % 0.2 % (0.0-1.0); EOS # 0.2 10^3/uL (0.0-0.5); EOS % 2.1 % (0.0-3.0); HEMATOCRIT 28.7 % (36.0-47.0); HEMOGLOBIN 9.6 g/dl (12.0-15.5); LYMPH # 1.2 10^3/uL (1.5-5.0); LYMPH % 14.5 % (24.0-44.0); MEAN CORPUSCULAR HEMOGLOBIN 30.2 pg (27.0-33.0); MEAN CORPUSCULAR HGB CONC 33.4 g/dl (32.0-36.5); MEAN CORPUSCULAR VOLUME 90.3 fl (80.0-96.0); MONO # 0.8 10^3/uL (0.0-0.8); NEUTROPHILS # 6.3 10^3/uL (1.5-8.5); NEUTROPHILS % 73.7 % (36.0-66.0); PLATELET COUNT, AUTOMATED 225 10^3/uL (150-450); RED BLOOD COUNT 3.18 10^6/uL (4.00-5.40); WHITE BLOOD COUNT 8.5 10^3/uL (4.0-10.0)
[2023-03-15 06:27] LABS: BLOOD UREA NITROGEN 20 MG/DL (9-23); CALCIUM LEVEL 7.6 MG/DL (8.3-10.6); CARBON DIOXIDE LEVEL 27 MMOL/L (20-31); CHLORIDE LEVEL 107 MMOL/L (98-107); CREATININE FOR GFR 0.37 MG/DL (0.55-1.30); GLOMERULAR FILTRATION RATE > 60.0 (>32); GLUCOSE, FASTING 99 MG/DL (74-106); POTASSIUM SERUM 3.6 MMOL/L (3.5-5.1); SODIUM LEVEL 143 MMOL/L (136-145)
[2023-03-15 08:23] LABS: CLOSTRIDIUM DIFFICILE PCR NEGATIVE (NEGATIVE)
[2023-03-15] MEDS: ASPIRIN 81MG ENTERIC TABLET PO SCH (09:00)
[2023-03-15] MEDS: ACETAMINOPHEN 500 MG TAB PO SCH (09:00)
[2023-03-15] MEDS: CALCITONIN NASAL SPRAY 3.7ML BTL SCH (09:00)
[2023-03-15] MEDS: VITAMIN D 1,000 INTERNATIONAL UNITS TABLET PO SCH (09:00)
[2023-03-15] MEDS: MAGNESIUM OXIDE 400MG TAB (MAG-OX) PO SCH (09:00)
[2023-03-15] MEDS: PANTOPRAZOLE 40MG TAB (PROTONIX) PO SCH (09:00)
[2023-03-15 09:31] LABS: MAGNESIUM LEVEL 1.8 MG/DL (1.8-2.4)
[2023-03-17] MEDS ORDERED: CRES10TA PO (11:57)
[2023-03-17] MEDS ORDERED: CLOP75TA2 PO (11:57)
[2023-03-17] MEDS ORDERED: METO1TAB32 PO ×2 (13:01→13:02)
[2023-03-17 18:44] VITALS: BP 138/63; TEMP 97.6; O2SAT 96
[2023-03-17] MEDS ORDERED: oxyCODONE 5MG TAB PO PRN (20:10)
[2023-03-17] MEDS ORDERED: PILL CUTTER 1 EACH XX PRN (20:35)
[2023-03-17] MEDS: PANTOPRAZOLE 40MG TAB (PROTONIX) PO SCH (21:55)
[2023-03-17] MEDS: ACETAMINOPHEN 500 MG TAB PO SCH (21:55)
[2023-03-17] MEDS: REMEDY PHYTOPLEX Z-GUARD PASTE 113GM TUBE (FROM STOREROOM PRODUCT) TOP SCH (21:55)
[2023-03-17] MEDS: SUCRALFATE 1 GM TAB PO SCH (21:55)
[2023-03-17] MEDS: HEPARIN SOD (PORCINE) 5000UNITS/ML 1ML VIAL/SYRINGE SQ SCH (21:55)
[2023-03-17] MEDS: ROSUVASTATIN 10 MG TAB (CRESTOR) PO SCH (21:55)
[2023-03-18 06:00] VITALS: BP 110/62; TEMP 98.3; O2SAT 95
[2023-03-18] MEDS: ASPIRIN 81MG ENTERIC TABLET PO SCH (08:30)
[2023-03-18] MEDS: ACETAMINOPHEN 500 MG TAB PO SCH ×3 (08:31→21:30)
[2023-03-18] MEDS: SUCRALFATE 1 GM TAB PO SCH ×4 (08:31→21:29)
[2023-03-18] MEDS: CLOPIDOGREL 75 MG TAB PO SCH (08:31)
[2023-03-18] MEDS: PANTOPRAZOLE 40MG TAB (PROTONIX) PO SCH ×2 (08:31→21:29)
[2023-03-18] MEDS: METOPROLOL SUCC *XL* 12.5MG PER 1/2 TAB (TopROL *XL*) PO SCH (08:32)
[2023-03-18] MEDS: HEPARIN SOD (PORCINE) 5000UNITS/ML 1ML VIAL/SYRINGE SQ SCH ×2 (08:33→21:30)
[2023-03-18] MEDS: REMEDY PHYTOPLEX Z-GUARD PASTE 113GM TUBE (FROM STOREROOM PRODUCT) TOP SCH ×3 (09:00→21:30)
[2023-03-18] MEDS ORDERED: MAGNESIUM OXIDE 400MG TAB (MAG-OX) PO ONE (11:00)
[2023-03-18 12:50] LABS: PERCENT SATURATION 11.1 % (13.2-45.0)
[2023-03-18 12:52] LABS: FERRITIN 119.8 NG/ML (7.3-270.7); FOLATE 23.47 NG/ML (>5.4)
[2023-03-18 14:00] VITALS: BP 114/61; TEMP 97.4; O2SAT 97
[2023-03-18 20:00] VITALS: BP 106/60; TEMP 98.1; O2SAT 95
[2023-03-18] MEDS: ROSUVASTATIN 10 MG TAB (CRESTOR) PO SCH (21:29)
[2023-03-19 06:00] VITALS: BP 146/77; TEMP 97; O2SAT 96
[2023-03-19] MEDS: REMEDY PHYTOPLEX Z-GUARD PASTE 113GM TUBE (FROM STOREROOM PRODUCT) TOP SCH ×3 (09:00→20:25)
[2023-03-19] MEDS: HEPARIN SOD (PORCINE) 5000UNITS/ML 1ML VIAL/SYRINGE SQ SCH ×2 (09:01→20:24)
[2023-03-19] MEDS: ACETAMINOPHEN 500 MG TAB PO SCH ×3 (09:02→20:24)
[2023-03-19] MEDS: PANTOPRAZOLE 40MG TAB (PROTONIX) PO SCH ×2 (09:02→20:24)
[2023-03-19] MEDS: ASPIRIN 81MG ENTERIC TABLET PO SCH (09:03)
[2023-03-19] MEDS: CLOPIDOGREL 75 MG TAB PO SCH (09:03)
[2023-03-19] MEDS: METOPROLOL SUCC *XL* 12.5MG PER 1/2 TAB (TopROL *XL*) PO SCH (09:03)
[2023-03-19] MEDS: SUCRALFATE 1 GM TAB PO SCH ×4 (09:15→20:24)
[2023-03-19 11:01] LABS: BASO # 0.1 10^3/uL (0.0-0.2); BASO % 0.6 % (0.0-1.0); EOS # 0.3 10^3/uL (0.0-0.5); EOS % 3.2 % (0.0-3.0); HEMATOCRIT 34.3 % (36.0-47.0); HEMOGLOBIN 10.8 g/dl (12.0-15.5); LYMPH # 1.4 10^3/uL (1.5-5.0); LYMPH % 16.1 % (24.0-44.0); MEAN CORPUSCULAR HEMOGLOBIN 29.8 pg (27.0-33.0); MEAN CORPUSCULAR HGB CONC 31.5 g/dl (32.0-36.5); MEAN CORPUSCULAR VOLUME 94.5 fl (80.0-96.0); MONO # 0.7 10^3/uL (0.0-0.8); MONO % 8.6 % (2.0-8.0); NEUTROPHILS # 5.9 10^3/uL (1.5-8.5); NEUTROPHILS % 70.2 % (36.0-66.0); PLATELET COUNT, AUTOMATED 475 10^3/uL (150-450); RED BLOOD COUNT 3.63 10^6/uL (4.00-5.40); WHITE BLOOD COUNT 8.4 10^3/uL (4.0-10.0)
[2023-03-19 11:33] LABS: BLOOD UREA NITROGEN 13 MG/DL (9-23); CALCIUM LEVEL 8.4 MG/DL (8.3-10.6); CARBON DIOXIDE LEVEL 28 MMOL/L (20-31); CHLORIDE LEVEL 107 MMOL/L (98-107); CREATININE FOR GFR 0.38 MG/DL (0.55-1.30); GLOMERULAR FILTRATION RATE > 60.0 (>32); GLUCOSE, FASTING 91 MG/DL (74-106); POTASSIUM SERUM 3.3 MMOL/L (3.5-5.1); SODIUM LEVEL 145 MMOL/L (136-145)
[2023-03-19] MEDS: FERROUS SULFATE 325MG TAB PO SCH ×2 (12:15→20:24)
[2023-03-19] MEDS: oxyCODONE 5MG TAB PO SCH (12:17)
[2023-03-19 14:00] VITALS: BP 103/65; TEMP 98.1; O2SAT 96
[2023-03-19] MEDS ORDERED: POTASSIUM CHLORIDE 10MEQ SR TABLET PO ONE ×2 (16:50→21:00)
[2023-03-19 20:00] VITALS: BP 104/57; TEMP 97.8; O2SAT 94
[2023-03-19] MEDS: ROSUVASTATIN 10 MG TAB (CRESTOR) PO SCH (20:25)
[2023-03-20 06:05] VITALS: BP 122/63; TEMP 97.2; O2SAT 97
[2023-03-20] MEDS: oxyCODONE 5MG TAB PO SCH ×2 (06:33→12:30)
[2023-03-20 07:37] LABS: BLOOD UREA NITROGEN 12 MG/DL (9-23); CALCIUM LEVEL 8.2 MG/DL (8.3-10.6); CARBON DIOXIDE LEVEL 26 MMOL/L (20-31); CHLORIDE LEVEL 110 MMOL/L (98-107); GLOMERULAR FILTRATION RATE > 60.0 (>32); GLUCOSE, FASTING 90 MG/DL (74-106); POTASSIUM SERUM 4.3 MMOL/L (3.5-5.1); SODIUM LEVEL 145 MMOL/L (136-145)
[2023-03-20] MEDS: FERROUS SULFATE 325MG TAB PO SCH ×2 (08:19→20:11)
[2023-03-20] MEDS: ASPIRIN 81MG ENTERIC TABLET PO SCH (08:19)
[2023-03-20] MEDS: SUCRALFATE 1 GM TAB PO SCH ×4 (08:19→20:10)
[2023-03-20] MEDS: HEPARIN SOD (PORCINE) 5000UNITS/ML 1ML VIAL/SYRINGE SQ SCH ×2 (08:19→20:10)
[2023-03-20] MEDS: ACETAMINOPHEN 500 MG TAB PO SCH ×3 (08:19→20:11)
[2023-03-20] MEDS: PANTOPRAZOLE 40MG TAB (PROTONIX) PO SCH ×2 (08:19→20:11)
[2023-03-20] MEDS: CLOPIDOGREL 75 MG TAB PO SCH (08:19)
[2023-03-20] MEDS: METOPROLOL SUCC *XL* 12.5MG PER 1/2 TAB (TopROL *XL*) PO SCH (08:20)
[2023-03-20] MEDS: REMEDY PHYTOPLEX Z-GUARD PASTE 113GM TUBE (FROM STOREROOM PRODUCT) TOP SCH ×3 (08:20→20:11)
[2023-03-20 14:00] VITALS: BP 101/59; TEMP 98.2; O2SAT 92
[2023-03-20 20:00] VITALS: BP 108/61; TEMP 96.9; O2SAT 92
[2023-03-20] MEDS: ROSUVASTATIN 10 MG TAB (CRESTOR) PO SCH (20:18)
[2023-03-21 06:00] VITALS: BP 145/69; TEMP 97.6; O2SAT 91
[2023-03-21] MEDS: oxyCODONE 5MG TAB PO SCH ×2 (06:44→12:25)
[2023-03-21] MEDS: CLOPIDOGREL 75 MG TAB PO SCH (08:30)
[2023-03-21] MEDS: FERROUS SULFATE 325MG TAB PO SCH ×2 (08:30→20:18)
[2023-03-21] MEDS: ACETAMINOPHEN 500 MG TAB PO SCH ×3 (08:30→20:18)
[2023-03-21] MEDS: PANTOPRAZOLE 40MG TAB (PROTONIX) PO SCH ×2 (08:30→20:18)
[2023-03-21] MEDS: SUCRALFATE 1 GM TAB PO SCH ×4 (08:30→20:18)
[2023-03-21] MEDS: HEPARIN SOD (PORCINE) 5000UNITS/ML 1ML VIAL/SYRINGE SQ SCH ×2 (08:30→20:17)
[2023-03-21] MEDS: ASPIRIN 81MG ENTERIC TABLET PO SCH (08:30)
[2023-03-21] MEDS: METOPROLOL SUCC *XL* 12.5MG PER 1/2 TAB (TopROL *XL*) PO SCH (08:31)
[2023-03-21] MEDS: REMEDY PHYTOPLEX Z-GUARD PASTE 113GM TUBE (FROM STOREROOM PRODUCT) TOP SCH ×3 (08:32→20:18)
[2023-03-21 14:00] VITALS: BP 105/55; TEMP 97.6; O2SAT 93
[2023-03-21 20:00] VITALS: BP 105/55; TEMP 98.1; O2SAT 100
[2023-03-21] MEDS: ROSUVASTATIN 10 MG TAB (CRESTOR) PO SCH (20:18)
[2023-03-22 05:43] LABS: BASO # 0.1 10^3/uL (0.0-0.2); BASO % 0.8 % (0.0-1.0); EOS # 0.4 10^3/uL (0.0-0.5); EOS % 5.1 % (0.0-3.0); HEMATOCRIT 30.4 % (36.0-47.0); HEMOGLOBIN 9.5 g/dl (12.0-15.5); LYMPH # 1.8 10^3/uL (1.5-5.0); LYMPH % 21.9 % (24.0-44.0); MEAN CORPUSCULAR HEMOGLOBIN 30.2 pg (27.0-33.0); MEAN CORPUSCULAR HGB CONC 31.3 g/dl (32.0-36.5); MEAN CORPUSCULAR VOLUME 96.5 fl (80.0-96.0); MONO # 0.8 10^3/uL (0.0-0.8); MONO % 9.5 % (2.0-8.0); NEUTROPHILS # 4.9 10^3/uL (1.5-8.5); NEUTROPHILS % 61.3 % (36.0-66.0); PLATELET COUNT, AUTOMATED 559 10^3/uL (150-450); RED BLOOD COUNT 3.15 10^6/uL (4.00-5.40)
[2023-03-22 06:00] VITALS: BP 123/60; TEMP 97.5; O2SAT 91
[2023-03-22 06:10] LABS: BLOOD UREA NITROGEN 16 MG/DL (9-23); CALCIUM LEVEL 8.3 MG/DL (8.3-10.6); CARBON DIOXIDE LEVEL 26 MMOL/L (20-31); CHLORIDE LEVEL 110 MMOL/L (98-107); GLOMERULAR FILTRATION RATE > 60.0 (>32); GLUCOSE, FASTING 87 MG/DL (74-106); POTASSIUM SERUM 3.4 MMOL/L (3.5-5.1); SODIUM LEVEL 144 MMOL/L (136-145)
[2023-03-22] MEDS: oxyCODONE 5MG TAB PO SCH ×2 (06:35→12:48)
[2023-03-22] MEDS: SUCRALFATE 1 GM TAB PO SCH ×4 (07:04→20:01)
[2023-03-22] MEDS ORDERED: POTASSIUM CHLORIDE 10MEQ SR TABLET PO ONE (08:30)
[2023-03-22] MEDS: ASPIRIN 81MG ENTERIC TABLET PO SCH (08:42)
[2023-03-22] MEDS: CLOPIDOGREL 75 MG TAB PO SCH (08:43)
[2023-03-22] MEDS: PANTOPRAZOLE 40MG TAB (PROTONIX) PO SCH ×2 (08:43→20:01)
[2023-03-22] MEDS: FERROUS SULFATE 325MG TAB PO SCH ×2 (08:43→20:01)
[2023-03-22] MEDS: ACETAMINOPHEN 500 MG TAB PO SCH ×3 (08:43→20:02)
[2023-03-22] MEDS: HEPARIN SOD (PORCINE) 5000UNITS/ML 1ML VIAL/SYRINGE SQ SCH ×2 (08:44→20:02)
[2023-03-22] MEDS: METOPROLOL SUCC *XL* 12.5MG PER 1/2 TAB (TopROL *XL*) PO SCH (08:44)
[2023-03-22] MEDS: REMEDY PHYTOPLEX Z-GUARD PASTE 113GM TUBE (FROM STOREROOM PRODUCT) TOP SCH ×3 (09:00→20:03)
[2023-03-22] MEDS: LACTOBACILLUS ACIDOPHILUS CAP (BACID) PO SCH ×2 (09:18→17:15)
[2023-03-22] MEDS: LevoFLOXacin 250 MG TABLET PO SCH (09:19)
[2023-03-22] MEDS: GABAPENTIN 100 MG CAP PO SCH ×3 (12:48→20:01)
[2023-03-22 14:00] VITALS: BP 107/58; TEMP 98; O2SAT 97
[2023-03-22] MEDS: LIDOCAINE 5% (LIDODERM) PATCH TD SCH (17:54)
[2023-03-22 19:33] VITALS: BP 106/56; TEMP 98.2; O2SAT 94
[2023-03-22] MEDS: ROSUVASTATIN 10 MG TAB (CRESTOR) PO SCH (20:01)
[2023-03-23] MEDS: LevoFLOXacin 250 MG TABLET PO SCH (05:53)
[2023-03-23 06:00] VITALS: BP 125/58; TEMP 98.2; O2SAT 94
[2023-03-23] MEDS: oxyCODONE 5MG TAB PO SCH ×2 (06:01→11:44)
[2023-03-23 07:23] LABS: BLOOD UREA NITROGEN 16 MG/DL (9-23); CALCIUM LEVEL 8.3 MG/DL (8.3-10.6); CARBON DIOXIDE LEVEL 27 MMOL/L (20-31); CHLORIDE LEVEL 108 MMOL/L (98-107); CREATININE FOR GFR 0.41 MG/DL (0.55-1.30); GLOMERULAR FILTRATION RATE > 60.0 (>32); GLUCOSE, FASTING 87 MG/DL (74-106); POTASSIUM SERUM 3.8 MMOL/L (3.5-5.1); SODIUM LEVEL 142 MMOL/L (136-145)
[2023-03-23 08:57] VITALS: BP 113/57
[2023-03-23] MEDS: HEPARIN SOD (PORCINE) 5000UNITS/ML 1ML VIAL/SYRINGE SQ SCH (08:58)
[2023-03-23] MEDS: PANTOPRAZOLE 40MG TAB (PROTONIX) PO SCH ×2 (08:58→20:03)
[2023-03-23] MEDS: GABAPENTIN 100 MG CAP PO SCH ×3 (08:58→20:03)
[2023-03-23] MEDS: LACTOBACILLUS ACIDOPHILUS CAP (BACID) PO SCH ×2 (08:58→17:20)
[2023-03-23] MEDS: ACETAMINOPHEN 500 MG TAB PO SCH ×3 (08:59→20:03)
[2023-03-23] MEDS: FERROUS SULFATE 325MG TAB PO SCH ×2 (08:59→20:03)
[2023-03-23] MEDS: METOPROLOL SUCC *XL* 12.5MG PER 1/2 TAB (TopROL *XL*) PO SCH (08:59)
[2023-03-23] MEDS: ASPIRIN 81MG ENTERIC TABLET PO SCH (08:59)
[2023-03-23] MEDS: REMEDY PHYTOPLEX Z-GUARD PASTE 113GM TUBE (FROM STOREROOM PRODUCT) TOP SCH ×3 (09:00→20:04)
[2023-03-23] MEDS: LIDOCAINE 5% (LIDODERM) PATCH TD SCH (09:00)
[2023-03-23] MEDS: POTASSIUM CHLORIDE 10MEQ SR TABLET PO SCH (09:01)
[2023-03-23] MEDS: CLOPIDOGREL 75 MG TAB PO SCH (09:01)
[2023-03-23] MEDS: SUCRALFATE 1 GM TAB PO SCH ×4 (09:06→20:03)
[2023-03-23] MEDS ORDERED: FERRIC CARBOXYMALTOSE INJ 750 MG, VIAL MATE ADAPTER 1 EACH in NS 250 ML IV ONE (10:00)
[2023-03-23 12:23] LABS: HEMATOCRIT 33.1 % (36.0-47.0); HEMOGLOBIN 10.3 g/dl (12.0-15.5); MEAN CORPUSCULAR HEMOGLOBIN 30.1 pg (27.0-33.0); MEAN CORPUSCULAR HGB CONC 31.1 g/dl (32.0-36.5); MEAN CORPUSCULAR VOLUME 96.8 fl (80.0-96.0); PLATELET COUNT, AUTOMATED 696 10^3/uL (150-450); RED BLOOD COUNT 3.42 10^6/uL (4.00-5.40); WHITE BLOOD COUNT 10.3 10^3/uL (4.0-10.0)
[2023-03-23 14:00] VITALS: BP 103/57; TEMP 98; O2SAT 95
[2023-03-23 14:30] VITALS: BP 98/57; TEMP 98; O2SAT 95
[2023-03-23 15:39] VITALS: BP 119/56; TEMP 98; O2SAT 96
[2023-03-23 20:00] VITALS: BP 103/60; TEMP 97; O2SAT 93
[2023-03-23] MEDS: oxyCODONE 5MG TAB PO PRN (20:03)
[2023-03-23] MEDS: ROSUVASTATIN 10 MG TAB (CRESTOR) PO SCH (20:04)
[2023-03-24] MEDS: LevoFLOXacin 250 MG TABLET PO SCH (05:02)
[2023-03-24 06:00] VITALS: BP 128/60; TEMP 96.8; O2SAT 93
[2023-03-24] MEDS: oxyCODONE 5MG TAB PO SCH ×2 (06:37→11:23)
[2023-03-24] MEDS: FERROUS SULFATE 325MG TAB PO SCH ×2 (07:09→20:32)
[2023-03-24] MEDS: GABAPENTIN 100 MG CAP PO SCH ×3 (07:10→20:32)
[2023-03-24] MEDS: APIXABAN 5 MG TAB (ELIQUIS) PO SCH ×2 (07:10→20:32)
[2023-03-24] MEDS: POTASSIUM CHLORIDE 10MEQ SR TABLET PO SCH (07:10)
[2023-03-24] MEDS: LACTOBACILLUS ACIDOPHILUS CAP (BACID) PO SCH ×2 (07:10→16:54)
[2023-03-24] MEDS: SUCRALFATE 1 GM TAB PO SCH ×4 (07:10→20:31)
[2023-03-24] MEDS: CLOPIDOGREL 75 MG TAB PO SCH (07:11)
[2023-03-24] MEDS: METOPROLOL SUCC *XL* 12.5MG PER 1/2 TAB (TopROL *XL*) PO SCH (07:11)
[2023-03-24] MEDS: PANTOPRAZOLE 40MG TAB (PROTONIX) PO SCH ×2 (07:11→20:32)
[2023-03-24] MEDS: ACETAMINOPHEN 500 MG TAB PO SCH ×3 (07:11→20:31)
[2023-03-24] MEDS: LIDOCAINE 5% (LIDODERM) PATCH TD SCH (07:11)
[2023-03-24] MEDS: REMEDY PHYTOPLEX Z-GUARD PASTE 113GM TUBE (FROM STOREROOM PRODUCT) TOP SCH ×3 (07:11→20:32)
[2023-03-24 10:28] LABS: BASO % 0.4 % (0.0-1.0); EOS # 0.3 10^3/uL (0.0-0.5); EOS % 3.4 % (0.0-3.0); HEMATOCRIT 30.1 % (36.0-47.0); HEMOGLOBIN 9.5 g/dl (12.0-15.5); LYMPH # 1.6 10^3/uL (1.5-5.0); LYMPH % 17.6 % (24.0-44.0); MEAN CORPUSCULAR HEMOGLOBIN 30.5 pg (27.0-33.0); MEAN CORPUSCULAR HGB CONC 31.6 g/dl (32.0-36.5); MEAN CORPUSCULAR VOLUME 96.8 fl (80.0-96.0); MONO # 0.9 10^3/uL (0.0-0.8); MONO % 9.2 % (2.0-8.0); NEUTROPHILS # 6.3 10^3/uL (1.5-8.5); NEUTROPHILS % 68.1 % (36.0-66.0); PLATELET COUNT, AUTOMATED 620 10^3/uL (150-450); RED BLOOD COUNT 3.11 10^6/uL (4.00-5.40); WHITE BLOOD COUNT 9.3 10^3/uL (4.0-10.0)
[2023-03-24 14:00] VITALS: BP 117/61; TEMP 98.6; O2SAT 95
[2023-03-24 20:00] VITALS: BP 106/58; TEMP 97.7; O2SAT 92
[2023-03-24] MEDS: ROSUVASTATIN 10 MG TAB (CRESTOR) PO SCH (20:32)
[2023-03-25] MEDS: oxyCODONE 5MG TAB PO PRN (03:16)
[2023-03-25 05:48] LABS: HEMATOCRIT 31.4 % (36.0-47.0); HEMOGLOBIN 9.8 g/dl (12.0-15.5); MEAN CORPUSCULAR HEMOGLOBIN 30.3 pg (27.0-33.0); MEAN CORPUSCULAR HGB CONC 31.2 g/dl (32.0-36.5); MEAN CORPUSCULAR VOLUME 97.2 fl (80.0-96.0); PLATELET COUNT, AUTOMATED 651 10^3/uL (150-450); RED BLOOD COUNT 3.23 10^6/uL (4.00-5.40); WHITE BLOOD COUNT 9.2 10^3/uL (4.0-10.0)
[2023-03-25 06:00] VITALS: BP 130/78; TEMP 98; O2SAT 92
[2023-03-25] MEDS: oxyCODONE 5MG TAB PO SCH ×2 (06:27→12:39)
[2023-03-25] MEDS: PANTOPRAZOLE 40MG TAB (PROTONIX) PO SCH ×2 (07:37→20:04)
[2023-03-25] MEDS: LACTOBACILLUS ACIDOPHILUS CAP (BACID) PO SCH ×2 (07:37→17:15)
[2023-03-25] MEDS: FERROUS SULFATE 325MG TAB PO SCH ×2 (07:37→20:04)
[2023-03-25] MEDS: SUCRALFATE 1 GM TAB PO SCH ×4 (07:37→20:04)
[2023-03-25] MEDS: ACETAMINOPHEN 500 MG TAB PO SCH ×3 (07:38→20:04)
[2023-03-25] MEDS: POTASSIUM CHLORIDE 10MEQ SR TABLET PO SCH (07:38)
[2023-03-25] MEDS: APIXABAN 5 MG TAB (ELIQUIS) PO SCH ×2 (07:38→20:04)
[2023-03-25] MEDS: CLOPIDOGREL 75 MG TAB PO SCH (07:38)
[2023-03-25] MEDS: GABAPENTIN 100 MG CAP PO SCH ×3 (07:38→20:04)
[2023-03-25] MEDS: METOPROLOL SUCC *XL* 12.5MG PER 1/2 TAB (TopROL *XL*) PO SCH (07:39)
[2023-03-25] MEDS: REMEDY PHYTOPLEX Z-GUARD PASTE 113GM TUBE (FROM STOREROOM PRODUCT) TOP SCH ×3 (07:39→20:05)
[2023-03-25] MEDS: LIDOCAINE 5% (LIDODERM) PATCH TD SCH (10:06)
[2023-03-25 14:00] VITALS: BP 110/58; TEMP 97.7; O2SAT 96
[2023-03-25] MEDS ORDERED: oxyCODONE 5MG TAB PO PRN (17:50)
[2023-03-25 20:00] VITALS: BP 108/64; TEMP 98.8; O2SAT 93
[2023-03-25] MEDS: ROSUVASTATIN 10 MG TAB (CRESTOR) PO SCH (20:04)
[2023-03-26 06:00] VITALS: BP 131/60; TEMP 97.4; O2SAT 97
[2023-03-26] MEDS: oxyCODONE 5MG TAB PO SCH ×2 (06:38→12:01)
[2023-03-26] MEDS: REMEDY PHYTOPLEX Z-GUARD PASTE 113GM TUBE (FROM STOREROOM PRODUCT) TOP SCH ×3 (09:00→20:47)
[2023-03-26] MEDS: GABAPENTIN 100 MG CAP PO SCH ×3 (09:37→20:46)
[2023-03-26] MEDS: APIXABAN 5 MG TAB (ELIQUIS) PO SCH ×2 (09:37→20:46)
[2023-03-26] MEDS: PANTOPRAZOLE 40MG TAB (PROTONIX) PO SCH ×2 (09:37→20:46)
[2023-03-26] MEDS: SUCRALFATE 1 GM TAB PO SCH ×4 (09:37→20:46)
[2023-03-26] MEDS: METOPROLOL SUCC *XL* 12.5MG PER 1/2 TAB (TopROL *XL*) PO SCH (09:37)
[2023-03-26] MEDS: LACTOBACILLUS ACIDOPHILUS CAP (BACID) PO SCH ×2 (09:37→17:26)
[2023-03-26] MEDS: FERROUS SULFATE 325MG TAB PO SCH ×2 (09:37→20:46)
[2023-03-26] MEDS: CLOPIDOGREL 75 MG TAB PO SCH (09:37)
[2023-03-26] MEDS: POTASSIUM CHLORIDE 10MEQ SR TABLET PO SCH (09:37)
[2023-03-26] MEDS: LIDOCAINE 5% (LIDODERM) PATCH TD SCH (09:38)
[2023-03-26] MEDS: ACETAMINOPHEN 500 MG TAB PO SCH ×3 (09:38→20:46)
[2023-03-26 14:00] VITALS: BP 111/61; TEMP 97.1; O2SAT 93
[2023-03-26 20:00] VITALS: BP 99/55; TEMP 97.7; O2SAT 93
[2023-03-26] MEDS: ROSUVASTATIN 10 MG TAB (CRESTOR) PO SCH (20:46)
[2023-03-27 06:00] VITALS: BP 128/68; TEMP 98; O2SAT 93
[2023-03-27] MEDS: oxyCODONE 5MG TAB PO SCH ×2 (06:03→12:06)
[2023-03-27] MEDS: GABAPENTIN 100 MG CAP PO SCH ×3 (07:14→19:39)
[2023-03-27] MEDS: CLOPIDOGREL 75 MG TAB PO SCH (07:14)
[2023-03-27] MEDS: LACTOBACILLUS ACIDOPHILUS CAP (BACID) PO SCH ×2 (07:14→17:33)
[2023-03-27] MEDS: FERROUS SULFATE 325MG TAB PO SCH ×2 (07:14→19:39)
[2023-03-27] MEDS: POTASSIUM CHLORIDE 10MEQ SR TABLET PO SCH (07:14)
[2023-03-27] MEDS: PANTOPRAZOLE 40MG TAB (PROTONIX) PO SCH ×2 (07:14→19:39)
[2023-03-27] MEDS: SUCRALFATE 1 GM TAB PO SCH ×4 (07:14→19:39)
[2023-03-27] MEDS: ACETAMINOPHEN 500 MG TAB PO SCH ×3 (07:15→19:40)
[2023-03-27] MEDS: APIXABAN 5 MG TAB (ELIQUIS) PO SCH ×2 (07:15→19:40)
[2023-03-27] MEDS: METOPROLOL SUCC *XL* 12.5MG PER 1/2 TAB (TopROL *XL*) PO SCH (07:15)
[2023-03-27] MEDS: LIDOCAINE 5% (LIDODERM) PATCH TD SCH (07:15)
[2023-03-27] MEDS: REMEDY PHYTOPLEX Z-GUARD PASTE 113GM TUBE (FROM STOREROOM PRODUCT) TOP SCH ×3 (07:16→19:41)
[2023-03-27] MEDS ORDERED: oxyCODONE 5MG TAB PO PRN (12:35)
[2023-03-27 14:00] VITALS: BP 110/56; TEMP 97.2; O2SAT 95
[2023-03-27] MEDS: ROSUVASTATIN 10 MG TAB (CRESTOR) PO SCH (19:40)
[2023-03-27 20:00] VITALS: BP 107/56; TEMP 98.6; O2SAT 96
[2023-03-28 06:00] VITALS: BP 131/64; TEMP 98.1; O2SAT 94
[2023-03-28] MEDS: oxyCODONE 5MG TAB PO SCH ×2 (06:26→11:46)
[2023-03-28 07:15] VITALS: BP 131/64
[2023-03-28] MEDS: POTASSIUM CHLORIDE 10MEQ SR TABLET PO SCH (07:15)
[2023-03-28] MEDS: SUCRALFATE 1 GM TAB PO SCH ×2 (07:15→11:45)
[2023-03-28] MEDS: LACTOBACILLUS ACIDOPHILUS CAP (BACID) PO SCH (07:15)
[2023-03-28] MEDS: APIXABAN 5 MG TAB (ELIQUIS) PO SCH (07:15)
[2023-03-28] MEDS: METOPROLOL SUCC *XL* 12.5MG PER 1/2 TAB (TopROL *XL*) PO SCH (07:15)
[2023-03-28] MEDS: FERROUS SULFATE 325MG TAB PO SCH (07:16)
[2023-03-28] MEDS: LIDOCAINE 5% (LIDODERM) PATCH TD SCH (07:16)
[2023-03-28] MEDS: PANTOPRAZOLE 40MG TAB (PROTONIX) PO SCH (07:16)
[2023-03-28] MEDS: CLOPIDOGREL 75 MG TAB PO SCH (07:16)
[2023-03-28] MEDS: REMEDY PHYTOPLEX Z-GUARD PASTE 113GM TUBE (FROM STOREROOM PRODUCT) TOP SCH (07:16)
[2023-03-28] MEDS: ACETAMINOPHEN 500 MG TAB PO SCH (07:16)
[2023-03-28] MEDS: GABAPENTIN 100 MG CAP PO SCH (07:16)
[2023-03-28] MEDS ORDERED: ELIQ5TAB PO ×2 (08:54→08:55)
[2023-03-28] MEDS ORDERED: PANT40TA29 PO (08:54)
[2023-03-28] MEDS ORDERED: LIDO5TD TD (08:55)
[2023-03-28] MEDS ORDERED: GABA-1171 PO (08:55)
[2023-03-28] MEDS ORDERED: SUCR1TA PO (08:55)
[2023-03-28] MEDS ORDERED: POTA-136 PO (08:55)
[2023-03-28] MEDS ORDERED: OXYC-517 PO ×2 (08:55)
[2023-03-31] MEDS ORDERED: APIXABAN 5 MG TAB (ELIQUIS) PO SCH (09:00)
== END 2023-03-28 13:40 | DRG 559 ==
LOC: M PM&R 14:55 → UNDODISIN 03-15 11:00
PROVIDERS: ADMIT Physical Medicine & Rehabilitation; ATTEND Physical Medicine & Rehabilitation
PROC: 30233N1 Transfusion of Nonautologous Red Blood Cells into Peripheral Vein, Percutaneous Approach (ICD-10-PCS; principal; 2023-03-13)
DX: S72.332D Displaced oblique fracture of shaft of left femur, subsequent encounter for closed fracture with routine healing (principal); I63.512 Cerebral infarction due to unspecified occlusion or stenosis of left middle cerebral artery; D62 Acute posthemorrhagic anemia; I47.1 Supraventricular tachycardia; I82.432 Acute embolism and thrombosis of left popliteal vein; N39.0 Urinary tract infection, site not specified; I25.10 Atherosclerotic heart disease of native coronary artery without angina pectoris; B96.1 Klebsiella pneumoniae [K. pneumoniae] as the cause of diseases classified elsewhere; M81.0 Age-related osteoporosis without current pathological fracture; K21.9 Gastro-esophageal reflux disease without esophagitis; Z74.09 Other reduced mobility; Z74.1 Need for assistance with personal care; E87.6 Hypokalemia; E83.42 Hypomagnesemia; K59.00 Constipation, unspecified; R41.0 Disorientation, unspecified; Z66 Do not resuscitate; R29.810 Facial weakness; I65.22 Occlusion and stenosis of left carotid artery; F03.90 Unspecified dementia, unspecified severity, without behavioral disturbance, psychotic disturbance, mood disturbance, and anxiety; Z95.5 Presence of coronary angioplasty implant and graft; Z79.82 Long term (current) use of aspirin; Z88.8 Allergy status to other drugs, medicaments and biological substances; Z79.899 Other long term (current) drug therapy; Z87.891 Personal history of nicotine dependence

== ENCOUNTER 2023-03-15 10:04 | Inpatient (IN) | payer MEDICARE, OTHER ==
[2023-03-15] VITALS (8 sets, daily range): BP systolic 107–135; BP diastolic 54–92; TEMP 97.3–99.1; O2SAT 92–95
[~2023-03-15] VITALS: Ht 157.5 cm; Wt 53.9 kg
[2023-03-15] MEDS: ACETAMINOPHEN 500 MG TAB PO SCH ×2 (09:00→20:46)
[~2023-03-15 10:04] MED LIST changes: +ASPIRIN 81MG ENTERIC TABLET PO SCH; +UNRESOLVED CLARIFICATION ENTRY XX SCH
[2023-03-15] MEDS ORDERED: CLOPIDOGREL 75 MG TAB PO ONE (10:25)
[2023-03-15] MEDS ORDERED: MIRALAX *UNIT DOSE* 17GM PACKET PO PRN (12:55)
[2023-03-15 13:17] LABS: HEMATOCRIT 28.1 % (36.0-47.0); HEMOGLOBIN 9.5 g/dl (12.0-15.5); MEAN CORPUSCULAR HEMOGLOBIN 30.8 pg (27.0-33.0); MEAN CORPUSCULAR HGB CONC 33.8 g/dl (32.0-36.5); MEAN CORPUSCULAR VOLUME 91.2 fl (80.0-96.0); PLATELET COUNT, AUTOMATED 235 10^3/uL (150-450); RED BLOOD COUNT 3.08 10^6/uL (4.00-5.40); WHITE BLOOD COUNT 7.6 10^3/uL (4.0-10.0)
[2023-03-15 13:46] LABS: BLOOD UREA NITROGEN 21 MG/DL (9-23); CALCIUM LEVEL 7.5 MG/DL (8.3-10.6); CARBON DIOXIDE LEVEL 27 MMOL/L (20-31); CHLORIDE LEVEL 106 MMOL/L (98-107); CHOLESTEROL LEVEL 128 MG/DL (<200); CHOLESTEROL RISK RATIO 2.83 (<5); CREATININE FOR GFR 0.37 MG/DL (0.55-1.30); GLOMERULAR FILTRATION RATE > 60.0 (>32); GLUCOSE, FASTING 114 MG/DL (74-106); HDL CHOLESTEROL 45.1 MG/DL (>40); LDL CHOLESTEROL 59.1 MG/DL (<100); NON-HDL-C 82.9 MG/DL; POTASSIUM SERUM 3.4 MMOL/L (3.5-5.1); SODIUM LEVEL 142 MMOL/L (136-145); TRIGLYCERIDES LEVEL 119 MG/DL (<150)
[2023-03-15 13:50] LABS: HEMOGLOBIN A1c 5.2 % (4.0-6.0)
[2023-03-15] MEDS ORDERED: ISOVUE-370 76% 100ML VIAL As Ordered ONE (13:59)
[2023-03-15] MEDS: PANTOPRAZOLE 40MG TAB (PROTONIX) PO SCH (16:25)
[2023-03-15] MEDS: HEPARIN SOD (PORCINE) 5000UNITS/ML 1ML VIAL/SYRINGE SQ SCH ×2 (16:25→22:00)
[2023-03-15] MEDS ORDERED: NS 500 ML IV ONE (17:00)
[2023-03-15] MEDS: NS 1,000 ML IV SCH ×2 (17:24→21:59)
[2023-03-15] MEDS ORDERED: POTASSIUM CHLORIDE 10% LIQ 20MEQ/15ML UDC PO ONE (18:00)
[2023-03-15] MEDS ORDERED: POTASSIUM CHLORIDE 10MEQ SR TABLET PO ONE (19:00)
[2023-03-15] MEDS: ROSUVASTATIN 10 MG TAB (CRESTOR) PO SCH (20:47)
[2023-03-16 02:00] VITALS: BP 109/70; TEMP 97.5; O2SAT 94
[2023-03-16] MEDS: HEPARIN SOD (PORCINE) 5000UNITS/ML 1ML VIAL/SYRINGE SQ SCH ×3 (05:45→21:32)
[2023-03-16 06:00] VITALS: BP 130/77; TEMP 97.7; O2SAT 96
[2023-03-16] MEDS: NS 1,000 ML IV SCH ×2 (06:04→16:15)
[2023-03-16 07:14] LABS: HEMATOCRIT 27.1 % (36.0-47.0); HEMOGLOBIN 8.9 g/dl (12.0-15.5); MEAN CORPUSCULAR HEMOGLOBIN 30.3 pg (27.0-33.0); MEAN CORPUSCULAR HGB CONC 32.8 g/dl (32.0-36.5); MEAN CORPUSCULAR VOLUME 92.2 fl (80.0-96.0); PLATELET COUNT, AUTOMATED 270 10^3/uL (150-450); RED BLOOD COUNT 2.94 10^6/uL (4.00-5.40); WHITE BLOOD COUNT 6.8 10^3/uL (4.0-10.0)
[2023-03-16 07:42] LABS: BLOOD UREA NITROGEN 16 MG/DL (9-23); CALCIUM LEVEL 7.5 MG/DL (8.3-10.6); CARBON DIOXIDE LEVEL 23 MMOL/L (20-31); CHLORIDE LEVEL 109 MMOL/L (98-107); CREATININE FOR GFR 0.35 MG/DL (0.55-1.30); GLOMERULAR FILTRATION RATE > 60.0 (>32); GLUCOSE, FASTING 86 MG/DL (74-106); MAGNESIUM LEVEL 1.6 MG/DL (1.8-2.4); PHOSPHORUS LEVEL 2.4 MG/DL (2.4-5.1); POTASSIUM SERUM 3.6 MMOL/L (3.5-5.1); SODIUM LEVEL 141 MMOL/L (136-145)
[2023-03-16] MEDS ORDERED: MAGNESIUM OXIDE 400MG TAB (MAG-OX) PO ONE (08:30)
[2023-03-16] MEDS: ACETAMINOPHEN 500 MG TAB PO SCH (08:48)
[2023-03-16] MEDS: PANTOPRAZOLE 40MG TAB (PROTONIX) PO SCH (08:48)
[2023-03-16] MEDS: CLOPIDOGREL 75 MG TAB PO SCH (08:49)
[2023-03-16] MEDS: ASPIRIN 81MG CHEW TABLET PO SCH (08:49)
[2023-03-16] MEDS ORDERED: CLOPIDOGREL 75 MG TAB PO SCH (09:00)
[2023-03-16] MEDS ORDERED: ASPIRIN 325 MG TAB NG SCH (09:00)
[2023-03-16] MEDS ORDERED: ASPIRIN 325 MG TAB PO SCH (09:00)
[2023-03-16] MEDS ORDERED: ANEXSIA, NORCO 7.5MG/325MG TABLET(HYDROCODONE/APAP) PO PRN (17:10)
[2023-03-16] MEDS: ANEXSIA, NORCO 7.5MG/325MG TABLET(HYDROCODONE/APAP) PO PRN (17:33)
[2023-03-16 19:12] VITALS: BP 109/67; TEMP 97.3; O2SAT 97
[2023-03-16] MEDS: ROSUVASTATIN 10 MG TAB (CRESTOR) PO SCH (21:31)
[2023-03-16 22:13] VITALS: BP 146/78; TEMP 97.7; O2SAT 94
[2023-03-17 02:29] VITALS: BP 144/78; TEMP 97.5; O2SAT 95
[2023-03-17] MEDS: HEPARIN SOD (PORCINE) 5000UNITS/ML 1ML VIAL/SYRINGE SQ SCH ×2 (05:28→13:03)
[2023-03-17 05:30] VITALS: BP 143/76; TEMP 97.5; O2SAT 97
[2023-03-17] MEDS: ASPIRIN 81MG CHEW TABLET PO SCH (08:53)
[2023-03-17] MEDS: CLOPIDOGREL 75 MG TAB PO SCH (08:53)
[2023-03-17] MEDS: PANTOPRAZOLE 40MG TAB (PROTONIX) PO SCH (08:53)
[2023-03-17] MEDS ORDERED: METOPROLOL SUCC *XL* 12.5MG PER 1/2 TAB (TopROL *XL*) PO SCH (09:00)
[2023-03-17 10:00] VITALS: BP 127/74; TEMP 98.1; O2SAT 97
[2023-03-17] MEDS ORDERED: CLOP75TA2 PO (11:57)
[2023-03-17] MEDS ORDERED: CRES10TA PO (11:57)
[2023-03-17] MEDS ORDERED: METO1TAB32 PO ×2 (13:01→13:02)
[2023-03-17] MEDS: ANEXSIA, NORCO 7.5MG/325MG TABLET(HYDROCODONE/APAP) PO PRN (13:03)
[2023-03-17 14:00] VITALS: BP 118/70; TEMP 96.6; O2SAT 90
[2023-03-17 14:39] VITALS: BP 127/74
== END 2023-03-17 18:31 | DRG 65 ==
LOC: M ICU 10:45 → M MSPAV 21:15
PROVIDERS: ADMIT Internal Medicine; ATTEND Internal Medicine
PROC: B246ZZZ Ultrasonography of Right and Left Heart (ICD-10-PCS; principal; 2023-03-17)
DX: I63.512 Cerebral infarction due to unspecified occlusion or stenosis of left middle cerebral artery (principal); D62 Acute posthemorrhagic anemia; I47.20 Ventricular tachycardia, unspecified; K21.9 Gastro-esophageal reflux disease without esophagitis; M81.0 Age-related osteoporosis without current pathological fracture; I25.10 Atherosclerotic heart disease of native coronary artery without angina pectoris; I65.22 Occlusion and stenosis of left carotid artery; F03.90 Unspecified dementia, unspecified severity, without behavioral disturbance, psychotic disturbance, mood disturbance, and anxiety; E87.6 Hypokalemia; K59.00 Constipation, unspecified; F39 Unspecified mood [affective] disorder; Z66 Do not resuscitate; Z79.82 Long term (current) use of aspirin; Z79.899 Other long term (current) drug therapy; Z79.02 Long term (current) use of antithrombotics/antiplatelets; Z88.8 Allergy status to other drugs, medicaments and biological substances

== ENCOUNTER → 2023-04-01 | Outpatient (REF) ==
[~2023-04-01] MED LIST changes: -ASPIRIN 81MG ENTERIC TABLET PO SCH; +CLOP75TA2 PO; +CRES10TA PO; +ELIQ5TAB PO; +METO1TAB32 PO; +OXYC-517 PO; +POTA-136 PO; +SUCR1TA PO; -UNRESOLVED CLARIFICATION ENTRY XX SCH
[2023-04-01 08:29] LABS: HEMATOCRIT 37.5 % (36.0-47.0); HEMOGLOBIN 11.7 g/dl (12.0-15.5); MEAN CORPUSCULAR HGB CONC 31.2 g/dl (32.0-36.5); MEAN CORPUSCULAR VOLUME 99.2 fl (80.0-96.0); PLATELET COUNT, AUTOMATED 631 10^3/uL (150-450); RED BLOOD COUNT 3.78 10^6/uL (4.00-5.40); WHITE BLOOD COUNT 7.6 10^3/uL (4.0-10.0)
[2023-04-01 09:12] LABS: BLOOD UREA NITROGEN 17 MG/DL (9-23); CALCIUM LEVEL 9.2 MG/DL (8.3-10.6); CARBON DIOXIDE LEVEL 26 MMOL/L (20-31); CHLORIDE LEVEL 106 MMOL/L (98-107); CREATININE FOR GFR 0.44 MG/DL (0.55-1.30); GLOMERULAR FILTRATION RATE > 60.0 (>32); GLUCOSE, FASTING 82 MG/DL (74-106); SODIUM LEVEL 142 MMOL/L (136-145)
== END ==
PROVIDERS: ATTEND Physician Assistant
DX: K92.2 Gastrointestinal hemorrhage, unspecified (principal)

== ENCOUNTER → 2023-04-08 | Outpatient (REF) ==
[2023-04-08 08:18] LABS: HEMATOCRIT 38.1 % (36.0-47.0); MEAN CORPUSCULAR HEMOGLOBIN 31.4 pg (27.0-33.0); MEAN CORPUSCULAR HGB CONC 31.5 g/dl (32.0-36.5); MEAN CORPUSCULAR VOLUME 99.7 fl (80.0-96.0); PLATELET COUNT, AUTOMATED 431 10^3/uL (150-450); RED BLOOD COUNT 3.82 10^6/uL (4.00-5.40); WHITE BLOOD COUNT 8.4 10^3/uL (4.0-10.0)
[2023-04-08 08:50] LABS: BLOOD UREA NITROGEN 31 MG/DL (9-23); CALCIUM LEVEL 9.2 MG/DL (8.3-10.6); CARBON DIOXIDE LEVEL 27 MMOL/L (20-31); CHLORIDE LEVEL 106 MMOL/L (98-107); CREATININE FOR GFR 0.46 MG/DL (0.55-1.30); GLOMERULAR FILTRATION RATE > 60.0 (>32); GLUCOSE, FASTING 88 MG/DL (74-106); POTASSIUM SERUM 4.1 MMOL/L (3.5-5.1); SODIUM LEVEL 141 MMOL/L (136-145)
== END ==
PROVIDERS: ATTEND Physician Assistant
DX: K92.2 Gastrointestinal hemorrhage, unspecified (principal)

== ENCOUNTER → 2023-04-11 | Outpatient (REF) | PROVIDERS: ATTEND Physician Assistant | DX: R19.7 Diarrhea, unspecified (principal) ==

== ENCOUNTER → 2023-04-15 | Outpatient (REF) | PROVIDERS: ATTEND Physician Assistant | DX: K92.2 Gastrointestinal hemorrhage, unspecified (principal); Z53.8 Procedure and treatment not carried out for other reasons ==

== ENCOUNTER → 2023-04-17 | Outpatient (REF) | payer MEDICARE, OTHER ==
[2023-04-17 09:23] LABS: HEMATOCRIT 39.8 % (36.0-47.0); HEMOGLOBIN 12.5 g/dl (12.0-15.5); MEAN CORPUSCULAR HEMOGLOBIN 31.6 pg (27.0-33.0); MEAN CORPUSCULAR HGB CONC 31.4 g/dl (32.0-36.5); MEAN CORPUSCULAR VOLUME 100.5 fl (80.0-96.0); PLATELET COUNT, AUTOMATED 394 10^3/uL (150-450); RED BLOOD COUNT 3.96 10^6/uL (4.00-5.40); WHITE BLOOD COUNT 11.7 10^3/uL (4.0-10.0)
[2023-04-17 09:52] LABS: BLOOD UREA NITROGEN 24 MG/DL (9-23); CALCIUM LEVEL 8.8 MG/DL (8.3-10.6); CARBON DIOXIDE LEVEL 28 MMOL/L (20-31); CHLORIDE LEVEL 105 MMOL/L (98-107); CREATININE FOR GFR 0.43 MG/DL (0.55-1.30); GLOMERULAR FILTRATION RATE > 60.0 (>32); GLUCOSE, FASTING 84 MG/DL (74-106); POTASSIUM SERUM 3.6 MMOL/L (3.5-5.1); SODIUM LEVEL 140 MMOL/L (136-145)
== END ==
PROVIDERS: ATTEND Physician Assistant
DX: K92.2 Gastrointestinal hemorrhage, unspecified (principal)

== ENCOUNTER → 2023-04-23 | Outpatient (REF) | PROVIDERS: ATTEND Physician Assistant | DX: R19.5 Other fecal abnormalities (principal) ==

== ENCOUNTER → 2023-04-26 | Outpatient (CLI) | payer MEDICARE, OTHER | LOC: M SOG 07:56 | PROVIDERS: ATTEND Orthopaedic Surgery | DX: S72.142D Displaced intertrochanteric fracture of left femur, subsequent encounter for closed fracture with routine healing (principal); Z96.652 Presence of left artificial knee joint; Y93.9 Activity, unspecified; Y92.9 Unspecified place or not applicable ==

== ENCOUNTER → 2023-05-20 | Outpatient (REF) ==
[2023-05-20 11:05] LABS: HEMATOCRIT 46.5 % (36.0-47.0); HEMOGLOBIN 14.7 g/dl (12.0-15.5); MEAN CORPUSCULAR HEMOGLOBIN 31.7 pg (27.0-33.0); MEAN CORPUSCULAR HGB CONC 31.6 g/dl (32.0-36.5); MEAN CORPUSCULAR VOLUME 100.4 fl (80.0-96.0); PLATELET COUNT, AUTOMATED 373 10^3/uL (150-450); RED BLOOD COUNT 4.63 10^6/uL (4.00-5.40); WHITE BLOOD COUNT 8.4 10^3/uL (4.0-10.0)
[2023-05-20 11:32] LABS: BLOOD UREA NITROGEN 24 MG/DL (9-23); CALCIUM LEVEL 9.3 MG/DL (8.3-10.6); CARBON DIOXIDE LEVEL 26 MMOL/L (20-31); CHLORIDE LEVEL 109 MMOL/L (98-107); CREATININE FOR GFR 0.43 MG/DL (0.55-1.30); GLOMERULAR FILTRATION RATE > 60.0 (>32); GLUCOSE, FASTING 68 MG/DL (74-106); POTASSIUM SERUM 3.9 MMOL/L (3.5-5.1); SODIUM LEVEL 144 MMOL/L (136-145)
== END ==
PROVIDERS: ATTEND Family Medicine
DX: K92.2 Gastrointestinal hemorrhage, unspecified (principal)

== ENCOUNTER → 2023-06-24 | Outpatient (REF) | payer MEDICARE, OTHER ==
[2023-06-24 11:37] LABS: HEMATOCRIT 39.3 % (36.0-47.0); HEMOGLOBIN 12.3 g/dl (12.0-15.5); MEAN CORPUSCULAR HEMOGLOBIN 31.7 pg (27.0-33.0); MEAN CORPUSCULAR HGB CONC 31.3 g/dl (32.0-36.5); MEAN CORPUSCULAR VOLUME 101.3 fl (80.0-96.0); PLATELET COUNT, AUTOMATED 330 10^3/uL (150-450); RED BLOOD COUNT 3.88 10^6/uL (4.00-5.40); WHITE BLOOD COUNT 6.8 10^3/uL (4.0-10.0)
[2023-06-24 12:05] LABS: BLOOD UREA NITROGEN 19 MG/DL (9-23); CALCIUM LEVEL 8.9 MG/DL (8.3-10.6); CARBON DIOXIDE LEVEL 26 MMOL/L (20-31); CHLORIDE LEVEL 108 MMOL/L (98-107); CREATININE FOR GFR 0.46 MG/DL (0.55-1.30); GLOMERULAR FILTRATION RATE > 60.0 (>32); GLUCOSE, FASTING 60 MG/DL (74-106); POTASSIUM SERUM 3.9 MMOL/L (3.5-5.1); SODIUM LEVEL 143 MMOL/L (136-145)
== END ==
PROVIDERS: ATTEND Family Medicine
DX: S72.90XD Unspecified fracture of unspecified femur, subsequent encounter for closed fracture with routine healing (principal); Z79.899 Other long term (current) drug therapy

== ENCOUNTER → 2023-07-24 | Outpatient (REF) | payer MEDICARE, OTHER ==
[2023-07-24 11:51] LABS: HEMOGLOBIN 13.1 g/dl (12.0-15.5); MEAN CORPUSCULAR HEMOGLOBIN 31.1 pg (27.0-33.0); MEAN CORPUSCULAR HGB CONC 31.2 g/dl (32.0-36.5); MEAN CORPUSCULAR VOLUME 99.8 fl (80.0-96.0); PLATELET COUNT, AUTOMATED 364 10^3/uL (150-450); RED BLOOD COUNT 4.21 10^6/uL (4.00-5.40); WHITE BLOOD COUNT 8.3 10^3/uL (4.0-10.0)
[2023-07-24 12:19] LABS: BLOOD UREA NITROGEN 14 MG/DL (9-23); CALCIUM LEVEL 9.2 MG/DL (8.3-10.6); CARBON DIOXIDE LEVEL 28 MMOL/L (20-31); CHLORIDE LEVEL 107 MMOL/L (98-107); CREATININE FOR GFR 0.54 MG/DL (0.55-1.30); GLOMERULAR FILTRATION RATE > 60.0 (>32); GLUCOSE, FASTING 47 MG/DL (74-106); POTASSIUM SERUM 3.9 MMOL/L (3.5-5.1); SODIUM LEVEL 143 MMOL/L (136-145)
== END ==
PROVIDERS: ATTEND Physician Assistant
DX: K92.2 Gastrointestinal hemorrhage, unspecified (principal)

== ENCOUNTER → 2023-07-31 | Outpatient (CLI) | payer MEDICARE, OTHER | LOC: M SOG 07:56 | PROVIDERS: ATTEND Orthopaedic Surgery | DX: S72.142A Displaced intertrochanteric fracture of left femur, initial encounter for closed fracture (principal); Y93.9 Activity, unspecified; Y92.9 Unspecified place or not applicable ==

== ENCOUNTER → 2023-08-28 | Outpatient (REF) | payer MEDICARE, OTHER ==
[2023-08-28 11:23] LABS: HEMATOCRIT 42.7 % (36.0-47.0); HEMOGLOBIN 13.5 g/dl (12.0-15.5); MEAN CORPUSCULAR HEMOGLOBIN 30.8 pg (27.0-33.0); MEAN CORPUSCULAR HGB CONC 31.6 g/dl (32.0-36.5); MEAN CORPUSCULAR VOLUME 97.5 fl (80.0-96.0); PLATELET COUNT, AUTOMATED 368 10^3/uL (150-450); RED BLOOD COUNT 4.38 10^6/uL (4.00-5.40); WHITE BLOOD COUNT 8.3 10^3/uL (4.0-10.0)
[2023-08-28 11:41] LABS: BLOOD UREA NITROGEN 15 MG/DL (9-23); CARBON DIOXIDE LEVEL 29 MMOL/L (20-31); CHLORIDE LEVEL 108 MMOL/L (98-107); GLOMERULAR FILTRATION RATE > 60.0 (>32); GLUCOSE, FASTING 62 MG/DL (74-106); POTASSIUM SERUM 3.7 MMOL/L (3.5-5.1); SODIUM LEVEL 143 MMOL/L (136-145)
== END ==
PROVIDERS: ATTEND Family Medicine
DX: K92.2 Gastrointestinal hemorrhage, unspecified (principal)

== ENCOUNTER → 2023-09-25 | Outpatient (REF) | payer MEDICARE, OTHER ==
[~2023-09-25] MED LIST changes: -ASPI-161 PO; +ASPI-615 PO; -MIRA1POW3 PO; +MIRA33506 PO; -SENN1TAB41 PO; +SENN1TAB85 PO
[2023-09-25 10:39] LABS: HEMATOCRIT 45.1 % (36.0-47.0); HEMOGLOBIN 14.1 g/dl (12.0-15.5); MEAN CORPUSCULAR HEMOGLOBIN 30.1 pg (27.0-33.0); MEAN CORPUSCULAR HGB CONC 31.3 g/dl (32.0-36.5); MEAN CORPUSCULAR VOLUME 96.4 fl (80.0-96.0); PLATELET COUNT, AUTOMATED 340 10^3/uL (150-450); RED BLOOD COUNT 4.68 10^6/uL (4.00-5.40); WHITE BLOOD COUNT 7.8 10^3/uL (4.0-10.0)
[2023-09-25 11:11] LABS: BLOOD UREA NITROGEN 19 MG/DL (9-23); CALCIUM LEVEL 8.9 MG/DL (8.3-10.6); CARBON DIOXIDE LEVEL 28 MMOL/L (20-31); CHLORIDE LEVEL 106 MMOL/L (98-107); CREATININE FOR GFR 0.53 MG/DL (0.55-1.30); GLOMERULAR FILTRATION RATE > 60.0 (>32); GLUCOSE, FASTING 46 MG/DL (74-106); POTASSIUM SERUM 3.2 MMOL/L (3.5-5.1); SODIUM LEVEL 140 MMOL/L (136-145)
== END ==
PROVIDERS: ATTEND Family Medicine
DX: K92.2 Gastrointestinal hemorrhage, unspecified (principal)

== ENCOUNTER → 2023-10-09 | Outpatient (REF) | payer MEDICARE, OTHER ==
[~2023-10-09] MED LIST changes: +SENN1TAB41 PO; -SENN1TAB85 PO
[2023-10-09 10:31] LABS: BLOOD UREA NITROGEN 17 MG/DL (9-23); CARBON DIOXIDE LEVEL 29 MMOL/L (20-31); CHLORIDE LEVEL 107 MMOL/L (98-107); GLOMERULAR FILTRATION RATE > 60.0 (>32); GLUCOSE, FASTING 99 MG/DL (74-106); SODIUM LEVEL 142 MMOL/L (136-145)
== END ==
PROVIDERS: ATTEND Family Medicine
DX: E87.6 Hypokalemia (principal)

== ENCOUNTER → 2023-10-23 | Outpatient (REF) | payer MEDICARE, OTHER ==
[~2023-10-23] MED LIST changes: -SENN1TAB41 PO; +SENN1TAB85 PO
[2023-10-23 10:31] LABS: HEMATOCRIT 42.6 % (36.0-47.0); HEMOGLOBIN 13.4 g/dl (12.0-15.5); MEAN CORPUSCULAR HGB CONC 31.5 g/dl (32.0-36.5); MEAN CORPUSCULAR VOLUME 95.5 fl (80.0-96.0); PLATELET COUNT, AUTOMATED 380 10^3/uL (150-450); RED BLOOD COUNT 4.46 10^6/uL (4.00-5.40); WHITE BLOOD COUNT 7.7 10^3/uL (4.0-10.0)
[2023-10-23 11:01] LABS: BLOOD UREA NITROGEN 26 MG/DL (9-23); CALCIUM LEVEL 8.5 MG/DL (8.3-10.6); CARBON DIOXIDE LEVEL 28 MMOL/L (20-31); CHLORIDE LEVEL 108 MMOL/L (98-107); CREATININE FOR GFR 0.57 MG/DL (0.55-1.30); GLOMERULAR FILTRATION RATE > 60.0 (>32); GLUCOSE, FASTING 56 MG/DL (74-106); SODIUM LEVEL 139 MMOL/L (136-145)
== END ==
PROVIDERS: ATTEND Physician Assistant
DX: I48.91 Unspecified atrial fibrillation (principal)

== ENCOUNTER → 2023-11-04 | Outpatient (CLI) | payer MEDICARE | LOC: M PLALAB 15:16 | PROVIDERS: ATTEND Family Medicine | DX: R10.2 Pelvic and perineal pain (principal); M54.50 Low back pain, unspecified; M79.605 Pain in left leg; M41.86 Other forms of scoliosis, lumbar region ==

== ENCOUNTER → 2023-11-20 | Outpatient (REF) | payer MEDICARE, OTHER | PROVIDERS: ATTEND Family Medicine | DX: E78.5 Hyperlipidemia, unspecified (principal); Z79.899 Other long term (current) drug therapy ==

== ENCOUNTER → 2023-12-10 | Outpatient (REF) | payer MEDICARE, OTHER | PROVIDERS: ATTEND Physician Assistant | DX: J02.9 Acute pharyngitis, unspecified (principal) ==

== ENCOUNTER → 2023-12-17 | Outpatient (REF) | payer MEDICARE, OTHER | PROVIDERS: ATTEND Family Medicine | DX: R05.9 Cough, unspecified (principal) ==

== ENCOUNTER 2023-12-30 09:45 | Observation (INO) | payer MEDICARE, OTHER, MEDICAID ==
[2023-12-30 11:00] LABS: BASO # 0.1 10^3/uL (0.0-0.2); BASO % 0.5 % (0.0-1.0); EOS # 0.1 10^3/uL (0.0-0.5); HEMATOCRIT 40.3 % (36.0-47.0); HEMOGLOBIN 13.2 g/dl (12.0-15.5); LYMPH # 1.7 10^3/uL (1.5-5.0); LYMPH % 12.7 % (24.0-44.0); MEAN CORPUSCULAR HEMOGLOBIN 30.6 pg (27.0-33.0); MEAN CORPUSCULAR HGB CONC 32.8 g/dl (32.0-36.5); MEAN CORPUSCULAR VOLUME 93.5 fl (80.0-96.0); MONO # 1.1 10^3/uL (0.0-0.8); MONO % 8.3 % (2.0-8.0); NEUTROPHILS # 10.3 10^3/uL (1.5-8.5); NEUTROPHILS % 76.9 % (36.0-66.0); PLATELET COUNT, AUTOMATED 369 10^3/uL (150-450); RED BLOOD COUNT 4.31 10^6/uL (4.00-5.40); WHITE BLOOD COUNT 13.4 10^3/uL (4.0-10.0)
[2023-12-30 11:13] LABS: INR 1.25; PARTIAL THROMBOPLASTIN TIME 29.5 SECONDS (24.8-34.2); PROTHROMBIN TIME 15.3 SECONDS (12.5-14.5)
[2023-12-30 11:26] LABS: BLOOD UREA NITROGEN 18 MG/DL (9-23); CARBON DIOXIDE LEVEL 24 MMOL/L (20-31); CHLORIDE LEVEL 108 MMOL/L (98-107); CREATININE FOR GFR 0.57 MG/DL (0.55-1.30); GLOMERULAR FILTRATION RATE > 60.0 (>32); GLUCOSE, FASTING 110 MG/DL (74-106); POTASSIUM SERUM 4.6 MMOL/L (3.5-5.1); SODIUM LEVEL 141 MMOL/L (136-145)
[2023-12-30] MEDS ORDERED: CHOL4POW26 PO (11:49)
[2023-12-30] MEDS ORDERED: LOPE1CAP5 PO (11:49)
[2023-12-30] MEDS ORDERED: FLEEENE12 PR (11:49)
[2023-12-30] MEDS ORDERED: ACET1TAB55 PO (11:49)
[2023-12-30] MEDS ORDERED: METO1TAB32 PO (11:49)
[2023-12-30] MEDS ORDERED: PANT40TA29 PO (11:49)
[2023-12-30] MEDS ORDERED: SUCR1TA PO (11:49)
[2023-12-30] MEDS ORDERED: POTA-151 PO (11:49)
[2023-12-30] MEDS ORDERED: CLOP75TA2 PO (11:49)
[2023-12-30] MEDS ORDERED: BISA10SU4 PR (11:49)
[2023-12-30] MEDS ORDERED: ELIQ2.5T PO (11:49)
[2023-12-30] MEDS ORDERED: SERT25TA85 PO (11:49)
[2023-12-30] MEDS ORDERED: ROSU20TA61 PO (11:49)
[2023-12-30] MEDS ORDERED: GABA-1171 PO (11:49)
[2023-12-30] MEDS ORDERED: HOME MED LIST COMPLETE! XX SCH (11:55)
[2023-12-30] MEDS: MORPHINE 2 MG/ML 1ML VIAL IV ONE (13:56)
[2023-12-30] MEDS ORDERED: MOM 30ML SUSPENSION UDC PO PRN (17:30)
[2023-12-30] MEDS ORDERED: BISACODYL 10MG SUPP PR PRN (17:30)
[2023-12-30] MEDS ORDERED: ACETAMINOPHEN TAB 650MG DOSE (2X325MG) PO PRN (17:30)
[2023-12-30 17:50] VITALS: BP 128/69; TEMP 98.8; O2SAT 98
[2023-12-30 18:23] LABS: APPEARANCE, URINE HAZY (CLEAR); BACTERIA, URINE AUTO NEGATIVE (NEGATIVE); BILIRUBIN, URINE AUTO NEGATIVE (NEGATIVE); BLOOD, URINE BLOOD NEGATIVE (NEGATIVE); COLOR, URINE YELLOW (YELLOW); GLUCOSE, URINE (UA) AUTO NEGATIVE (NEGATIVE); KETONE, URINE AUTO NEGATIVE (NEGATIVE); LEUKOCYTE ESTERASE, URINE AUTO NEGATIVE (NEGATIVE); MUCUS, URINE SMALL (NEGATIVE); NITRITE, URINE AUTO NEGATIVE (NEGATIVE); PROTEIN, URINE AUTO NEGATIVE (NEGATIVE); RBC, URINE AUTO 10 /HPF (0-3); SPECIFIC GRAVITY URINE AUTO 1.019 (1.002-1.035); SQUAMOUS EPITHELIAL CELL UR AU 0 /HPF (0-6); UROBILINOGEN, URINE AUTO 0.2 mg/dL (0.0-2.0); WBC, URINE AUTO 2 /HPF (0-3)
[2023-12-30] MEDS ORDERED: PERCOCET 5MG/325MG TAB PO PRN (19:10)
[2023-12-30 20:00] VITALS: BP 123/67; TEMP 97.7; O2SAT 94
[2023-12-30] MEDS: SERTRALINE HCL 25 MG TABLET PO SCH (21:12)
[2023-12-30] MEDS: PANTOPRAZOLE 40MG TAB (PROTONIX) PO SCH (21:12)
[2023-12-30] MEDS: SUCRALFATE 1 GM TAB PO SCH (21:12)
[2023-12-30] MEDS: ROSUVASTATIN 10 MG TAB (CRESTOR) PO SCH (21:12)
[2023-12-30] MEDS: APIXABAN 2.5 MG TAB (ELIQUIS) PO SCH (21:12)
[2023-12-30] MEDS: PERCOCET 5MG/325MG TAB PO PRN (23:35)
[2023-12-31] MEDS: CHOLESTYRAMINE 4GM PWD PKT PO SCH (05:38)
[2023-12-31 05:39] VITALS: BP 120/66; TEMP 97.7; O2SAT 95
[2023-12-31 06:49] LABS: BASO # 0.1 10^3/uL (0.0-0.2); BASO % 0.8 % (0.0-1.0); EOS # 0.5 10^3/uL (0.0-0.5); EOS % 4.7 % (0.0-3.0); HEMATOCRIT 38.1 % (36.0-47.0); HEMOGLOBIN 12.5 g/dl (12.0-15.5); LYMPH # 1.7 10^3/uL (1.5-5.0); LYMPH % 15.9 % (24.0-44.0); MEAN CORPUSCULAR HEMOGLOBIN 30.6 pg (27.0-33.0); MEAN CORPUSCULAR HGB CONC 32.8 g/dl (32.0-36.5); MEAN CORPUSCULAR VOLUME 93.2 fl (80.0-96.0); MONO # 0.9 10^3/uL (0.0-0.8); MONO % 8.8 % (2.0-8.0); NEUTROPHILS # 7.3 10^3/uL (1.5-8.5); NEUTROPHILS % 69.1 % (36.0-66.0); PLATELET COUNT, AUTOMATED 340 10^3/uL (150-450); RED BLOOD COUNT 4.09 10^6/uL (4.00-5.40); WHITE BLOOD COUNT 10.5 10^3/uL (4.0-10.0)
[2023-12-31 07:22] LABS: BLOOD UREA NITROGEN 19 MG/DL (9-23); CALCIUM LEVEL 8.8 MG/DL (8.3-10.6); CARBON DIOXIDE LEVEL 25 MMOL/L (20-31); CHLORIDE LEVEL 104 MMOL/L (98-107); CREATININE FOR GFR 0.51 MG/DL (0.55-1.30); GLOMERULAR FILTRATION RATE > 60.0 (>32); GLUCOSE, FASTING 108 MG/DL (74-106); MAGNESIUM LEVEL 1.9 MG/DL (1.8-2.4); POTASSIUM SERUM 3.8 MMOL/L (3.5-5.1); SODIUM LEVEL 137 MMOL/L (136-145)
[2023-12-31] MEDS: CLOPIDOGREL 75 MG TAB PO SCH (09:52)
== END 2023-12-31 12:57 ==
LOC: M ED 09:45 → M ED INP 09:46 → UNDOADMIN 16:03 → M MSPAV 17:53
PROVIDERS: ADMIT Internal Medicine; ATTEND Internal Medicine
DX: S32.591A Other specified fracture of right pubis, initial encounter for closed fracture (principal); W01.0XXA Fall on same level from slipping, tripping and stumbling without subsequent striking against object, initial encounter; Y92.128 Other place in nursing home as the place of occurrence of the external cause; Y93.01 Activity, walking, marching and hiking; Y99.8 Other external cause status; R33.9 Retention of urine, unspecified; D72.829 Elevated white blood cell count, unspecified; K21.9 Gastro-esophageal reflux disease without esophagitis; F41.9 Anxiety disorder, unspecified; I25.2 Old myocardial infarction; M85.80 Other specified disorders of bone density and structure, unspecified site; K59.00 Constipation, unspecified; Z86.73 Personal history of transient ischemic attack (TIA), and cerebral infarction without residual deficits; Z86.718 Personal history of other venous thrombosis and embolism; Z96.653 Presence of artificial knee joint, bilateral; Z87.81 Personal history of (healed) traumatic fracture; Z95.5 Presence of coronary angioplasty implant and graft; Z90.49 Acquired absence of other specified parts of digestive tract; Z90.89 Acquired absence of other organs; Z87.891 Personal history of nicotine dependence; Z79.899 Other long term (current) drug therapy; Z79.01 Long term (current) use of anticoagulants; Z79.02 Long term (current) use of antithrombotics/antiplatelets; Z88.8 Allergy status to other drugs, medicaments and biological substances
CPT/HCPCS: 36415; 51702; 70450; 72125; 72128; 72131; 73502; 73552; 73590; 80048; 81001; 83735; 84484; 85025; 85610; 85730; 87086; 93005; 93041; 94760; 96374; 97161; 97530; 99285; G0378

== ENCOUNTER 2024-01-11 20:07 | Emergency (ER) | payer MEDICARE, OTHER, MEDICAID ==
[~2024-01-11] VITALS: Ht 165.1 cm; Wt 57.2 kg
[~2024-01-11 20:07] MED LIST changes: +BISA10SU4 PR; +CHOL4POW26 PO; +ELIQ2.5T PO; +FLEEENE12 PR; +LOPE1CAP5 PO; +POTA-151 PO; +ROSU20TA61 PO; +SERT25TA85 PO
[2024-01-11 20:29] VITALS: TEMP 98.3
[2024-01-11 20:57] LABS: BASO % 0.4 % (0.0-1.0); EOS # 0.5 10^3/uL (0.0-0.5); EOS % 5.4 % (0.0-3.0); HEMATOCRIT 40.4 % (36.0-47.0); HEMOGLOBIN 12.9 g/dl (12.0-15.5); LYMPH # 1.6 10^3/uL (1.5-5.0); LYMPH % 16.9 % (24.0-44.0); MEAN CORPUSCULAR HEMOGLOBIN 30.1 pg (27.0-33.0); MEAN CORPUSCULAR HGB CONC 31.9 g/dl (32.0-36.5); MEAN CORPUSCULAR VOLUME 94.4 fl (80.0-96.0); MONO # 0.6 10^3/uL (0.0-0.8); MONO % 5.9 % (2.0-8.0); NEUTROPHILS # 6.8 10^3/uL (1.5-8.5); NEUTROPHILS % 69.8 % (36.0-66.0); RED BLOOD COUNT 4.28 10^6/uL (4.00-5.40); WHITE BLOOD COUNT 9.7 10^3/uL (4.0-10.0)
[2024-01-11 21:02] LABS: PLATELET COUNT, AUTOMATED 451 10^3/uL (150-450)
[2024-01-11 21:23] LABS: BLOOD UREA NITROGEN 21 MG/DL (9-23); CALCIUM LEVEL 8.9 MG/DL (8.3-10.6); CARBON DIOXIDE LEVEL 27 MMOL/L (20-31); CHLORIDE LEVEL 106 MMOL/L (98-107); CREATININE FOR GFR 0.49 MG/DL (0.55-1.30); GLOMERULAR FILTRATION RATE > 60.0 (>32); GLUCOSE, FASTING 105 MG/DL (74-106); POTASSIUM SERUM 5.5 MMOL/L (3.5-5.1); SODIUM LEVEL 139 MMOL/L (136-145)
[2024-01-12] VITALS: BP 114/58; O2SAT 91
== END 2024-01-12 00:19 | disposition home or self-care (01) ==
LOC: M ED 20:07 → EDBD 20:07 → M ED 01-12 00:19
DX: S32.591A Other specified fracture of right pubis, initial encounter for closed fracture (principal); W19.XXXA Unspecified fall, initial encounter; Y92.129 Unspecified place in nursing home as the place of occurrence of the external cause; Y93.89 Activity, other specified; Y99.9 Unspecified external cause status; I51.9 Heart disease, unspecified; Z86.73 Personal history of transient ischemic attack (TIA), and cerebral infarction without residual deficits; Z86.718 Personal history of other venous thrombosis and embolism; Z79.01 Long term (current) use of anticoagulants; Z79.899 Other long term (current) drug therapy; Z88.8 Allergy status to other drugs, medicaments and biological substances

== ENCOUNTER → 2024-01-15 | Outpatient (CLI) | payer MEDICARE, OTHER, MEDICAID | LOC: M SOG 07:51 | PROVIDERS: ATTEND Orthopaedic Surgery | DX: M54.6 Pain in thoracic spine (principal); M54.50 Low back pain, unspecified; R10.2 Pelvic and perineal pain; M47.816 Spondylosis without myelopathy or radiculopathy, lumbar region; S32.501A Unspecified fracture of right pubis, initial encounter for closed fracture; X58.XXXA Exposure to other specified factors, initial encounter; Y92.9 Unspecified place or not applicable; Y93.9 Activity, unspecified; Y99.9 Unspecified external cause status; Z87.81 Personal history of (healed) traumatic fracture; M85.88 Other specified disorders of bone density and structure, other site; M47.814 Spondylosis without myelopathy or radiculopathy, thoracic region ==

== ENCOUNTER 2024-02-08 04:41 | Emergency (ER) | payer MEDICARE, OTHER, MEDICAID ==
[~2024-02-08] VITALS: Ht 157.5 cm; Wt 54.5 kg
[2024-02-08 05:45] VITALS: BP 120/65; TEMP 97.9; O2SAT 97
== END 2024-02-08 05:53 | disposition home or self-care (01) ==
LOC: M ED 04:41
DX: S00.03XA Contusion of scalp, initial encounter (principal); Y92.019 Unspecified place in single-family (private) house as the place of occurrence of the external cause; Y93.9 Activity, unspecified; Y99.9 Unspecified external cause status; I10 Essential (primary) hypertension; K21.9 Gastro-esophageal reflux disease without esophagitis; E78.5 Hyperlipidemia, unspecified; F32.A Depression, unspecified; Z88.8 Allergy status to other drugs, medicaments and biological substances; Z79.1 Long term (current) use of non-steroidal anti-inflammatories (NSAID); Z79.899 Other long term (current) drug therapy

== ENCOUNTER → 2024-02-17 | Outpatient (REF) | payer MEDICARE, OTHER, MEDICAID ==
[2024-02-17 11:19] LABS: MEAN CORPUSCULAR HEMOGLOBIN 29.7 pg (27.0-33.0); MEAN CORPUSCULAR HGB CONC 31.1 g/dl (32.0-36.5); MEAN CORPUSCULAR VOLUME 95.3 fl (80.0-96.0); PLATELET COUNT, AUTOMATED 383 10^3/uL (150-450); RED BLOOD COUNT 4.72 10^6/uL (4.00-5.40)
[2024-02-17 11:51] LABS: BLOOD UREA NITROGEN 15 MG/DL (9-23); CARBON DIOXIDE LEVEL 25 MMOL/L (20-31); CHLORIDE LEVEL 107 MMOL/L (98-107); CREATININE FOR GFR 0.48 MG/DL (0.55-1.30); GLOMERULAR FILTRATION RATE > 60.0 (>32); GLUCOSE, FASTING 62 MG/DL (74-106); POTASSIUM SERUM 4.1 MMOL/L (3.5-5.1); SODIUM LEVEL 140 MMOL/L (136-145)
== END ==
PROVIDERS: ATTEND Physician Assistant
DX: E78.6 Lipoprotein deficiency (principal)

== ENCOUNTER → 2024-03-24 | Outpatient (REF) | payer MEDICARE, OTHER, MEDICAID ==
[~2024-03-24] MED LIST changes: +ACET-907 PO; +BENPAD TOP; +MUCI600T31 PO; +NIRM1TAB13 PO; +SENN-23 PO
[2024-03-24 18:45] LABS: HEMATOCRIT 39.5 % (36.0-47.0); HEMOGLOBIN 12.5 g/dl (12.0-15.5); MEAN CORPUSCULAR HEMOGLOBIN 30.1 pg (27.0-33.0); MEAN CORPUSCULAR HGB CONC 31.6 g/dl (32.0-36.5); MEAN CORPUSCULAR VOLUME 95.2 fl (80.0-96.0); PLATELET COUNT, AUTOMATED 294 10^3/uL (150-450); RED BLOOD COUNT 4.15 10^6/uL (4.00-5.40); WHITE BLOOD COUNT 7.3 10^3/uL (4.0-10.0)
[2024-03-24 19:18] LABS: BLOOD UREA NITROGEN 22 MG/DL (9-23); CALCIUM LEVEL 8.7 MG/DL (8.3-10.6); CARBON DIOXIDE LEVEL 25 MMOL/L (20-31); CHLORIDE LEVEL 107 MMOL/L (98-107); CREATININE FOR GFR 0.76 MG/DL (0.55-1.30); GLOMERULAR FILTRATION RATE > 60.0 (>32); GLUCOSE, FASTING 84 MG/DL (74-106); SODIUM LEVEL 141 MMOL/L (136-145)
== END ==
PROVIDERS: ATTEND Physician Assistant
DX: U07.1 COVID-19 (principal); Z79.899 Other long term (current) drug therapy

== ENCOUNTER 2024-03-26 17:46 | Inpatient (IN) | payer MEDICARE, OTHER, MEDICAID ==
[~2024-03-26] VITALS: Ht 149.9 cm; Wt 56.3 kg
[~2024-03-26 17:46] MED LIST changes: -ACET-907 PO; -BENPAD TOP; -MUCI600T31 PO; -NIRM1TAB13 PO; -SENN-23 PO
[2024-03-26] MEDS: NS 1,000 ML IV SCH (22:25)
[2024-03-26] MEDS: NS 500 ML IV ONE (22:25)
[2024-03-26 22:31] LABS: BASO % 0.2 % (0.0-1.0); HEMATOCRIT 39.3 % (36.0-47.0); HEMOGLOBIN 12.8 g/dl (12.0-15.5); LYMPH % 7.5 % (24.0-44.0); MEAN CORPUSCULAR HEMOGLOBIN 30.1 pg (27.0-33.0); MEAN CORPUSCULAR HGB CONC 32.6 g/dl (32.0-36.5); MEAN CORPUSCULAR VOLUME 92.5 fl (80.0-96.0); MONO # 1.1 10^3/uL (0.0-0.8); MONO % 8.6 % (2.0-8.0); NEUTROPHILS # 10.9 10^3/uL (1.5-8.5); NEUTROPHILS % 82.9 % (36.0-66.0); PLATELET COUNT, AUTOMATED 267 10^3/uL (150-450); RED BLOOD COUNT 4.25 10^6/uL (4.00-5.40); WHITE BLOOD COUNT 13.2 10^3/uL (4.0-10.0)
[2024-03-26 22:47] LABS: INR 1.35; PARTIAL THROMBOPLASTIN TIME 32.2 SECONDS (24.8-34.2); PROTHROMBIN TIME 16.3 SECONDS (12.5-14.5)
[2024-03-26 22:53] LABS: BLOOD UREA NITROGEN 26 MG/DL (9-23); CALCIUM LEVEL 9.1 MG/DL (8.3-10.6); CARBON DIOXIDE LEVEL 22 MMOL/L (20-31); CHLORIDE LEVEL 108 MMOL/L (98-107); GLOMERULAR FILTRATION RATE > 60.0 (>32); GLUCOSE, FASTING 191 MG/DL (74-106); SODIUM LEVEL 139 MMOL/L (136-145)
[2024-03-26] MEDS ORDERED: ISOVUE-370 76% 100ML VIAL As Ordered ONE (22:57)
[2024-03-27] MEDS ORDERED: BENPAD TOP (00:06)
[2024-03-27] MEDS ORDERED: SENN-23 PO (00:06)
[2024-03-27] MEDS ORDERED: ACET1TAB55 PO (00:19)
[2024-03-27] MEDS ORDERED: MUCI600T31 PO (00:19)
[2024-03-27] MEDS ORDERED: ACET-907 PO (00:19)
[2024-03-27] MEDS ORDERED: NIRM1TAB13 PO (00:19)
[2024-03-27 01:05] LABS: HEMATOCRIT 33.5 % (36.0-47.0); HEMOGLOBIN 10.9 g/dl (12.0-15.5); MEAN CORPUSCULAR HEMOGLOBIN 30.2 pg (27.0-33.0); MEAN CORPUSCULAR HGB CONC 32.5 g/dl (32.0-36.5); MEAN CORPUSCULAR VOLUME 92.8 fl (80.0-96.0); PLATELET COUNT, AUTOMATED 235 10^3/uL (150-450); RED BLOOD COUNT 3.61 10^6/uL (4.00-5.40); WHITE BLOOD COUNT 11.2 10^3/uL (4.0-10.0)
[2024-03-27 01:19] LABS: ALBUMIN 3.5 G/DL (3.2-5.2); ALKALINE PHOSPHATASE 119 U/L (46-116); ALT/SGPT 64 U/L (7.0-40); AST/SGOT 59 U/L (<34); BILIRUBIN,DIRECT 0.1 MG/DL (<0.4); BILIRUBIN,TOTAL 0.4 MG/DL (0.3-1.2); TOTAL PROTEIN 7.1 G/DL (5.7-8.2)
[2024-03-27 01:31] LABS: PROCALCITONIN 0.45 ng/ml
[2024-03-27 03:28] VITALS: BP 142/62; TEMP 99.2; O2SAT 91
[2024-03-27] MEDS: ACETAMINOPHEN TAB 650MG DOSE (2X325MG) PO PRN (03:38)
[2024-03-27 06:11] LABS: HEMATOCRIT 32.1 % (36.0-47.0); HEMOGLOBIN 10.4 g/dl (12.0-15.5); MEAN CORPUSCULAR HEMOGLOBIN 29.9 pg (27.0-33.0); MEAN CORPUSCULAR HGB CONC 32.4 g/dl (32.0-36.5); MEAN CORPUSCULAR VOLUME 92.2 fl (80.0-96.0); PLATELET COUNT, AUTOMATED 231 10^3/uL (150-450); RED BLOOD COUNT 3.48 10^6/uL (4.00-5.40); WHITE BLOOD COUNT 8.2 10^3/uL (4.0-10.0)
[2024-03-27 06:43] LABS: BLOOD UREA NITROGEN 24 MG/DL (9-23); CALCIUM LEVEL 8.1 MG/DL (8.3-10.6); CARBON DIOXIDE LEVEL 21 MMOL/L (20-31); CHLORIDE LEVEL 111 MMOL/L (98-107); CREATININE FOR GFR 0.57 MG/DL (0.55-1.30); GLOMERULAR FILTRATION RATE > 60.0 (>32); GLUCOSE, FASTING 132 MG/DL (74-106); MAGNESIUM LEVEL 1.8 MG/DL (1.8-2.4); POTASSIUM SERUM 4.1 MMOL/L (3.5-5.1); SODIUM LEVEL 141 MMOL/L (136-145)
[2024-03-27 07:45] VITALS: BP 104/58; TEMP 97.8; O2SAT 90
[2024-03-27] MEDS: REMDESIVIR 200 MG in NS 250 ML IV ONE (08:20)
[2024-03-27] MEDS: DOCUSATE SODIUM 100MG CAPSULE PO SCH (08:25)
[2024-03-27] MEDS: SUCRALFATE 1 GM TAB PO SCH (08:25)
[2024-03-27] MEDS: MIRALAX *UNIT DOSE* 17GM PACKET PO SCH (08:25)
[2024-03-27] MEDS: guaiFENesin ER TABLET 600 MG TAB PO SCH (08:26)
[2024-03-27] MEDS: GABAPENTIN 100 MG CAP PO SCH (08:26)
[2024-03-27] MEDS: METOPROLOL SUCC *XL* 12.5MG PER 1/2 TAB (TopROL *XL*) PO SCH (09:00)
[2024-03-27 12:00] VITALS: BP 115/70
[2024-03-27 13:41] VITALS: BP 122/59; TEMP 97.3; O2SAT 92
[2024-03-27 19:36] VITALS: BP 112/63; TEMP 98.2; O2SAT 90
[2024-03-27] MEDS: SENOKOT S TAB PO SCH (21:00)
[2024-03-27] MEDS: SERTRALINE HCL 25 MG TABLET PO SCH (22:08)
[2024-03-27] MEDS: ROSUVASTATIN 10 MG TAB (CRESTOR) PO SCH (22:08)
[2024-03-28 03:18] VITALS: BP 111/63; TEMP 97.9; O2SAT 92
[2024-03-28 05:45] LABS: HEMATOCRIT 28.7 % (36.0-47.0); HEMOGLOBIN 9.4 g/dl (12.0-15.5); MEAN CORPUSCULAR HEMOGLOBIN 29.9 pg (27.0-33.0); MEAN CORPUSCULAR HGB CONC 32.8 g/dl (32.0-36.5); MEAN CORPUSCULAR VOLUME 91.4 fl (80.0-96.0); PLATELET COUNT, AUTOMATED 212 10^3/uL (150-450); RED BLOOD COUNT 3.14 10^6/uL (4.00-5.40); WHITE BLOOD COUNT 8.6 10^3/uL (4.0-10.0)
[2024-03-28 06:01] LABS: BLOOD UREA NITROGEN 24 MG/DL (9-23); CALCIUM LEVEL 8.2 MG/DL (8.3-10.6); CARBON DIOXIDE LEVEL 23 MMOL/L (20-31); CHLORIDE LEVEL 108 MMOL/L (98-107); CREATININE FOR GFR 0.43 MG/DL (0.55-1.30); GLOMERULAR FILTRATION RATE > 60.0 (>32); GLUCOSE, FASTING 101 MG/DL (74-106); POTASSIUM SERUM 3.3 MMOL/L (3.5-5.1); SODIUM LEVEL 139 MMOL/L (136-145)
[2024-03-28 08:02] VITALS: BP 129/60; TEMP 97.9; O2SAT 90
[2024-03-28] MEDS: REMDESIVIR 100 MG in NS 250 ML IV SCH (09:23)
[2024-03-28 09:28] VITALS: BP 107/66
[2024-03-28] MEDS: POTASSIUM CHLORIDE 10MEQ SR TABLET PO ONE (13:08)
[2024-03-28 16:21] VITALS: BP 129/64; TEMP 97.9; O2SAT 93
[2024-03-28 19:20] VITALS: BP 130/60; TEMP 97.6; O2SAT 90
[2024-03-29 04:00] VITALS: BP 117/65; TEMP 97.9; O2SAT 91
[2024-03-29 06:03] LABS: HEMATOCRIT 28.6 % (36.0-47.0); HEMOGLOBIN 9.3 g/dl (12.0-15.5); MEAN CORPUSCULAR HEMOGLOBIN 29.7 pg (27.0-33.0); MEAN CORPUSCULAR HGB CONC 32.5 g/dl (32.0-36.5); MEAN CORPUSCULAR VOLUME 91.4 fl (80.0-96.0); PLATELET COUNT, AUTOMATED 208 10^3/uL (150-450); RED BLOOD COUNT 3.13 10^6/uL (4.00-5.40)
[2024-03-29 06:25] LABS: ALBUMIN 2.8 G/DL (3.2-5.2); ALKALINE PHOSPHATASE 88 U/L (46-116); ALT/SGPT 36 U/L (7.0-40); AST/SGOT 38 U/L (<34); BILIRUBIN,TOTAL 0.4 MG/DL (0.3-1.2); BLOOD UREA NITROGEN 22 MG/DL (9-23); CARBON DIOXIDE LEVEL 21 MMOL/L (20-31); CHLORIDE LEVEL 109 MMOL/L (98-107); GLOMERULAR FILTRATION RATE > 60.0 (>32); GLUCOSE, FASTING 112 MG/DL (74-106); POTASSIUM SERUM 3.7 MMOL/L (3.5-5.1); SODIUM LEVEL 138 MMOL/L (136-145); TOTAL PROTEIN 6.2 G/DL (5.7-8.2)
[2024-03-29 08:05] VITALS: BP 125/62; TEMP 97.8; O2SAT 90
[2024-03-29] MEDS: MOM 30ML SUSPENSION UDC PO PRN (13:47)
[2024-03-29 16:21] VITALS: BP 119/58; TEMP 98.6; O2SAT 90
[2024-03-29] MEDS: BISACODYL 10MG SUPP PR PRN (17:30)
[2024-03-29 19:25] VITALS: BP 116/71; TEMP 97.3; O2SAT 91
[2024-03-29 23:00] VITALS: BP 100/59; TEMP 97.4; O2SAT 92
[2024-03-30 04:25] VITALS: BP 126/62; TEMP 97.7; O2SAT 90
[2024-03-30 07:48] VITALS: BP 125/64; TEMP 98.1; O2SAT 90
[2024-03-30 08:00] VITALS: BP 190/98; TEMP 97.7; O2SAT 98
[2024-03-30 09:16] VITALS: BP 125/64
== END 2024-03-30 13:21 | DRG 536 ==
LOC: EDBD 17:46 → M ED 17:46 → M ED INP 03-27 00:24 → M PCU 03-27 03:37
PROVIDERS: ADMIT Preventive Medicine Undersea and Hyperbaric Medicine; ATTEND Family Medicine
PROC: 30233N1 Transfusion of Nonautologous Red Blood Cells into Peripheral Vein, Percutaneous Approach (ICD-10-PCS; principal; 2024-03-26)
DX: S32.401A Unspecified fracture of right acetabulum, initial encounter for closed fracture (principal); D62 Acute posthemorrhagic anemia; W18.09XA Striking against other object with subsequent fall, initial encounter; E78.5 Hyperlipidemia, unspecified; I25.10 Atherosclerotic heart disease of native coronary artery without angina pectoris; R29.6 Repeated falls; K59.00 Constipation, unspecified; Z66 Do not resuscitate; Z86.73 Personal history of transient ischemic attack (TIA), and cerebral infarction without residual deficits; Z86.711 Personal history of pulmonary embolism; Z90.49 Acquired absence of other specified parts of digestive tract; Z79.01 Long term (current) use of anticoagulants; Z79.02 Long term (current) use of antithrombotics/antiplatelets; Z79.899 Other long term (current) drug therapy; Z88.8 Allergy status to other drugs, medicaments and biological substances; Y92.128 Other place in nursing home as the place of occurrence of the external cause; Y93.9 Activity, unspecified; Y99.8 Other external cause status

== ENCOUNTER → 2024-03-30 | Outpatient (REF) | payer MEDICARE, OTHER, MEDICAID ==
[~2024-03-30] MED LIST changes: +ACET-907 PO; +BENPAD TOP; +MUCI600T31 PO; +NIRM1TAB13 PO; +SENN-23 PO
== END ==
PROVIDERS: ATTEND Physician Assistant
DX: U07.1 COVID-19 (principal); Z53.8 Procedure and treatment not carried out for other reasons

== ENCOUNTER → 2024-04-01 | Outpatient (REF) ==
[2024-04-01 10:20] LABS: HEMATOCRIT 28.1 % (36.0-47.0); HEMOGLOBIN 9.1 g/dl (12.0-15.5); MEAN CORPUSCULAR HEMOGLOBIN 29.4 pg (27.0-33.0); MEAN CORPUSCULAR HGB CONC 32.4 g/dl (32.0-36.5); MEAN CORPUSCULAR VOLUME 90.9 fl (80.0-96.0); PLATELET COUNT, AUTOMATED 414 10^3/uL (150-450); RED BLOOD COUNT 3.09 10^6/uL (4.00-5.40); WHITE BLOOD COUNT 10.5 10^3/uL (4.0-10.0)
[2024-04-01 10:43] LABS: BLOOD UREA NITROGEN 26 MG/DL (9-23); CALCIUM LEVEL 8.6 MG/DL (8.3-10.6); CARBON DIOXIDE LEVEL 23 MMOL/L (20-31); CHLORIDE LEVEL 106 MMOL/L (98-107); CREATININE FOR GFR 0.48 MG/DL (0.55-1.30); GLOMERULAR FILTRATION RATE > 60.0 (>32); GLUCOSE, FASTING 98 MG/DL (74-106); POTASSIUM SERUM 4.3 MMOL/L (3.5-5.1); SODIUM LEVEL 136 MMOL/L (136-145)
== END ==
PROVIDERS: ATTEND Physician Assistant
DX: E78.6 Lipoprotein deficiency (principal)

== ENCOUNTER → 2024-04-06 | Outpatient (REF) | PROVIDERS: ATTEND Physician Assistant | DX: E78.6 Lipoprotein deficiency (principal); Z53.8 Procedure and treatment not carried out for other reasons ==

== ENCOUNTER → 2024-04-08 | Outpatient (REF) ==
[2024-04-08 08:03] LABS: HEMATOCRIT 30.2 % (36.0-47.0); HEMOGLOBIN 9.3 g/dl (12.0-15.5); MEAN CORPUSCULAR HEMOGLOBIN 28.7 pg (27.0-33.0); MEAN CORPUSCULAR HGB CONC 30.8 g/dl (32.0-36.5); MEAN CORPUSCULAR VOLUME 93.2 fl (80.0-96.0); PLATELET COUNT, AUTOMATED 715 10^3/uL (150-450); RED BLOOD COUNT 3.24 10^6/uL (4.00-5.40); WHITE BLOOD COUNT 11.3 10^3/uL (4.0-10.0)
[2024-04-08 08:37] LABS: BLOOD UREA NITROGEN 22 MG/DL (9-23); CALCIUM LEVEL 8.5 MG/DL (8.3-10.6); CARBON DIOXIDE LEVEL 25 MMOL/L (20-31); CHLORIDE LEVEL 106 MMOL/L (98-107); CREATININE FOR GFR 0.48 MG/DL (0.55-1.30); GLOMERULAR FILTRATION RATE > 60.0 (>32); GLUCOSE, FASTING 85 MG/DL (74-106); POTASSIUM SERUM 4.4 MMOL/L (3.5-5.1); SODIUM LEVEL 137 MMOL/L (136-145)
== END ==
PROVIDERS: ATTEND Physician Assistant
DX: E78.6 Lipoprotein deficiency (principal)

== ENCOUNTER → 2024-04-13 | Outpatient (REF) | PROVIDERS: ATTEND Physician Assistant | DX: E78.6 Lipoprotein deficiency (principal); Z53.8 Procedure and treatment not carried out for other reasons ==

== ENCOUNTER → 2024-04-15 | Outpatient (REF) | payer MEDICAID, MEDICARE, OTHER ==
[2024-04-15 12:02] LABS: HEMATOCRIT 35.9 % (36.0-47.0); HEMOGLOBIN 10.8 g/dl (12.0-15.5); MEAN CORPUSCULAR HEMOGLOBIN 28.3 pg (27.0-33.0); MEAN CORPUSCULAR HGB CONC 30.1 g/dl (32.0-36.5); MEAN CORPUSCULAR VOLUME 94.2 fl (80.0-96.0); PLATELET COUNT, AUTOMATED 725 10^3/uL (150-450); RED BLOOD COUNT 3.81 10^6/uL (4.00-5.40); WHITE BLOOD COUNT 10.7 10^3/uL (4.0-10.0)
== END ==
PROVIDERS: ATTEND Physician Assistant
DX: E78.49 Other hyperlipidemia (principal)

== ENCOUNTER → 2024-04-15 | Outpatient (CLI) | payer MEDICARE, OTHER, MEDICAID | LOC: M SOG 07:56 | PROVIDERS: ATTEND Physician Assistant | DX: M25.551 Pain in right hip (principal); R93.7 Abnormal findings on diagnostic imaging of other parts of musculoskeletal system ==

== ENCOUNTER → 2024-04-17 | Outpatient (REF) ==
[2024-04-17 08:52] LABS: HEMATOCRIT 33.6 % (36.0-47.0); HEMOGLOBIN 10.2 g/dl (12.0-15.5); MEAN CORPUSCULAR HEMOGLOBIN 28.7 pg (27.0-33.0); MEAN CORPUSCULAR HGB CONC 30.4 g/dl (32.0-36.5); MEAN CORPUSCULAR VOLUME 94.6 fl (80.0-96.0); PLATELET COUNT, AUTOMATED 611 10^3/uL (150-450); RED BLOOD COUNT 3.55 10^6/uL (4.00-5.40); WHITE BLOOD COUNT 9.4 10^3/uL (4.0-10.0)
== END ==
PROVIDERS: ATTEND Physician Assistant
DX: U07.1 COVID-19 (principal)

== ENCOUNTER → 2024-04-20 | Outpatient (REF) | payer MEDICAID, MEDICARE, OTHER ==
[2024-04-20 08:41] LABS: HEMATOCRIT 35.7 % (36.0-47.0); HEMOGLOBIN 10.8 g/dl (12.0-15.5); MEAN CORPUSCULAR HEMOGLOBIN 29.1 pg (27.0-33.0); MEAN CORPUSCULAR HGB CONC 30.3 g/dl (32.0-36.5); MEAN CORPUSCULAR VOLUME 96.2 fl (80.0-96.0); PLATELET COUNT, AUTOMATED 530 10^3/uL (150-450); RED BLOOD COUNT 3.71 10^6/uL (4.00-5.40); WHITE BLOOD COUNT 7.8 10^3/uL (4.0-10.0)
== END ==
PROVIDERS: ATTEND Physician Assistant
DX: E78.49 Other hyperlipidemia (principal)

== ENCOUNTER → 2024-05-25 | Outpatient (REF) ==
[~2024-05-25] MED LIST changes: -ROSU20TA61 PO; +ROSU20TA86 PO; -SENN-111 PO; +SENN-165 PO
== END ==
PROVIDERS: ATTEND Physician Assistant
DX: E55.9 Vitamin D deficiency, unspecified (principal)

== ENCOUNTER → 2024-05-27 | Outpatient (CLI) | payer MEDICARE, OTHER, MEDICAID | LOC: M SOG 07:24 | PROVIDERS: ATTEND Physician Assistant | DX: M25.551 Pain in right hip (principal) ==

== ENCOUNTER 2024-06-16 16:31 | Emergency (ER) | payer MEDICARE, OTHER, MEDICAID ==
[~2024-06-16] VITALS: Ht 157.5 cm; Wt 53.6 kg
[~2024-06-16 16:31] MED LIST changes: -LACT237L59 PO
[2024-06-16 16:41] VITALS: TEMP 96.6
[2024-06-16] MEDS ORDERED: LACT237L59 PO (18:41)
[2024-06-16] MEDS ORDERED: CLOP75TA2 PO (18:42)
[2024-06-16] MEDS ORDERED: HOME MED LIST COMPLETE! XX SCH (18:45)
[2024-06-16 19:03] LABS: HEMATOCRIT 41.8 % (36.0-47.0); HEMOGLOBIN 13.4 g/dl (12.0-15.5); MEAN CORPUSCULAR HEMOGLOBIN 29.2 pg (27.0-33.0); MEAN CORPUSCULAR HGB CONC 32.1 g/dl (32.0-36.5); MEAN CORPUSCULAR VOLUME 91.1 fl (80.0-96.0); PLATELET COUNT, AUTOMATED 333 10^3/uL (150-450); RED BLOOD COUNT 4.59 10^6/uL (4.00-5.40); WHITE BLOOD COUNT 6.4 10^3/uL (4.0-10.0)
[2024-06-16 19:34] LABS: BLOOD UREA NITROGEN 21 MG/DL (9-23); CALCIUM LEVEL 9.8 MG/DL (8.3-10.6); CARBON DIOXIDE LEVEL 28 MMOL/L (20-31); CHLORIDE LEVEL 106 MMOL/L (98-107); CREATININE FOR GFR 0.61 MG/DL (0.55-1.30); GLOMERULAR FILTRATION RATE > 60.0 (>32); GLUCOSE, FASTING 99 MG/DL (74-106); POTASSIUM SERUM 4.3 MMOL/L (3.5-5.1); SODIUM LEVEL 139 MMOL/L (136-145)
[2024-06-16 20:30] VITALS: BP 112/59; O2SAT 94
[2024-06-16 20:58] VITALS: O2SAT 98
== END 2024-06-16 20:59 | disposition home or self-care (01) ==
LOC: M ED 16:31 → EDBD 16:31 → M ED 20:59
DX: S70.01XA Contusion of right hip, initial encounter (principal); Y92.019 Unspecified place in single-family (private) house as the place of occurrence of the external cause; Y93.9 Activity, unspecified; Y99.9 Unspecified external cause status; W01.0XXA Fall on same level from slipping, tripping and stumbling without subsequent striking against object, initial encounter; I45.10 Unspecified right bundle-branch block; E78.5 Hyperlipidemia, unspecified; I25.119 Atherosclerotic heart disease of native coronary artery with unspecified angina pectoris; Z88.8 Allergy status to other drugs, medicaments and biological substances; Z79.1 Long term (current) use of non-steroidal anti-inflammatories (NSAID); Z79.899 Other long term (current) drug therapy

== ENCOUNTER → 2024-06-16 | Outpatient (REF) | payer MEDICARE, OTHER, MEDICAID ==
[~2024-06-16] MED LIST changes: +LACT237L59 PO
== END ==
PROVIDERS: ATTEND Family Medicine
DX: M89.8X5 Other specified disorders of bone, thigh (principal); S32.591D Other specified fracture of right pubis, subsequent encounter for fracture with routine healing; S32.592D Other specified fracture of left pubis, subsequent encounter for fracture with routine healing

== ENCOUNTER → 2024-06-24 | Outpatient (REF) | payer MEDICARE, OTHER, MEDICAID ==
[~2024-06-24] MED LIST changes: +LACT237L59 PO
[2024-06-24 08:56] LABS: HEMATOCRIT 46.8 % (36.0-47.0); HEMOGLOBIN 14.5 g/dl (12.0-15.5); MEAN CORPUSCULAR HEMOGLOBIN 28.7 pg (27.0-33.0); MEAN CORPUSCULAR VOLUME 92.5 fl (80.0-96.0); PLATELET COUNT, AUTOMATED 335 10^3/uL (150-450); RED BLOOD COUNT 5.06 10^6/uL (4.00-5.40); WHITE BLOOD COUNT 7.8 10^3/uL (4.0-10.0)
[2024-06-24 09:42] LABS: BLOOD UREA NITROGEN 19 MG/DL (9-23); CALCIUM LEVEL 9.5 MG/DL (8.3-10.6); CARBON DIOXIDE LEVEL 27 MMOL/L (20-31); CHLORIDE LEVEL 107 MMOL/L (98-107); CREATININE FOR GFR 0.46 MG/DL (0.55-1.30); GLOMERULAR FILTRATION RATE > 60.0 (>32); GLUCOSE, FASTING 85 MG/DL (74-106); POTASSIUM SERUM 4.3 MMOL/L (3.5-5.1); SODIUM LEVEL 140 MMOL/L (136-145)
== END ==
PROVIDERS: ATTEND Physician Assistant
DX: E87.6 Hypokalemia (principal)

== ENCOUNTER → 2024-07-27 | Outpatient (REF) | payer MEDICARE, OTHER, MEDICAID | LOC: M PLAIMG 15:23 | PROVIDERS: ATTEND Family Medicine | DX: R52 Pain, unspecified (principal) ==

== ENCOUNTER → 2024-07-28 | Outpatient (CLI) | payer MEDICARE, OTHER, MEDICAID | LOC: M SOG 07:51 | PROVIDERS: ATTEND Physician Assistant | DX: S32.591D Other specified fracture of right pubis, subsequent encounter for fracture with routine healing (principal) ==

== ENCOUNTER → 2024-09-21 | Outpatient (REF) | payer MEDICARE, OTHER, MEDICAID ==
[2024-09-21 08:00] LABS: HEMATOCRIT 43.5 % (36.0-47.0); HEMOGLOBIN 13.7 g/dl (12.0-15.5); MEAN CORPUSCULAR HEMOGLOBIN 29.7 pg (27.0-33.0); MEAN CORPUSCULAR HGB CONC 31.5 g/dl (32.0-36.5); MEAN CORPUSCULAR VOLUME 94.4 fl (80.0-96.0); PLATELET COUNT, AUTOMATED 355 10^3/uL (150-450); RED BLOOD COUNT 4.61 10^6/uL (4.00-5.40); WHITE BLOOD COUNT 6.8 10^3/uL (4.0-10.0)
[2024-09-21 08:31] LABS: BLOOD UREA NITROGEN 36 MG/DL (9-23); CALCIUM LEVEL 8.9 MG/DL (8.3-10.6); CARBON DIOXIDE LEVEL 27 MMOL/L (20-31); CHLORIDE LEVEL 108 MMOL/L (98-107); CREATININE FOR GFR 0.56 MG/DL (0.55-1.30); GLOMERULAR FILTRATION RATE > 60.0 (>32); GLUCOSE, FASTING 83 MG/DL (74-106); SODIUM LEVEL 144 MMOL/L (136-145)
== END ==
PROVIDERS: ATTEND Physician Assistant
DX: E87.6 Hypokalemia (principal)

== ENCOUNTER → 2024-11-12 | Outpatient (REF) | payer MEDICARE, OTHER, MEDICAID | PROVIDERS: ATTEND Physician Assistant | DX: R05.9 Cough, unspecified (principal) ==

== ENCOUNTER → 2024-11-23 | Outpatient (REF) | payer MEDICARE, OTHER, MEDICAID | PROVIDERS: ATTEND Physician Assistant | DX: E55.9 Vitamin D deficiency, unspecified (principal) ==

== ENCOUNTER → 2024-12-21 | Outpatient (REF) | payer MEDICARE, OTHER, MEDICAID ==
[2024-12-21 08:20] LABS: HEMATOCRIT 42.6 % (36.0-47.0); HEMOGLOBIN 13.8 g/dl (12.0-15.5); MEAN CORPUSCULAR HEMOGLOBIN 30.7 pg (27.0-33.0); MEAN CORPUSCULAR HGB CONC 32.4 g/dl (32.0-36.5); MEAN CORPUSCULAR VOLUME 94.7 fl (80.0-96.0); PLATELET COUNT, AUTOMATED 293 10^3/uL (150-450)
[2024-12-21 08:47] LABS: BLOOD UREA NITROGEN 18 MG/DL (9-23); CARBON DIOXIDE LEVEL 25 MMOL/L (20-31); CHLORIDE LEVEL 109 MMOL/L (98-107); GLOMERULAR FILTRATION RATE > 90.0 (>32); GLUCOSE, FASTING 81 MG/DL (74-106); SODIUM LEVEL 144 MMOL/L (136-145)
== END ==
PROVIDERS: ATTEND Physician Assistant
DX: E87.6 Hypokalemia (principal)

== ENCOUNTER → 2025-03-22 | Outpatient (REF) | payer MEDICARE, OTHER, MEDICAID ==
[~2025-03-22] MED LIST changes: -PRAV40TA2 PO; +PRAV40TA85 PO
[2025-03-22 11:11] LABS: PLATELET COUNT, AUTOMATED 362 10^3/uL (150-450)
[2025-03-22 11:43] LABS: CALCIUM LEVEL 9.1 MG/DL (8.3-10.6); CARBON DIOXIDE LEVEL 27 MMOL/L (20-31); CHLORIDE LEVEL 107 MMOL/L (98-107); CREATININE FOR GFR 0.51 MG/DL (0.55-1.30); GLOMERULAR FILTRATION RATE > 90.0 (>32); POTASSIUM SERUM 3.8 MMOL/L (3.5-5.1); SODIUM LEVEL 146 MMOL/L (136-145)
== END ==
PROVIDERS: ATTEND Physician Assistant
DX: E87.6 Hypokalemia (principal)

== ENCOUNTER → 2025-05-26 | Outpatient (REF) | payer MEDICARE, OTHER, MEDICAID | PROVIDERS: ATTEND Physician Assistant | DX: E55.9 Vitamin D deficiency, unspecified (principal) ==

== ENCOUNTER → 2025-06-23 | Outpatient (REF) | payer MEDICARE, OTHER, MEDICAID ==
[2025-06-23 10:52] LABS: PLATELET COUNT, AUTOMATED 366 10^3/uL (150-450)
[2025-06-23 11:23] LABS: CALCIUM LEVEL 8.8 MG/DL (8.3-10.6); CARBON DIOXIDE LEVEL 28 MMOL/L (20-31); CHLORIDE LEVEL 105 MMOL/L (98-107); CREATININE FOR GFR 0.47 MG/DL (0.55-1.30); GLOMERULAR FILTRATION RATE > 90.0 (>32); POTASSIUM SERUM 4.3 MMOL/L (3.5-5.1); SODIUM LEVEL 142 MMOL/L (136-145)
== END ==
PROVIDERS: ATTEND Physician Assistant
DX: E87.6 Hypokalemia (principal)